=== PATIENT | female | born 1960 | race Caucasian/White ===

== ENCOUNTER 2016-11-17 00:49 | Observation (INO) | payer BC ==
[2016-11-17] MEDS ORDERED: Ketorolac 30 MG/ML SDV IVPUSH ONE (01:41)
[2016-11-17] MEDS ORDERED: Sodium Chloride 0.9% 1,000 ML IV SCH ×4 (01:45→05:15)
[2016-11-17] MEDS ORDERED: Ondansetron 4 MG/2 ML SDV IVPUSH ONE (02:33)
[2016-11-17] MEDS ORDERED: HYDROmorphone 0.5 MG/0.5 ML Syringe IVPUSH ONE (02:34)
[2016-11-17] MEDS ORDERED: Acetaminophen 325 MG Tab PO ONE (02:58)
[2016-11-17] MEDS ORDERED: Doxycycline 100 MG in Sodium Chloride 0.9% 100 ML IV ONE (02:59)
[2016-11-17] MEDS ORDERED: Doxycycline 100 MG Vial ONE (03:02)
--- NOTE | 2016-11-17 03:22 | EDM.PDOC ---
ED HPI GENERAL MEDICAL PROBLEM - General Chief Complaint: Headache Stated Complaint: HEADACHE FOR 2 DAYS Time Seen by Provider: 11/17/16 01:35 Source of Information: Reports: Patient History Limitations: Reports: No Limitations - History of Present Illness INITIAL COMMENTS - FREE TEXT/NARRATIVE: pt arrived looking very flushed and had a temp of 104. She was complaining of a severe headache, Onset: Gradual, Other (past 2 days. ) Duration: Day(s): headache Pain Score (Numeric/FACES): 7 - Related Data Allergies Allergy/AdvReac Type Severity Reaction Status Date / Time naproxen Allergy Rash Verified 11/17/16 01:14 Home Meds: Home Meds ALPRAZolam [Xanax] 0.5 mg PO BID PRN 07/05/14 [History] Escitalopram Oxalate [Lexapro] 20 mg PO DAILY 07/05/14 [History] Hydrocodone/Acetaminophen [Hydrocodon-Acetaminophen 5-325] 1 each PO QID [History] Zolpidem Tartrate 10 mg PO BEDTIME PRN 07/05/14 [History] QUEtiapine [SEROquel XR] 50 mg PO BEDTIME 11/17/16 [History] predniSONE [Prednisone] 10 mg PO TID 11/17/16 [History] Past Medical History HEENT History: Reports: Impaired Vision Cardiovascular History: Reports: None Respiratory History: Reports: None Gastrointestinal History: Reports: None Genitourinary History: Reports: None [employer] History: Reports: Musculoskeletal History: Reports: Arthritis Other Musculoskeletal History: left knee needs total replacement Neurological History: Reports: None Psychiatric History: Reports: Anxiety Endocrine/Metabolic History: Reports: None Hematologic History: Reports: None Immunologic History: Reports: None Oncologic (Cancer) History: Reports: None Dermatologic History: Reports: None - Infectious Disease History Infectious Disease History: Reports: Chicken Pox, Measles, Mumps, Rubella, Shingles - Past Surgical History Head Surgeries/Procedures: Reports: None HEENT Surgical History: Reports: None Cardiovascular Surgical History: Reports: None Respiratory Surgical History: Reports: None GI Surgical History: Reports: None Female Surgical History: Reports: Hysterectomy, Salpingo-Oophorectomy Endocrine Surgical History: Reports: None Neurological Surgical History: Reports: None Musculoskeletal Surgical History: Reports: Knee Replacement, Other (See Below) Other Musculoskeletal Surgeries/Procedures:: left knee replacement Oncologic Surgical History: Reports: None Dermatological Surgical History: Reports: None Social & Family History - Tobacco Use Smoking Status *Q: Current Every Day Smoker Years of Tobacco use: 13 Packs/Tins Daily: 0.5 - Caffeine Use Caffeine Use: Reports: Soda - Recreational Drug Use Recreational Drug Use: No ED ROS GENERAL - Review of Systems Review Of Systems: See Below Constitutional: Reports: Fever, Chills, Malaise, Diaphoresis HEENT: Reports: Other ( throat is painful. ) Respiratory: Reports: No Symptoms Cardiovascular: Reports: No Symptoms Endocrine: Reports: No Symptoms GI/Abdominal: Reports: No Symptoms : Reports: No Symptoms Musculoskeletal: Reports: Muscle Pain, Muscle Stiffness Skin: Reports: No Symptoms Neurological: Reports: Headache - Physical Exam Exam: See Below Text/Narrative:: pt arrived with a temp of 104. She was very flushed she had a severe headache, She was nauseated but did not vomit. Exam Limited By: No Limitations General Appearance: Alert, Anxious, Moderate Distress, Other (pupils equal and reactive. ) Ears: Normal TMs Nose: Normal Inspection Throat/Mouth: Normal Inspection Head Exam: Atraumatic Neck: Normal Inspection, Tender Lateral, Other ( alot of muscle spasm. ) Respiratory/Chest: No Respiratory Distress Cardiovascular: Regular Rate, Rhythm GI/Abdominal: Soft (Female) Exam: Deferred Rectal (Female) Exam: Deferred Neuro Exam (Abbreviated): Alert, Oriented, Normal Cognition Back Exam: Normal Inspection Extremities: Normal Inspection Psychiatric: Anxious Skin Exam: Warm, Other ( very flushed appearing. ) Course - Vital Signs Last Recorded V/S: Last Vital Signs Temp 37.3 C 11/17/16 03:46 Pulse 108 H 11/17/16 02:47 Resp 17 11/17/16 02:47 BP 130/71 11/17/16 02:47 Pulse Ox 96 11/17/16 02:47 - Orders/Labs/Meds Orders: Active Orders 24 hr Category Date Time Status BABESIA MICROTI IGG AND IGM [REF] Stat Lab 11/17/16 01:40 Received CULTURE BLOOD [BC] Urgent Lab 11/17/16 01:40 Received CULTURE BLOOD [BC] Urgent Lab 11/17/16 01:45 Received CULTURE STREP A CONFIRMATION [RM] Stat Lab 11/17/16 01:35 Results EHRLICHIA CHAFFEENSIS, IGG&IGM [REF] Stat Lab 11/17/16 01:40 Received LYME AB SCREEN RFLX [REF] Stat Lab 11/17/16 01:40 Received STREP SCRN A RAPID W CULT CONF [RM] Stat Lab 11/17/16 01:35 Results Sodium Chloride 0.9% [Normal Saline] 1,000 ml Med 11/17/16 01:45 Active IV ASDIRECTED Sodium Chloride 0.9% [Normal Saline] 1,000 ml Med 11/17/16 03:00 Active IV ASDIRECTED Sodium Chloride 0.9% [Normal Saline] 1,000 ml Med 11/17/16 03:00 Active IV ASDIRECTED Blood Culture x2 Reflex Set [OM.PC] Urgent Oth 11/17/16 01:39 Ordered Medication Orders Sodium Chloride (Normal Saline) 1,000 mls @ 999 mls/hr IV ASDIRECTED KEITH Last Admin: 11/17/16 01:45 Dose: 999 mls/hr Sodium Chloride (Normal Saline) 1,000 mls @ 999 mls/hr IV ASDIRECTED KEITH Last Admin: 11/17/16 03:14 Dose: 999 mls/hr Sodium Chloride (Normal Saline) 1,000 mls @ 200 mls/hr IV ASDIRECTED KEITH Last Admin: 11/17/16 04:30 Dose: 200 mls/hr Labs: Laboratory Tests 11/17/16 11/17/16 11/17/16 Range/Units 01:40 01:40 01:40 WBC 6.1 (4.5-11.0) K/uL RBC 5.17 (3.30-5.50) M/uL Hgb 16.2 H (12.0-15.0) g/dL Hct 47.4 (36.0-48.0) % MCV 92 (80-98) fL MCH 31 (27-31) pg MCHC 34 (32-36) % Plt Count 125 L (150-400) K/uL Add Manual Diff Yes Neutrophils % (Manual) 68 H (36-66) % Band Neutrophils % 17 H (5-11) % Lymphocytes % (Manual) 10 L (24-44) % Monocytes % (Manual) 5 (2-6) % Sodium 134 L (140-148) mmol/L Potassium 3.5 L (3.6-5.2) mmol/L Chloride 98 L (100-108) mmol/L Carbon Dioxide 23 (21-32) mmol/L Anion Gap 16.5 H (5.0-14.0) mmol/L BUN 7 (7-18) mg/dL Creatinine 0.9 (0.6-1.0) mg/dL Est Cr Clr Drug Dosing 68.68 mL/min Estimated GFR (MDRD) > 60 (>60) Glucose 132 H (74-106) mg/dL Lactic Acid (0.4-2.0) mmol/L Calcium 10.7 H (8.5-10.1) mg/dL Total Bilirubin 0.4 (0.2-1.0) mg/dL AST 100 H (15-37) U/L ALT 91 H (12-78) U/L Alkaline Phosphatase 164 H (46-116) U/L C-Reactive Protein 13.41 H (0.0-0.3) mg/dL Total Protein 8.1 (6.4-8.2) g/dL Albumin 3.2 L (3.4-5.0) g/dL Globulin 4.9 H (2.3-3.5) g/dL Albumin/Globulin Ratio 0.7 L (1.2-2.2) Urine Color Urine Appearance Urine pH (4.5-8.0) Ur Specific [place] (1.008-1.030) Urine Protein (NEGATIVE) mg/dL Urine Glucose (UA) (NEGATIVE) mg/dL Urine Ketones (NEGATIVE) mg/dL Urine Occult Blood (NEGATIVE) Urine Nitrite (NEGATIVE) Urine Bilirubin (NEGATIVE) Urine Urobilinogen (NORMAL) mg/dL Ur Leukocyte Esterase (NEGATIVE) Urine RBC (0-5) Urine WBC (0-5) Ur Epithelial Cells Amorphous Sediment Urine Bacteria Urine Mucus 11/17/16 11/17/16 Range/Units 01:45 01:55 WBC (4.5-11.0) K/uL RBC (3.30-5.50) M/uL Hgb (12.0-15.0) g/dL Hct (36.0-48.0) % MCV (80-98) fL MCH (27-31) pg MCHC (32-36) % Plt Count (150-400) K/uL Add Manual Diff Neutrophils % (Manual) (36-66) % Band Neutrophils % (5-11) % Lymphocytes % (Manual) (24-44) % Monocytes % (Manual) (2-6) % Sodium (140-148) mmol/L Potassium (3.6-5.2) mmol/L Chloride (100-108) mmol/L Carbon Dioxide (21-32) mmol/L Anion Gap (5.0-14.0) mmol/L BUN (7-18) mg/dL Creatinine (0.6-1.0) mg/dL Est Cr Clr Drug Dosing mL/min Estimated GFR (MDRD) (>60) Glucose (74-106) mg/dL Lactic Acid 1.7 (0.4-2.0) mmol/L Calcium (8.5-10.1) mg/dL Total Bilirubin (0.2-1.0) mg/dL AST (15-37) U/L ALT (12-78) U/L Alkaline Phosphatase (46-116) U/L C-Reactive Protein (0.0-0.3) mg/dL Total Protein (6.4-8.2) g/dL Albumin (3.4-5.0) g/dL Globulin (2.3-3.5) g/dL Albumin/Globulin Ratio (1.2-2.2) Urine Color Yellow Urine Appearance Clear Urine pH 8.0 (4.5-8.0) Ur Specific [place] 1.015 (1.008-1.030) Urine Protein Negative (NEGATIVE) mg/dL Urine Glucose (UA) Normal (NEGATIVE) mg/dL Urine Ketones Negative (NEGATIVE) mg/dL Urine Occult Blood Large (NEGATIVE) Urine Nitrite Negative (NEGATIVE) Urine Bilirubin Negative (NEGATIVE) Urine Urobilinogen Normal (NORMAL) mg/dL Ur Leukocyte Esterase Negative (NEGATIVE) Urine RBC 0-5 (0-5) Urine WBC 0-5 (0-5) Ur Epithelial Cells Moderate Amorphous Sediment Not seen Urine Bacteria Few Urine Mucus Not seen Meds: Medications Generic Name Dose Route Start Last Admin Trade Name Freq PRN Reason Stop Dose Admin Sodium Chloride 1,000 mls @ 999 mls/hr 11/17/16 01:45 11/17/16 01:45 Normal Saline IV 999 mls/hr ASDIRECTED KEITH Administration Sodium Chloride 1,000 mls @ 999 mls/hr 11/17/16 03:00 11/17/16 03:14 Normal Saline IV 999 mls/hr ASDIRECTED KEITH Administration Sodium Chloride 1,000 mls @ 200 mls/hr 11/17/16 03:00 11/17/16 04:30 Normal Saline IV 200 mls/hr ASDIRECTED KEITH Administration Discontinued Medications Generic Name Dose Route Start Last Admin Trade Name Christa PRN Reason Stop Dose Admin Acetaminophen 1,000 mg 11/17/16 02:58 11/17/16 03:16 Tylenol PO 11/17/16 02:59 1,000 mg NOW ONE Administration Doxycycline Hyclate Confirm 11/17/16 03:02 11/17/16 03:18 Vibramycin Administered 11/17/16 03:03 Not Given Dose 100 mg .ROUTE .STK-MED ONE Hydromorphone HCl 0.5 mg 11/17/16 02:34 11/17/16 02:47 Dilaudid IVPUSH 11/17/16 02:35 0.5 mg ONETIME ONE Administration Doxycycline Hyclate 100 mg/ 100 mls @ 100 mls/hr 11/17/16 02:59 11/17/16 03: 18 Sodium Chloride IV 11/17/16 03:58 100 mls/hr ONETIME ONE Administration Ketorolac Tromethamine 30 mg 11/17/16 01:41 11/17/16 01:52 Toradol IVPUSH 11/17/16 01:42 30 mg ONETIME ONE Administration Ondansetron HCl 4 mg 11/17/16 02:33 11/17/16 02:47 Zofran IVPUSH 11/17/16 02:34 4 mg ONETIME ONE Administration - Re-Assessments/Exams Free Text/Narrative Re-Assessment/Exam: 11/17/16 04:43 pt was found to have elevated liver enzymes, wbc is not high platlets are low, her crp is elevated. She had tick studies drawn. She was given doxycline. Departure - Departure Time of Disposition: 04:44 Disposition: Admitted As Inpatient 67 Condition: Fair Clinical Impression: Anaplasmosis - Discharge Information Forms: ED Department Discharge Care Plan Goals: admit to Dr Lomax. - My Orders Last 24 Hours: My Active Orders 11/17/16 01:35 CULTURE STREP A CONFIRMATION [RM] Stat STREP SCRN A RAPID W CULT CONF [RM] Stat 11/17/16 01:39 Blood Culture x2 Reflex Set [OM.PC] Urgent 11/17/16 01:40 BABESIA MICROTI IGG AND IGM [REF] Stat CULTURE BLOOD [BC] Urgent EHRLICHIA CHAFFEENSIS, IGG&IGM [REF] Stat LYME AB SCREEN RFLX [REF] Stat 11/17/16 01:45 CULTURE BLOOD [BC] Urgent Sodium Chloride 0.9% [Normal Saline] 1,000 ml IV ASDIRECTED 11/17/16 03:00 Sodium Chloride 0.9% [Normal Saline] 1,000 ml IV ASDIRECTED Sodium Chloride 0.9% [Normal Saline] 1,000 ml IV ASDIRECTED - Assessment/Plan Last 24 Hours: My Active Orders 11/17/16 01:35 CULTURE STREP A CONFIRMATION [RM] Stat STREP SCRN A RAPID W CULT CONF [RM] Stat 11/17/16 01:39 Blood Culture x2 Reflex Set [OM.PC] Urgent 11/17/16 01:40 BABESIA MICROTI IGG AND IGM [REF] Stat CULTURE BLOOD [BC] Urgent EHRLICHIA CHAFFEENSIS, IGG&IGM [REF] Stat LYME AB SCREEN RFLX [REF] Stat 11/17/16 01:45 CULTURE BLOOD [BC] Urgent Sodium Chloride 0.9% [Normal Saline] 1,000 ml IV ASDIRECTED 11/17/16 03:00 Sodium Chloride 0.9% [Normal Saline] 1,000 ml IV ASDIRECTED Sodium Chloride 0.9% [Normal Saline] 1,000 ml IV ASDIRECTED
[2016-11-17] MEDS ORDERED: Acetaminophen 325 MG Tab PO PRN (05:15)
[2016-11-17] MEDS ORDERED: Doxycycline 100 MG in Sodium Chloride 0.9% 100 ML IV SCH (05:30)
[2016-11-17] MEDS ORDERED: Zolpidem 5 MG Tab PO PRN (05:45)
--- NOTE | 2016-11-17 06:21 | HP ---
CHIEF COMPLAINT: Headache with fever. HISTORY OF PRESENT ILLNESS: A 56-year-old, who has not had any known tick bites, no rashes, states that for the last 4 days has had significant headache, which has worsened, fever, chills, back and body aches. Otherwise no other complaints other than sore throat, came into emergency room for further evaluation. Strep test was negative, suspected anaplasmosis and I was asked to admit the patient for further evaluation treatment. PAST MEDICAL HISTORY: She is on prednisone right now because of foot issue that she is going to be having surgery done at [place] and she is on prednisone 10 mg 3 times a day for 7 days. She also has a history of anxiety. She has had a history of chronic pain as well as history of insomnia. She has had history of arthritis. MEDICATIONS: 1. Alprazolam 0.5 mg b.i.d. p.r.n. 2. Lexapro 20 mg daily. 3. Hydrocodone q.i.d. 4. Seroquel 50 mg at bedtime. 5. Zolpidem 10 mg at bedtime. 6. Prednisone 10 mg t.i.d. for another 2 days. ALLERGIES: NAPROXEN. SOCIAL HISTORY: Has been a smoker. FAMILY HISTORY: Noncontributory. REVIEW OF SYSTEMS: She does report headaches. No vision changes. She has a sore throat but no other upper respiratory symptoms. No cough, shortness of breath, or chest pain. No nausea, vomiting, diarrhea, or constipation. No urinary problems reported. No skin problems. Has not noticed a definite tick bite. No neurologic complaints other than above. OBJECTIVE: VITAL SIGNS: Weight 72.3 kg. Temperature initially 40.0, now 37.3; pulse initially was 144, now is 108; blood pressure 134/87; respirations 22 initially, now 17; and O2 saturation 98% on room air. HEENT: Pharynx is unremarkable. NECK: Supple. No adenopathy or thyromegaly. LUNGS: Clear. HEART: Regular without murmurs. ABDOMEN: Soft. Nontender. No mass or organomegaly palpated. EXTREMITIES: No edema. SKIN: Negative for rashes. She did, however, have achiness of her muscles. NEUROLOGIC: The patient seems to be alert and oriented, resting comfortably. Apparently when she drove herself in, she was quite dizzy. LABORATORY DATA: White count 6.1, hemoglobin 16.2, and platelets 125,000 with 68% neutrophils, 17% bands, 10% lymphocytes. Sodium 134, potassium 3.5, chloride was 98, BUN 7, and creatinine 0.9. Liver functions: AST was elevated at 100, ALT 91, C-reactive protein was elevated at 13.41. Urinalysis was unremarkable. Rapid strep was negative. ASSESSMENT AND PLAN: Headache and fever with myalgias. No definite tick bites. It certainly sounds like anaplasmosis with lab picture also. The patient already started on IV doxycycline, which we will continue every 12 hours. Tylenol for fever. Transfer care to hospitalist service. Admit her for observation. Anticipate less than 2 midnight stay. Familia Lomax MD /[phone]
[2016-11-17] MEDS: Acetaminophen/HYDROcodone 325-5 MG Tab PO SCH ×2 (07:08→09:52)
[2016-11-17] MEDS: ALPRAZolam 0.5 MG Tab PO PRN ×2 (07:09→19:34)
[2016-11-17] MEDS: predniSONE 10 MG Tab PO SCH ×3 (08:09→17:16)
[2016-11-17] MEDS ORDERED: Lactated Ringers 1,000 ML IV SCH (08:15)
[2016-11-17] MEDS ORDERED: Potassium Chloride 20 MEQ Tab.ER PO ONE (09:00)
[2016-11-17] MEDS: Escitalopram 20 MG Tab PO SCH (09:49)
--- NOTE | 2016-11-17 11:23 | PCM.PN ---
- General Info Date of Service: 11/17/16 Functional Status: Reports: Pain Controlled, Urinating - Review of Systems General: Reports: Fever, Weakness. Denies: Chills HEENT: Reports: Headaches Pulmonary: Reports: No Symptoms Cardiovascular: Reports: No Symptoms Gastrointestinal: Reports: Decreased Appetite. Denies: Constipation, Diarrhea, Nausea, Vomiting Systems Review Comment:: Ms. Weston is a 56-year-old woman who was admitted early this morning with fever, headache, myalgias, dehydration, secondary to anaplasmosis. Symptoms have been present for 2-3 days prior to admission and had gradually increased in intensity. She is feeling better with significant improvement in symptoms over the past few hours. - Patient Data Vitals - Most Recent: Last Vital Signs Temp 98.1 F 11/17/16 07:20 Pulse 81 11/17/16 07:20 Resp 16 11/17/16 07:20 BP 89/51 L 11/17/16 07:20 Pulse Ox 97 11/17/16 07:20 Weight - Most Recent: 161 lb I&O - Last 24 Hours: Intake & Output 11/16/16 11/17/16 11/17/16 22:59 06:59 14:59 Intake Total 300 Output Total 600 Balance -300 Med Orders - Current: Current Medications Acetaminophen (Tylenol) 650 mg PO Q4H PRN PRN Reason: Pain (Mild 1-3)/fever Hydrocodone Bitart/Acetaminophen ([place] 325-5 Mg) 1 tab PO QID [facility] Last Admin: 11/17/16 09:52 Dose: 1 tab Alprazolam (Xanax) 0.5 mg PO BID PRN PRN Reason: Anxiety Last Admin: 11/17/16 07:09 Dose: 0.5 mg Escitalopram Oxalate (Lexapro) 20 mg PO DAILY [facility] Last Admin: 11/17/16 09:49 Dose: 20 mg Sodium Chloride (Normal Saline) 1,000 mls @ 999 mls/hr IV ASDIRECTED [facility] Last Admin: 11/17/16 03:14 Dose: 999 mls/hr Doxycycline Hyclate 100 mg/ (Sodium Chloride) 100 mls @ 100 mls/hr IV Q12H [facility] Prednisone (Prednisone) 10 mg PO TIDMEALS [facility] Last Admin: 11/17/16 08:09 Dose: 10 mg Quetiapine Fumarate (Seroquel Xr) 50 mg PO BEDTIME KEITH Zolpidem Tartrate (Ambien) 10 mg PO BEDTIME PRN PRN Reason: Insomnia Discontinued Medications Acetaminophen (Tylenol) 1,000 mg PO NOW ONE Stop: 11/17/16 02:59 Last Admin: 11/17/16 03:16 Dose: 1,000 mg Doxycycline Hyclate (Vibramycin) Confirm Administered Dose 100 mg .ROUTE .STK- MED ONE Stop: 11/17/16 03:03 Last Admin: 11/17/16 03:18 Dose: Not Given Hydromorphone HCl (Dilaudid) 0.5 mg IVPUSH ONETIME ONE Stop: 11/17/16 02:35 Last Admin: 11/17/16 02:47 Dose: 0.5 mg Sodium Chloride (Normal Saline) 1,000 mls @ 999 mls/hr IV ASDIRECTED [facility] Last Admin: 11/17/16 01:45 Dose: 999 mls/hr Doxycycline Hyclate 100 mg/ (Sodium Chloride) 100 mls @ 100 mls/hr IV ONETIME ONE Stop: 11/17/16 03:58 Last Admin: 11/17/16 03:18 Dose: 100 mls/hr Sodium Chloride (Normal Saline) 1,000 mls @ 200 mls/hr IV ASDIRECTED [facility] Last Admin: 11/17/16 04:30 Dose: 200 mls/hr Doxycycline Hyclate 100 mg/ (Sodium Chloride) 100 mls @ 100 mls/hr IV Q12H [facility] Last Admin: 11/17/16 08:21 Dose: Not Given Lactated Ringer's (Ringers, Lactated) 1,000 mls @ 500 mls/hr IV ASDIRECTED [facility] Stop: 11/17/16 10:16 Ketorolac Tromethamine (Toradol) 30 mg IVPUSH ONETIME ONE Stop: 11/17/16 01:42 Last Admin: 11/17/16 01:52 Dose: 30 mg Ondansetron HCl (Zofran) 4 mg IVPUSH ONETIME ONE Stop: 11/17/16 02:34 Last Admin: 11/17/16 02:47 Dose: 4 mg Potassium Chloride (Klor-Con M20) 40 meq PO ONETIME ONE Stop: 11/17/16 09:01 Last Admin: 11/17/16 09:49 Dose: 40 meq - Exam General: Alert, Oriented, Cooperative, Mild Distress Lungs: Clear to Auscultation, Normal Respiratory Effort Cardiovascular: Regular Rate, Regular Rhythm, No Murmurs GI/Abdominal Exam: Normal Bowel Sounds, Soft, Non-Tender, No Distention Extremities: Normal Inspection, No Pedal Edema Skin: Warm, Dry, Intact - Problem List Review Problem List Initiated/Reviewed/Updated: Yes - My Orders Last 24 Hours: My Active Orders 11/17/16 11:19 Acetaminophen/HYDROcodone [[place] 325-5 MG] 2 tab PO QID PRN 11/17/16 11:30 Enoxaparin [Lovenox] 40 mg SUBCUT DAILY - Plan Plan:: ASSESSMENT AND PLAN Anaplasmosis-significant improvement in symptoms since admission -Continue IV fluids for hydration -Pain medication as needed -Doxycycline 100 mg IV every 12 hours MAINTENANCE ISSUES -DVT prophylaxis;Lovenox 40 mg subcutaneous daily -GI prophylaxis;not indicated -Yancey catheter;not indicated -Nutrition;regular diet -Nicotinic dependence;not required CODE STATUS-full code ADMISSION STATUS-this patient will be admitted to observation status, expect no more than a one night hospital stay for evaluation and management of problems as outlined above. DISPOSITION-anticipate discharge to home after the hospital stay. PRIMARY CARE PROVIDER-
[2016-11-17] MEDS: Enoxaparin 40 MG/0.4 ML Syringe SUBCUT SCH (14:15)
[2016-11-17] MEDS: Acetaminophen/HYDROcodone 325-5 MG Tab PO PRN (15:42)
[2016-11-17] MEDS: Doxycycline 100 MG in Sodium Chloride 0.9% 100 ML IV SCH (17:48)
[2016-11-17] MEDS ORDERED: QUEtiapine 50 MG Tab.SR PO SCH (21:00)
[2016-11-18] MEDS: Acetaminophen/HYDROcodone 325-5 MG Tab PO PRN ×2 (01:52→06:22)
[2016-11-18] MEDS: Doxycycline 100 MG in Sodium Chloride 0.9% 100 ML IV SCH (05:10)
[2016-11-18] MEDS: ALPRAZolam 0.5 MG Tab PO PRN (06:22)
[2016-11-18] MEDS: predniSONE 10 MG Tab PO SCH ×2 (08:12→12:43)
[2016-11-18] MEDS: Escitalopram 20 MG Tab PO SCH (10:51)
[2016-11-18] MEDS ORDERED: HYDROmorphone 0.5 MG/0.5 ML Syringe IVPUSH PRN (10:57)
[2016-11-18] MEDS ORDERED: Acetaminophen/HYDROcodone 325-5 MG Tab PO PRN (10:57)
[2016-11-18 11:18] VITALS: BP 110/62
[2016-11-18] MEDS: Enoxaparin 40 MG/0.4 ML Syringe SUBCUT SCH (13:26)
--- NOTE | 2016-11-18 14:24 | PCM.DCSUM1 ---
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 - Discharge Data Discharge Date: 11/18/16 Discharge Disposition: Home, Self-Care 01 Condition: Fair - Discharge Diagnosis/Problem(s) (1) Anaplasmosis SNOMED Code(s): 114266495 ICD Code: A77.49 - OTHER EHRLICHIOSIS Status: Acute Current Visit: Yes - Patient Summary/Data Hospital Course: Ms. Weston is a 56-year-old woman who developed progressive symptoms associated with fever including headache myalgias and decrease in appetite. On evaluation she was found to have normal white blood cell count and low platelet count as well as liver enzyme elevations. Symptom complex in addition to laboratory studies were felt to be consistent with anaplasmosis. She was admitted to the hospital and given IV antibiotic therapy with doxycycline 100 mg twice daily as well as IV fluids, pain medication, and antiemetic therapy. With these interventions she felt significantly improved by the time of discharge but symptoms have not totally resolved. She did find an area of probable tick bite under her right arm with a bull's-eye lesion. For this reason she will be treated with 3 weeks of antibiotic therapy for possibility of Lyme's disease in addition to the anaplasmosis. She will be discharged on doxycycline 100 mg by mouth twice daily. Follow-up appointment will be scheduled with her primary care provider Dr. Lomax within one month. Activity will be as tolerated, she will be off work until November 22. She will plan to resume her usual diet. - Patient Instructions Diet: Usual Diet as Tolerated Activity: As Tolerated Activity, Other: Off work until November Other/Special Instructions: Schedule follow-up appointment with primary care provider Dr. Lomax within one week. - Discharge Plan Prescriptions/Med Rec: Doxycycline [Vibramycin] 100 mg PO BID #38 cap Home Medications: Home Meds ALPRAZolam [Xanax] 0.5 mg PO BID PRN 07/05/14 [History] Escitalopram Oxalate [Lexapro] 20 mg PO DAILY 07/05/14 [History] Hydrocodone/Acetaminophen [Hydrocodon-Acetaminophen 5-325] 1 each PO QID [History] Zolpidem Tartrate 10 mg PO BEDTIME PRN 07/05/14 [History] QUEtiapine [SEROquel XR] 50 mg PO BEDTIME 11/17/16 [History] predniSONE [Prednisone] 10 mg PO TID 11/17/16 [History] Doxycycline [Vibramycin] 100 mg PO BID #38 cap 11/18/16 [Rx] Referrals: Familia Lomax MD [Physician] - - Patient Data Vitals - Most Recent: Last Vital Signs Temp 99.0 F 11/18/16 11:17 Pulse 78 11/18/16 11:17 Resp 18 11/18/16 11:17 BP 110/62 11/18/16 11:17 Pulse Ox 94 L 11/18/16 11:17 Weight - Most Recent: 161 lb I&O - Last 24 hours: Intake & Output 11/17/16 11/18/16 11/18/16 22:59 06:59 14:59 Intake Total 1331 100 Output Total 2050 Balance -719 100 Lab Results - Last 24 hrs: Laboratory Results - last 24 hr 11/18/16 11/18/16 Range/Units 05:49 05:49 WBC 4.4 L (4.5-11.0) K/uL RBC 4.44 (3.30-5.50) M/uL Hgb 13.7 D (12.0-15.0) g/dL Hct 41.7 (36.0-48.0) % MCV 94 (80-98) fL MCH 31 (27-31) pg MCHC 33 (32-36) % Plt Count 64 L (150-400) K/uL Sodium 138 L (140-148) mmol/L Potassium 3.9 (3.6-5.2) mmol/L Chloride 106 (100-108) mmol/L Carbon Dioxide 25 (21-32) mmol/L Anion Gap 10.9 (5.0-14.0) mmol/L BUN 5 L (7-18) mg/dL Creatinine 0.6 (0.6-1.0) mg/dL Est Cr Clr Drug Dosing 103.02 mL/min Estimated GFR (MDRD) > 60 (>60) Glucose 129 H (74-106) mg/dL Calcium 10.6 H (8.5-10.1) mg/dL Total Bilirubin 0.2 (0.2-1.0) mg/dL AST 65 H (15-37) U/L ALT 87 H (12-78) U/L Alkaline Phosphatase 160 H (46-116) U/L Total Protein 6.7 (6.4-8.2) g/dL Albumin 2.5 L (3.4-5.0) g/dL Globulin 4.2 H (2.3-3.5) g/dL Albumin/Globulin Ratio 0.6 L (1.2-2.2) Med Orders - Current: Current Medications Acetaminophen (Tylenol) 650 mg PO Q4H PRN PRN Reason: Pain (Mild 1-3)/fever Hydrocodone Bitart/Acetaminophen ([place] 325-5 Mg) 2 tab PO Q4H PRN PRN Reason: Pain Last Admin: 11/18/16 11:03 Dose: 2 tab Alprazolam (Xanax) 0.5 mg PO BID PRN PRN Reason: Anxiety Last Admin: 11/18/16 06:22 Dose: 0.5 mg Enoxaparin Sodium (Lovenox) 40 mg SUBCUT Q24H [facility] Last Admin: 11/18/16 13:26 Dose: Not Given Escitalopram Oxalate (Lexapro) 20 mg PO DAILY [facility] Last Admin: 11/18/16 10:51 Dose: 20 mg Hydromorphone HCl (Dilaudid) 0.5 mg IVPUSH Q2H PRN PRN Reason: Pain Doxycycline Hyclate 100 mg/ (Sodium Chloride) 100 mls @ 100 mls/hr IV Q12H [facility] Last Admin: 11/18/16 05:10 Dose: 100 mls/hr Prednisone (Prednisone) 10 mg PO TIDMEALS [facility] Last Admin: 11/18/16 12:43 Dose: 10 mg Quetiapine Fumarate (Seroquel Xr) 50 mg PO BEDTIME [facility] Last Admin: 11/17/16 21:10 Dose: 50 mg Zolpidem Tartrate (Ambien) 10 mg PO BEDTIME PRN PRN Reason: Insomnia Last Admin: 11/17/16 21:09 Dose: 10 mg Discontinued Medications Acetaminophen (Tylenol) 1,000 mg PO NOW ONE Stop: 11/17/16 02:59 Last Admin: 11/17/16 03:16 Dose: 1,000 mg Hydrocodone Bitart/Acetaminophen ([place] 325-5 Mg) 1 tab PO QID KEITH Last Admin: 11/17/16 09:52 Dose: 1 tab Hydrocodone Bitart/Acetaminophen ([place] 325-5 Mg) 2 tab PO QID PRN PRN Reason: Pain Last Admin: 11/18/16 06:22 Dose: 2 tab Doxycycline Hyclate (Vibramycin) Confirm Administered Dose 100 mg .ROUTE .STK- MED ONE Stop: 11/17/16 03:03 Last Admin: 11/17/16 03:18 Dose: Not Given Hydromorphone HCl (Dilaudid) 0.5 mg IVPUSH ONETIME ONE Stop: 11/17/16 02:35 Last Admin: 11/17/16 02:47 Dose: 0.5 mg Sodium Chloride (Normal Saline) 1,000 mls @ 999 mls/hr IV ASDIRECTED [facility] Last Admin: 11/17/16 01:45 Dose: 999 mls/hr Doxycycline Hyclate 100 mg/ (Sodium Chloride) 100 mls @ 100 mls/hr IV ONETIME ONE Stop: 11/17/16 03:58 Last Admin: 11/17/16 03:18 Dose: 100 mls/hr Sodium Chloride (Normal Saline) 1,000 mls @ 999 mls/hr IV ASDIRECTED [facility] Last Admin: 11/17/16 03:14 Dose: 999 mls/hr Sodium Chloride (Normal Saline) 1,000 mls @ 200 mls/hr IV ASDIRECTED [facility] Last Admin: 11/17/16 04:30 Dose: 200 mls/hr Doxycycline Hyclate 100 mg/ (Sodium Chloride) 100 mls @ 100 mls/hr IV Q12H [facility] Last Admin: 11/17/16 08:21 Dose: Not Given Lactated Ringer's (Ringers, Lactated) 1,000 mls @ 500 mls/hr IV ASDIRECTED [facility] Stop: 11/17/16 10:16 Ketorolac Tromethamine (Toradol) 30 mg IVPUSH ONETIME ONE Stop: 11/17/16 01:42 Last Admin: 11/17/16 01:52 Dose: 30 mg Ondansetron HCl (Zofran) 4 mg IVPUSH ONETIME ONE Stop: 11/17/16 02:34 Last Admin: 11/17/16 02:47 Dose: 4 mg Potassium Chloride (Klor-Con M20) 40 meq PO ONETIME ONE Stop: 11/17/16 09:01 Last Admin: 11/17/16 09:49 Dose: 40 meq *Q Meaningful Use (DIS) - VTE *Q VTE Criteria *Q: - Stroke *Q Stroke Criteria *Q: - AMI *Q AMI Criteria *Q:
== END 2016-11-18 15:15 | disposition home or self-care (01) ==
LOC: JP.ED 00:49 → JP.MS 05:26
PROVIDERS: ADMIT Family Medicine; ATTEND Family Medicine
DX: A77.49 Other ehrlichiosis (principal); F41.9 Anxiety disorder, unspecified; Z88.8 Allergy status to other drugs, medicaments and biological substances; Z79.899 Other long term (current) drug therapy
CPT/HCPCS: 36415; 80053; 81001; 83605; 85025; 85027; 86140; 86618; 86666; 86753; 87040; 87081; 87430; 96361; 96365; 96366; 96372; 96375; 99285; A9270; G0378; J1170; J1650; J1885; J2405; J7030; J7040; 96374

== ENCOUNTER 2017-08-16 00:17 | Emergency (ER) | payer BC, MEDICAID ==
[2017-08-16 00:26] VITALS: BP 138/80
--- NOTE | 2017-08-16 00:56 | EDM.PDOC ---
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 It's swollen, and very tender to movement especially the middle finger. She had no symptoms prior to the sudden onset of pain and swelling. Onset: Sudden Duration: Hour(s): (Within the last 6 hours) Location: Reports: Upper Extremity, Right Severity: Moderate Worsens with: Reports: Movement Associated Symptoms: Reports: No Other Symptoms wrist Pain Score (Numeric/FACES): 6 - Related Data Allergies Allergy/AdvReac Type Severity Reaction Status Date / Time naproxen Allergy Rash Verified 08/16/17 00:26 Home Meds: Home Meds ALPRAZolam [Xanax] 0.5 mg PO BID PRN 07/05/14 [History] Escitalopram Oxalate [Lexapro] 20 mg PO DAILY 07/05/14 [History] Hydrocodone/Acetaminophen [Hydrocodon-Acetaminophen 5-325] 1 each PO QID [History] Zolpidem Tartrate 10 mg PO BEDTIME PRN 07/05/14 [History] QUEtiapine [SEROquel XR] 50 mg PO BEDTIME 11/17/16 [History] Past Medical History HEENT History: Reports: Impaired Vision Cardiovascular History: Reports: None Respiratory History: Reports: None Gastrointestinal History: Reports: None Genitourinary History: Reports: None 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: Musculoskeletal History: Reports: Arthritis Other Musculoskeletal History: left knee needs total replacement Neurological History: Reports: None Psychiatric History: Reports: Anxiety, Depression Endocrine/Metabolic History: Reports: None Hematologic History: Reports: None Immunologic History: Reports: None Oncologic (Cancer) History: Reports: None Dermatologic History: Reports: None - Infectious Disease History Infectious Disease History: Reports: Chicken Pox, Measles, Mumps, Rubella, Shingles - Past Surgical History Head Surgeries/Procedures: Reports: None HEENT Surgical History: Reports: None Cardiovascular Surgical History: Reports: None Respiratory Surgical History: Reports: None GI Surgical History: Reports: None Female Surgical History: Reports: Hysterectomy, Salpingo-Oophorectomy Endocrine Surgical History: Reports: None Neurological Surgical History: Reports: None Musculoskeletal Surgical History: Reports: Knee Replacement, Other (See Below) Other Musculoskeletal Surgeries/Procedures:: left knee replacement Oncologic Surgical History: Reports: None Dermatological Surgical History: Reports: None Social & Family History - Tobacco Use Smoking Status *Q: Current Every Day Smoker Years of Tobacco use: 13 Packs/Tins Daily: 0.5 Used Tobacco, but Quit: No Second Hand Smoke Exposure: Yes - Caffeine Use Caffeine Use: Reports: Soda - Recreational Drug Use Recreational Drug Use: No Review of Systems - Review of Systems Review Of Systems: See Below Constitutional: Denies: Fever Respiratory: Denies: Shortness of Breath Cardiovascular: Denies: Chest Pain GI/Abdominal: Denies: Abdominal Pain Musculoskeletal: Reports: Other (Patient does have a chronic arthritic syndrome which has no specific diagnosis) Skin: Denies: Bruising Neurological: Denies: Paresthesia ED EXAM, GENERAL - Physical Exam Exam: See Below Exam Limited By: No Limitations General Appearance: Alert, Mild Distress (Patient is actually quite uncomfortable) Head: Atraumatic Respiratory/Chest: No Respiratory Distress Extremities: Other (Exam is otherwise limited to the right upper extremity. She has no tenderness about the elbow, but on the extensor surface of the forearm she starts having palpation tenderness just proximal to half way down the forearm. The pain increases with palpation or movement of the middle finger to an area of swelling and tenderness over the dorsum of the wrist. There is no crepitus. No ecchymosis.) Course - Vital Signs Last Recorded V/S: Last Vital Signs Temp 97.6 F 08/16/17 00:25 Pulse 85 08/16/17 00:25 Resp 16 08/16/17 00:25 BP 138/80 08/16/17 00:25 Pulse Ox 98 08/16/17 00:25 - Orders/Labs/Meds Orders: Active Orders 24 hr Category Date Time Status Wrist Comp Min 3V Rt [CR] Stat Exams 08/16/17 00:49 Taken DME for Discharge [COMM] Stat Oth 08/16/17 01:34 Ordered - Re-Assessments/Exams Free Text/Narrative Re-Assessment/Exam: 08/16/17 01:31 An x-ray of the wrist was obtained which did show arthritis, also significant calcification in the ulnar carpal joint space. This may indicate acute chondrocalcinosis. No fracture is seen. Patient was placed in a short arm Ortho-Glass splint and given a sling. She was started on 50 mg of prednisone daily for the next 5 days and given 12 additional hydrocodone. I would like to have her reassessed on Saturday, she needs to be seen by orthopedics. I did give her information on possibly seen Agusto Minor, if there is orthopedics available in [place] tomorrow or early next week that would be reasonable as well. Departure - Departure Time of Disposition: :50 Disposition: Home, Self-Care 01 Condition: Good Clinical Impression: Sprain of wrist, right Qualifiers: Encounter type: initial encounter Qualified Code(s): S63.501A - Unspecified sprain of right wrist, initial encounter - Discharge Information Instructions: Wrist Sprain, Adult Referrals: Gene Noland MD [Primary Care Provider] - Forms: ED Department Discharge Care Plan Goals: Take 5 pills of prednisone with your first meal of the day for at least the next 4 days and up to 6 days if tolerating the medicine well. Add pain medication if needed, keep the wrist immobilized in the splint through the weekend unless rechecked on Saturday. If not seen on Saturday, recheck with Agusto Minor or orthopedics in [place] or [place] early next week. If being rechecked somewhere other than [place], take x-ray with to your appointment. - My Orders Last 24 Hours: My Active Orders 08/16/17 00:49 Wrist Comp Min 3V Rt [CR] Stat 08/16/17 01:34 DME for Discharge [COMM] Stat - Assessment/Plan Last 24 Hours: My Active Orders 08/16/17 00:49 Wrist Comp Min 3V Rt [CR] Stat 08/16/17 01:34 DME for Discharge [COMM] Stat
--- NOTE | 2017-08-16 09:02 | CR ---
Wrist Comp Min 3V Rt HISTORY: pain, swelling FINDINGS: No acute fracture or dislocation is identified. Carpal bone alignment is satisfactory. There are deg enerative changes at the wrist with prominent cartilage calcification. Bony architecture and joint sp aces are preserved. Soft tissues are unremarkable. IMPRESSION: Degenerative changes right wrist with chondrocalcinosis. No fracture or other acute right wrist abnor mality is identified.
== END 2017-08-16 01:50 | disposition home or self-care (01) ==
LOC: JP.ED 00:17
DX: S63.501A Unspecified sprain of right wrist, initial encounter (principal); F17.210 Nicotine dependence, cigarettes, uncomplicated; Z88.6 Allergy status to analgesic agent; Z79.899 Other long term (current) drug therapy; X58.XXXA Exposure to other specified factors, initial encounter
CPT/HCPCS: 29125; 73110-26-RT; 73110-RT; 99284-25

== ENCOUNTER 2017-11-09 07:18 | Emergency (ER) | payer SELFPAY ==
[2017-11-09 07:33] VITALS: BP 144/77
[2017-11-09] MEDS ORDERED: fentaNYL 100 MCG/2 ML SDV IM ONE (07:48)
--- NOTE | 2017-11-09 07:53 | EDM.PDOC ---
ED HPI GENERAL MEDICAL PROBLEM - General Chief Complaint: Upper Extremity Injury/Pain Stated Complaint: FELL DOWN STAIRS/HURT RT FOOT & SHOULDER Time Seen by Provider: 11/09/17 07:43 Source of Information: Reports: Patient, RN Notes Reviewed History Limitations: Reports: No Limitations - History of Present Illness INITIAL COMMENTS - FREE TEXT/NARRATIVE: 57-year-old female presents to the emergency department today with complaint of pain in her great toe as well as her shoulder on the right side. She injured herself while going down the steps she missed the last 4 steps fell at which time her great toe curled under her foot and her right shoulder then hit the side of the wall and she guided herself to the ground. 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: Musculoskeletal History: Reports: Arthritis Other Musculoskeletal History: left knee needs total replacement Psychiatric History: Reports: Anxiety, Depression - Infectious Disease History Infectious Disease History: Reports: Chicken Pox, Measles, Mumps, Rubella, Shingles - Past Surgical History Head Surgeries/Procedures: Reports: None HEENT Surgical History: Reports: None Cardiovascular Surgical History: Reports: None Respiratory Surgical History: Reports: None GI Surgical History: Reports: None Female Surgical History: Reports: Hysterectomy, Salpingo-Oophorectomy Endocrine Surgical History: Reports: None Neurological Surgical History: Reports: None Musculoskeletal Surgical History: Reports: Knee Replacement, Other (See Below) Other Musculoskeletal Surgeries/Procedures:: left knee replacement. right toe surgery Oncologic Surgical History: Reports: None Dermatological Surgical History: Reports: None Social & Family History - Tobacco Use Smoking Status *Q: Current Every Day Smoker Years of Tobacco use: 13 Packs/Tins Daily: 0.5 - Caffeine Use Caffeine Use: Reports: Soda - Recreational Drug Use Recreational Drug Use: No Review of Systems - Review of Systems Review Of Systems: See Below Constitutional: Reports: No Symptoms Musculoskeletal: Reports: Shoulder Pain, Foot Pain Skin: Reports: No Symptoms Neurological: Reports: No Symptoms ED EXAM, GENERAL - Physical Exam Exam: See Below Free Text/Narrative:: Examination of the right foot I don't appreciate any erythema there is no edema noted she is tender over the metacarpal area MCP joint of the great toe pedal pulse is +2 she has full range of motion all digits sensation is intact examination of the shoulder she is point tender the area superior scapula she has limited range of motion secondary to pain I don't appreciate any erythema there is no edema noted clavicle appears to be intact radial pulse is +2, Course - Vital Signs Last Recorded V/S: Last Vital Signs Temp 97.0 F 11/09/17 07:36 Pulse 83 11/09/17 07:36 Resp 16 11/09/17 07:36 BP 144/77 H 11/09/17 07:36 Pulse Ox 96 11/09/17 07:36 - Orders/Labs/Meds Orders: Active Orders 24 hr Category Date Time Status Shoulder Comp Rt [CR] Stat Exams 11/09/17 07:48 Taken Toes Great Toe Rt T5 [CR] Stat Exams 11/09/17 07:48 Taken Meds: Medications Discontinued Medications Generic Name Dose Route Start Last Admin Trade Name Freq PRN Reason Stop Dose Admin Fentanyl 50 mcg 11/09/17 07:48 11/09/17 08:26 Sublimaze IM 11/09/17 07:49 50 mcg ONETIME ONE Administration Departure - Departure Time of Disposition: 08:40 Disposition: Home, Self-Care 01 Condition: Good Clinical Impression: Sprain of right great toe Qualifiers: Encounter type: initial encounter Qualified Code(s): S93.501A - Unspecified sprain of right great toe, initial encounter Contusion of right shoulder Qualifiers: Encounter type: initial encounter Qualified Code(s): S40.011A - Contusion of right shoulder, initial encounter - Discharge Information Referrals: PCP,None [Primary Care Provider] - Forms: ED Department Discharge Additional Instructions: Use ibuprofen for baseline pain control, use hydrocodone as needed for breakthrough pain, please follow-up with your signal helper next week, call or return to the emergency department with worsening of symptoms - My Orders Last 24 Hours: My Active Orders 11/09/17 07:48 Shoulder Comp Rt [CR] Stat Toes Great Toe Rt T5 [CR] Stat - Assessment/Plan Last 24 Hours: My Active Orders 11/09/17 07:48 Shoulder Comp Rt [CR] Stat Toes Great Toe Rt T5 [CR] Stat Plan: Assessment Acuity = acute Site and laterality = sprain great toe right foot, contusion right shoulder Etiology = secondary to a fall Manifestations = none Location of injury = Home Lab values = x-ray toe and shoulder I did review films myself I cannot appreciate any acute process, the official read from radiology is pending Plan She had good relief with the fentanyl provided in the emergency department I did review with her the films she's got follow-up with her signal helper on Saturday , hydrocodone 5/325 one tab by mouth 3 times a day when necessary total #10 This note was dictated using [employer] voice recognition software please call with any questions on syntax or grammar.
--- NOTE | 2017-11-11 09:08 | CR ---
Shoulder Comp Rt CLINICAL HISTORY: Pain FINDINGS: There is no acute fracture or dislocation in the right shoulder. There is mild deformity th e proximal humerus. This may be from old healed injury. Articular surfaces are smooth. Impression: No acute fracture or dislocation
--- NOTE | 2017-11-11 09:11 | CR ---
Toes Great Toe Rt T5 CLINICAL HISTORY: Pain FINDINGS: There is moderate osteoarthritic change at the first MTP joint. There is some deformity of the medial sesamoid. This could be degenerative or due to fracture. Chronology is uncertain IMPRESSION: Medial sesamoid deformity. The acute fracture is not excluded Osteoarthritic change at the first MTP joint
== END 2017-11-09 09:10 | disposition home or self-care (01) ==
LOC: JP.ED 07:18
DX: S93.501A Unspecified sprain of right great toe, initial encounter (principal); S40.011A Contusion of right shoulder, initial encounter; Z88.8 Allergy status to other drugs, medicaments and biological substances; F17.210 Nicotine dependence, cigarettes, uncomplicated; W10.9XXA Fall (on) (from) unspecified stairs and steps, initial encounter
CPT/HCPCS: 73030; 73660; 96372; 99284; J3010

== ENCOUNTER 2018-01-10 15:18 | Emergency (ER) | payer SELFPAY ==
[2018-01-10 15:33] VITALS: BP 114/71
--- NOTE | 2018-01-10 15:55 | EDM.PDOC ---
ED HPI GENERAL MEDICAL PROBLEM - General Chief Complaint: Lower Extremity Injury/Pain Stated Complaint: LEFT KNEE PAIN Time Seen by Provider: 01/10/18 15:55 - History of Present Illness INITIAL COMMENTS - FREE TEXT/NARRATIVE: Vonda presents today for complaints of worsening left knee pain and feels unsteady at times. She states she has had knee pain for a few days that is making it difficult to work and stand for 10 hours. She states she has been taking ibuprofen 600mg and acetaminophen for pain without improvement. She reports she has been using a knee brace to help with pain. 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, Musculoskeletal History: Reports: Arthritis Other Musculoskeletal History: left knee total replacement Neurological History: Reports: None Psychiatric History: Reports: Anxiety, Depression Endocrine/Metabolic History: Reports: None Hematologic History: Reports: None Immunologic History: Reports: None Oncologic (Cancer) History: Reports: None Dermatologic History: Reports: None - Infectious Disease History Infectious Disease History: Reports: Chicken Pox, Measles, Mumps, Shingles - Past Surgical History Head Surgeries/Procedures: Reports: None HEENT Surgical History: Reports: None Cardiovascular Surgical History: Reports: None Respiratory Surgical History: Reports: None GI Surgical History: Reports: Appendectomy Female Surgical History: Reports: Hysterectomy, Salpingo-Oophorectomy Endocrine Surgical History: Reports: None Neurological Surgical History: Reports: None Musculoskeletal Surgical History: Reports: Carpal Tunnel, Knee Replacement, Other (See Below) Other Musculoskeletal Surgeries/Procedures:: left knee replacement. right toe surgery Oncologic Surgical History: Reports: Biopsy of Breast Dermatological Surgical History: Reports: None Social & Family History - Tobacco Use Smoking Status *Q: Current Every Day Smoker Years of Tobacco use: 12 Packs/Tins Daily: 0.5 Used Tobacco, but Quit: No Second Hand Smoke Exposure: No - Caffeine Use Caffeine Use: Reports: Soda - Recreational Drug Use Recreational Drug Use: No Review of Systems - Review of Systems Review Of Systems: See Below Constitutional: Reports: No Symptoms Respiratory: Reports: No Symptoms Cardiovascular: Reports: No Symptoms Musculoskeletal: Reports: Other (Left knee pain for several days with swelling and feeling of unsteadiness/weakness) Skin: Reports: No Symptoms Neurological: Reports: No Symptoms Psychiatric: Reports: No Symptoms ED EXAM, GENERAL - Physical Exam Exam: See Below Free Text/Narrative:: Vonda is an alert and oriented 57 year old female presenting with complaints of left knee pain and unsteadiness. She has a history of left total knee replacement. She denies trauma or injury to the knee. Exam Limited By: No Limitations General Appearance: Alert, WD/WN, No Apparent Distress Eye Exam: Bilateral Eye: Normal Inspection, PERRL Head: Atraumatic, Normocephalic Respiratory/Chest: No Respiratory Distress, Lungs Clear, Normal Breath Sounds, No Accessory Muscle Use, Chest Non-Tender Cardiovascular: Normal Peripheral Pulses, Regular Rate, Rhythm, No Edema, No Murmur, No Rub Peripheral Pulses: 2+: Radial (L), Radial (R), Dorsalis Pedis (L), Dorsalis Pedis (R) Back Exam: Normal Inspection, Full Range of Motion. No: CVA Tenderness (R), CVA Tenderness (L) Extremities: Normal Inspection, No Pedal Edema, Normal Capillary Refill, Increased Warmth, Other (noted slight increase in warmth to the left knee. Pain with flexion to the left knee. No crepitus with ROM). No: Joint Swelling Neurological: Alert, Oriented, Normal Cognition, No Motor/Sensory Deficits Psychiatric: Normal Affect, Normal Mood Skin Exam: Warm, Dry, Intact, Normal Color, No Rash Lymphatic: No Adenopathy Course - Vital Signs Last Recorded V/S: Last Vital Signs Temp 36.7 C 01/10/18 15:34 Pulse 94 01/10/18 15:34 Resp 18 01/10/18 15:34 BP 114/71 01/10/18 15:34 Pulse Ox 99 01/10/18 15:34 - Orders/Labs/Meds Orders: Active Orders 24 hr Category Date Time Status Knee 1V or 2V Lt [CR] Stat Exams 01/10/18 16:13 Taken Labs: Laboratory Tests 01/10/18 01/10/18 Range/Units 16:13 16:13 WBC 10.2 (4.5-11.0) K/uL RBC 4.34 (3.30-5.50) M/uL Hgb 13.8 (12.0-15.0) g/dL Hct 41.4 (36.0-48.0) % MCV 95 (80-98) fL MCH 32 H (27-31) pg MCHC 33 (32-36) % Plt Count 312 (150-400) K/uL Neut % (Auto) 66 (36-66) % Lymph % (Auto) 28 (24-44) % [place] % (Auto) 6 (2-6) % Eos % (Auto) 0 L (2-4) % Baso % (Auto) 0 (0-1) % Uric Acid 4.9 (2.6-6.2) mg/dL Lab work reviewed. Meds: Medications Discontinued Medications Generic Name Dose Route Start Last Admin Trade Name Chuyq PRN Reason Stop Dose Admin Hydrocodone Bitart/Acetaminophen 1 tab 01/10/18 16:13 01/10/18 16:24 [place] 325-5 Mg PO 01/10/18 16:14 1 tab ONETIME ONE Administration Ketorolac Tromethamine 60 mg 01/10/18 16:13 01/10/18 16:25 Toradol IM 01/10/18 16:14 60 mg ONETIME ONE Administration - Radiology Interpretation Free Text/Narrative:: Left knee x-ray wet read, reviewed, no acute findings. noted. Radiologist read pending. Departure - Departure Time of Disposition: 17:09 Disposition: Home, Self-Care 01 Condition: Good Clinical Impression: Knee pain, Strain of left knee - Discharge Information *PRESCRIPTION DRUG MONITORING PROGRAM REVIEWED*: Yes *COPY OF PRESCRIPTION DRUG MONITORING REPORT IN PATIENT FABIAN: Yes Instructions: Knee Pain, Adult, [id number] Referrals: PCP,None [Primary Care Provider] - Forms: ED Department Discharge Additional Instructions: You have been evaluated and treated for left knee pain. It would be best for you to rest, ice, elevate and compress the knee. Wear your knee brace when up and at work. You can take ibuprofen and acetaminophen as directed for pain. Use of hydrocodone 5/325mg as needed three times a day for pain. Follow up with [facility] as scheduled on Saturday at 0900. - My Orders Last 24 Hours: My Active Orders 01/10/18 16:13 Knee 1V or 2V Lt [CR] Stat - Assessment/Plan Last 24 Hours: My Active Orders 01/10/18 16:13 Knee 1V or 2V Lt [CR] Stat Assessment:: Left knee pain Left knee strain Plan: Patient evaluated and treated for left knee pain. Rest, ice, elevate and compress the knee. Wear knee brace when up and at work. Take ibuprofen and acetaminophen as directed for pain. Use of hydrocodone 5/325mg as needed three times a day for pain. Follow up with [facility] as scheduled on Saturday at 0900.
[2018-01-10] MEDS ORDERED: Acetaminophen/HYDROcodone 325-5 MG Tab PO ONE (16:13)
[2018-01-10] MEDS ORDERED: Ketorolac 60 MG/2 ML SDV IM ONE (16:13)
--- NOTE | 2018-01-13 08:33 | CR ---
Knee 1V or 2V Lt CLINICAL HISTORY: Left knee pain FINDINGS: No acute fracture or dislocation is noted. There are no osseous lesions. Patient has a 3 co mponent total knee arthroplasty. Components appear intact and well seated. Impression: Total knee arthroplasty appears intact
== END 2018-01-10 17:28 | disposition home or self-care (01) ==
LOC: JP.ED 15:18
DX: S86.912A Strain of unspecified muscle(s) and tendon(s) at lower leg level, left leg, initial encounter (principal); Z88.8 Allergy status to other drugs, medicaments and biological substances; F17.210 Nicotine dependence, cigarettes, uncomplicated; X58.XXXA Exposure to other specified factors, initial encounter
CPT/HCPCS: 36415; 73560; 84550; 85025; 96372; 99284; A9270; J1885

== ENCOUNTER 2018-05-09 15:51 | Emergency (ER) | payer SELFPAY ==
[2018-05-09 16:10] VITALS: BP 144/92
[2018-05-09] MEDS ORDERED: Ketorolac 30 MG/ML SDV IVPUSH ONE (16:21)
[2018-05-09] MEDS ORDERED: Lactated Ringers 1,000 ML IV ONE (16:22)
[2018-05-09] MEDS ORDERED: diphenhydrAMINE 50 MG/ML SDV IVPUSH ONE (16:22)
[2018-05-09] MEDS ORDERED: Sodium Chloride 0.9% 10 ML Syringe FLUSH PRN (16:22)
[2018-05-09] MEDS ORDERED: Prochlorperazine 10 MG/2 ML SDV IVPUSH ONE (16:22)
--- NOTE | 2018-05-09 16:32 | EDM.PDOC ---
ED HPI GENERAL MEDICAL PROBLEM - General Chief Complaint: Headache Stated Complaint: MIGRAINE Time Seen by Provider: 05/09/18 16:18 Source of Information: Reports: Patient, RN Notes Reviewed History Limitations: Reports: No Limitations - History of Present Illness INITIAL COMMENTS - FREE TEXT/NARRATIVE: 58-year-old female presents emergency department day complaint of migraine headache, she states this headache is typical for her she usually gets 1 about every 3 months this would has been ongoing for the last 2 days she does have nausea with photophobia Frontal Headache Pain Score (Numeric/FACES): 9 - Related Data Allergies Allergy/AdvReac Type Severity Reaction Status Date / Time naproxen Allergy Rash Verified 04/20/18 10:55 Home Meds: Home Meds QUEtiapine [SEROquel XR] 50 mg PO BEDTIME 11/17/16 [History] Venlafaxine [Effexor] 37.5 mg PO BID 01/10/18 [History] Ondansetron [Zofran ODT] 4 mg PO Q4H PRN #12 tab.dis 02/19/18 [Rx] Pantoprazole [ProTONIX] 40 mg PO BIDAC #60 tab.cr 02/19/18 [Rx] Past Medical History HEENT History: Reports: Impaired Vision 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, Musculoskeletal History: Reports: Arthritis Other Musculoskeletal History: left knee total replacement Psychiatric History: Reports: Anxiety, Depression - Infectious Disease History Infectious Disease History: Reports: Chicken Pox - Past Surgical History Head Surgeries/Procedures: Reports: None HEENT Surgical History: Reports: None Cardiovascular Surgical History: Reports: None Respiratory Surgical History: Reports: None GI Surgical History: Reports: Appendectomy Female Surgical History: Reports: Hysterectomy, Salpingo-Oophorectomy Endocrine Surgical History: Reports: None Neurological Surgical History: Reports: None Musculoskeletal Surgical History: Reports: Carpal Tunnel, Knee Replacement, Other (See Below) Other Musculoskeletal Surgeries/Procedures:: left knee replacement. right toe surgery Oncologic Surgical History: Reports: Biopsy of Breast Dermatological Surgical History: Reports: None Social & Family History - Family History Cardiac: Reports: [place] - Tobacco Use Smoking Status *Q: Current Every Day Smoker Years of Tobacco use: 15 Packs/Tins Daily: 0.5 - Caffeine Use Caffeine Use: Reports: Soda - Recreational Drug Use Recreational Drug Use: No ED ROS GENERAL - Review of Systems Review Of Systems: See Below Constitutional: Reports: No Symptoms HEENT: Reports: Other (Photophobia and phonophobia) Respiratory: Reports: No Symptoms Cardiovascular: Reports: No Symptoms GI/Abdominal: Reports: Nausea Neurological: Reports: Headache - Physical Exam Exam: See Below Exam Limited By: No Limitations General Appearance: Alert, WD/WN, No Apparent Distress Eye Exam: Bilateral Eye: EOMI, Normal Fundi, PERRL Respiratory/Chest: No Respiratory Distress Course - Vital Signs Last Recorded V/S: Last Vital Signs Temp 96.1 F 05/09/18 16:10 Pulse 82 05/09/18 16:10 Resp 16 05/09/18 16:10 BP 144/92 H 05/09/18 16:10 Pulse Ox 97 05/09/18 16:10 - Orders/Labs/Meds Orders: Active Orders 24 hr Category Date Time Status Peripheral IV Care [RC] . DIRECTED Care 05/09/18 16:22 Active Sodium Chloride 0.9% [Saline Flush] Med 05/09/18 16:22 Active 10 ml FLUSH ASDIRECTED PRN Peripheral IV Insertion Adult [OM.PC] Urgent Oth 05/09/18 16:21 Ordered Medication Orders Sodium Chloride (Saline Flush) 10 ml FLUSH ASDIRECTED PRN PRN Reason: Keep Vein Open Last Admin: 05/09/18 16:39 Dose: 10 ml Meds: Medications Generic Name Dose Route Start Last Admin Trade Name Freq PRN Reason Stop Dose Admin Sodium Chloride 10 ml 05/09/18 16:22 05/09/18 16:39 Saline Flush FLUSH 10 ml ASDIRECTED PRN Administration Keep Vein Open Discontinued Medications Generic Name Dose Route Start Last Admin Trade Name Freq PRN Reason Stop Dose Admin Dexamethasone 4 mg 05/09/18 17:15 05/09/18 17:30 Dexamethasone IVPUSH 05/09/18 17:16 4 mg ONETIME ONE Administration Diphenhydramine HCl 50 mg 05/09/18 16:22 05/09/18 16:35 Benadryl IVPUSH 05/09/18 16:23 50 mg ONETIME ONE Administration Haloperidol Lactate 5 mg 05/09/18 17:15 05/09/18 17:33 Haldol IVPUSH 05/09/18 17:16 5 mg ONETIME ONE Administration Lactated Ringer's 1,000 mls @ 999 mls/hr 05/09/18 16:22 05/09/18 16:33 Ringers, Lactated IV 05/09/18 17:22 999 mls/hr BOLUS ONE Administration Ketorolac Tromethamine 30 mg 05/09/18 16:21 05/09/18 16:37 Toradol IVPUSH 05/09/18 16:22 30 mg ONETIME ONE Administration Prochlorperazine Edisylate 5 mg 05/09/18 16:22 05/09/18 16:34 Compazine IVPUSH 05/09/18 16:23 5 mg ONETIME ONE Administration Departure - Departure Time of Disposition: 17:49 Disposition: Home, Self-Care 01 Condition: Fair Clinical Impression: Migraine, Chronic dental pain - Discharge Information Referrals: Familia Lomax MD [Primary Care Provider] - Forms: ED Department Discharge Additional Instructions: Use ibuprofen for baseline pain control, use hydrocodone for breakthrough pain, please report to the dental clinic May 13 at 8:15 in the morning for further evaluation - My Orders Last 24 Hours: My Active Orders 05/09/18 16:21 Peripheral IV Insertion Adult [OM.PC] Urgent 05/09/18 16:22 Peripheral IV Care [RC] . DIRECTED Sodium Chloride 0.9% [Saline Flush] 10 ml FLUSH ASDIRECTED PRN - Assessment/Plan Last 24 Hours: My Active Orders 05/09/18 16:21 Peripheral IV Insertion Adult [OM.PC] Urgent 05/09/18 16:22 Peripheral IV Care [RC] . DIRECTED Sodium Chloride 0.9% [Saline Flush] 10 ml FLUSH ASDIRECTED PRN Plan: Assessment Acuity = acute Site and laterality = migraine type headache complicated patient with poor dentition Etiology = unknown etiology Manifestations = none Location of injury = Home Lab values = none] Plan She had good relief of the migraine combination Toradol, Compazine, Haldol, Benadryl and dexamethasone, for the dentition referral set up to the dental clinic she was provided hydrocodone 5/325 one tab by mouth 3 times a day when necessary total #10 she will report to the dental clinic on May 13 at 8:15 in the morning This note was dictated using [employer] voice recognition software please call with any questions on syntax or grammar.
[2018-05-09] MEDS ORDERED: Haloperidol Lactate 5 MG/ML SDV IVPUSH ONE (17:15)
[2018-05-09] MEDS ORDERED: Dexamethasone 4 MG/ML SDV IVPUSH ONE (17:15)
== END 2018-05-09 18:18 | disposition home or self-care (01) ==
LOC: JP.ED 15:51
DX: G43.909 Migraine, unspecified, not intractable, without status migrainosus (principal); K08.89 Other specified disorders of teeth and supporting structures; F17.210 Nicotine dependence, cigarettes, uncomplicated; Z88.8 Allergy status to other drugs, medicaments and biological substances
CPT/HCPCS: 96361; 96374; 96375; 99283; J0780; J1100; J1200; J1630; J1885; J7120

== ENCOUNTER 2018-05-17 11:06 | Emergency (ER) | payer SELFPAY ==
[2018-05-17 11:16] VITALS: BP 124/88
--- NOTE | 2018-05-17 12:20 | EDM.PDOC ---
ED HPI GENERAL MEDICAL PROBLEM - General Chief Complaint: ENT Problem Stated Complaint: CHEST PAIN,HEADACHE Time Seen by Provider: 05/17/18 12:21 Source of Information: Reports: Patient History Limitations: Reports: No Limitations - History of Present Illness INITIAL COMMENTS - FREE TEXT/NARRATIVE: This patient comes in for dental pain. She's had a lot of problems with her teeth she was referred to the [facility] recently. She said she went in there they wouldn't even take a look at her. She has an appointment in [place] on June 11. She said she does get dental care because she doesn't have any insurance. - Related Data Allergies Allergy/AdvReac Type Severity Reaction Status Date / Time naproxen Allergy Rash Verified 05/17/18 11:18 Home Meds: Home Meds QUEtiapine [SEROquel XR] 50 mg PO BEDTIME 11/17/16 [History] Venlafaxine [Effexor] 37.5 mg PO BID 01/10/18 [History] Ondansetron [Zofran ODT] 4 mg PO Q4H PRN #12 tab.dis 02/19/18 [Rx] Pantoprazole [ProTONIX] 40 mg PO BIDAC #60 tab.cr 02/19/18 [Rx] Past Medical History HEENT History: Reports: Impaired Vision Cardiovascular History: Reports: None Respiratory History: Reports: None Gastrointestinal History: Reports: None Genitourinary History: Reports: None 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, Musculoskeletal History: Reports: 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 Other Musculoskeletal History: left knee total replacement Neurological History: Reports: None Psychiatric History: Reports: Anxiety, Depression Endocrine/Metabolic History: Reports: None Hematologic History: Reports: None Immunologic History: Reports: None Oncologic (Cancer) History: Reports: None Dermatologic History: Reports: None - Infectious Disease History Infectious Disease History: Reports: Chicken Pox - Past Surgical History Head Surgeries/Procedures: Reports: None HEENT Surgical History: Reports: None Cardiovascular Surgical History: Reports: None Respiratory Surgical History: Reports: None GI Surgical History: Reports: Appendectomy Female Surgical History: Reports: Hysterectomy, Salpingo-Oophorectomy Endocrine Surgical History: Reports: None Neurological Surgical History: Reports: None Musculoskeletal Surgical History: Reports: Carpal Tunnel, Knee Replacement, Other (See Below) Other Musculoskeletal Surgeries/Procedures:: left knee replacement. right toe surgery Oncologic Surgical History: Reports: Biopsy of Breast Dermatological Surgical History: Reports: None Social & Family History - Family History Cardiac: Reports: [place] - Tobacco Use Smoking Status *Q: Current Every Day Smoker Years of Tobacco use: 25 Packs/Tins Daily: 0.1 - Caffeine Use Caffeine Use: Reports: Soda ED ROS ENT - Review of Systems Review Of Systems: ROS reveals no pertinent complaints other than HPI. ED EXAM, ENT - Physical Exam Exam: See Below Exam Limited By: No Limitations General Appearance: Alert, Mild Distress Mouth/Throat: Other (She has upper dentures. The only teeth left in her mouth or about 4 or 5 of the lower incisors and adjacent teeth. Several or rotten off to the gumline the others are just severely carious and I would expect them to break off at any time. There is gingivitis but there is no abscess.) Course - Vital Signs Last Recorded V/S: Last Vital Signs Temp 36.8 C 05/17/18 11:23 Pulse 107 H 05/17/18 11:23 Resp 16 05/17/18 11:23 BP 124/88 05/17/18 11:23 Pulse Ox 98 05/17/18 11:23 Departure - Departure Time of Disposition: 12:13 Disposition: Home, Self-Care 01 Condition: Fair Clinical Impression: Dental caries - Discharge Information Referrals: Familia Lomax MD [Primary Care Provider] - Forms: ED Department Discharge Additional Instructions: Restart taking your own clindamycin. Use [place] 5/325 (#20) one or 2 every 4 hours as needed for pain. This medication can cause sedation and impair driving in lead to addiction. Follow-up with the dentist as planned
== END 2018-05-17 12:35 | disposition home or self-care (01) ==
LOC: JP.ED 11:06
DX: K02.9 Dental caries, unspecified (principal); F17.210 Nicotine dependence, cigarettes, uncomplicated; Z88.8 Allergy status to other drugs, medicaments and biological substances; Z79.899 Other long term (current) drug therapy
CPT/HCPCS: 99283

== ENCOUNTER 2018-07-05 15:12 | Emergency (ER) | payer SELFPAY ==
[2018-07-05 15:43] VITALS: BP 115/71
--- NOTE | 2018-07-05 16:27 | EDM.PDOC ---
ED HPI GENERAL MEDICAL PROBLEM - General Chief Complaint: Lower Extremity Injury/Pain Stated Complaint: KNEE HURTS NOT AN ACCIDENT Time Seen by Provider: 07/05/18 16:00 Source of Information: Reports: Patient History Limitations: Reports: No Limitations - History of Present Illness INITIAL COMMENTS - FREE TEXT/NARRATIVE: 58-year-old female with right knee pain for the past 6 months, worsening especially after standing for prolonged periods. She has been followed by her primary provider and has a bone scan scheduled for 2 weeks. She had a total knee replacement in the left knee 2 years ago and was real good for one year. She has not contacted her orthopedic surgeon. Onset: Gradual Duration: Week(s): (Pain has been ongoing for weeks but has markedly worsened over the past several days) Location: Reports: Lower Extremity, Left Associated Symptoms: Reports: No Other Symptoms. 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, Musculoskeletal History: Reports: 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 Other Musculoskeletal History: left knee total replacement Neurological History: Reports: None Psychiatric History: Reports: Anxiety, Depression Endocrine/Metabolic History: Reports: None Hematologic History: Reports: None Immunologic History: Reports: None Oncologic (Cancer) History: Reports: None Dermatologic History: Reports: None - Infectious Disease History Infectious Disease History: Reports: Chicken Pox - Past Surgical History Head Surgeries/Procedures: Reports: None HEENT Surgical History: Reports: None Cardiovascular Surgical History: Reports: None Respiratory Surgical History: Reports: None GI Surgical History: Reports: Appendectomy Female Surgical History: Reports: Hysterectomy, Salpingo-Oophorectomy Endocrine Surgical History: Reports: None Neurological Surgical History: Reports: None Musculoskeletal Surgical History: Reports: Carpal Tunnel, Knee Replacement, Other (See Below) Other Musculoskeletal Surgeries/Procedures:: left knee replacement. right toe surgery Oncologic Surgical History: Reports: Biopsy of Breast Dermatological Surgical History: Reports: None Social & Family History - Family History Cardiac: Reports: [place] - Tobacco Use Smoking Status *Q: Current Every Day Smoker Years of Tobacco use: 40 Packs/Tins Daily: 1 - Caffeine Use Caffeine Use: Reports: Coffee, Soda Review of Systems - Review of Systems Review Of Systems: See Below Constitutional: Denies: Fever Respiratory: Denies: Shortness of Breath Cardiovascular: Denies: Chest Pain GI/Abdominal: Denies: Abdominal Pain Musculoskeletal: Reports: Other (Left knee pain) Skin: Denies: Erythema Neurological: Denies: Paresthesia ED EXAM, GENERAL - Physical Exam Exam: See Below Exam Limited By: No Limitations General Appearance: Alert, No Apparent Distress Respiratory/Chest: No Respiratory Distress Cardiovascular: Normal Peripheral Pulses GI/Abdominal: Non-Tender Extremities: Other (Exam is otherwise limited to the left lower extremity. There is a well-healed longitudinal scar over the knee. No significant effusion , she is tender over the lateral collateral ligament and has pain with varus stress.) Course - Vital Signs Last Recorded V/S: Last Vital Signs Temp 97.1 F 07/05/18 15:38 Pulse 90 07/05/18 15:38 Resp 16 07/05/18 15:38 BP 115/71 07/05/18 15:38 Pulse Ox 97 07/05/18 15:38 - Re-Assessments/Exams Free Text/Narrative Re-Assessment/Exam: 07/05/18 17:11 Patient was given 18 Vicodin for extra pain control pending her bone scan. I also gave her a note to be off work until she can discuss this with her orthopedic surgeon. Departure - Departure Time of Disposition: 16:28 Disposition: Home, Self-Care 01 Condition: Good Clinical Impression: Knee pain, left Qualifiers: Chronicity: acute Qualified Code(s): M25.562 - Pain in left knee - Discharge Information Instructions: Knee Pain, Adult Referrals: Familia Lomax MD [Primary Care Provider] - Forms: ED Department Discharge Care Plan Goals: Continue current medications and add [place] as prescribed for extra pain control. Avoid prolonged standing for the next 3-4 days and contact your orthopedic provider for more instructions and advice.
== END 2018-07-05 16:32 | disposition home or self-care (01) ==
LOC: JP.ED 15:12
DX: M25.562 Pain in left knee (principal); F17.210 Nicotine dependence, cigarettes, uncomplicated; F41.9 Anxiety disorder, unspecified; F32.9 Major depressive disorder, single episode, unspecified; Z88.8 Allergy status to other drugs, medicaments and biological substances
CPT/HCPCS: 99283

== ENCOUNTER 2018-08-02 15:07 | Emergency (ER) | payer SELFPAY ==
[2018-08-02 15:30] VITALS: BP 144/91
[2018-08-02] MEDS ORDERED: Ketorolac 60 MG/2 ML SDV IM ONE (15:33)
--- NOTE | 2018-08-02 15:37 | EDM.PDOC ---
ED HPI GENERAL MEDICAL PROBLEM - General Chief Complaint: Lower Extremity Injury/Pain Stated Complaint: LEFT KNEE AND BACK PAIN Time Seen by Provider: 08/02/18 15:31 Source of Information: Reports: Patient, RN Notes Reviewed History Limitations: Reports: No Limitations - History of Present Illness INITIAL COMMENTS - FREE TEXT/NARRATIVE: 58-year-old female presents emergency department today with complaint of left knee pain, she injured herself at work earlier today when she lost her footing on the wet floor ended up having a twisting injury in her left knee now is experiencing pain on the inside of her knee Left Knee Pain Score (Numeric/FACES): 8 - Related Data Allergies Allergy/AdvReac Type Severity Reaction Status Date / Time naproxen Allergy Rash Verified 08/02/18 15:18 Home Meds: Home Meds QUEtiapine [SEROquel XR] 50 mg PO BEDTIME 11/17/16 [History] Venlafaxine [Effexor] 37.5 mg PO BID 01/10/18 [History] Past Medical History HEENT History: Reports: Impaired Vision 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 right toe surgery Social & Family History - Family History Cardiac: Reports: [place] - Tobacco Use Smoking Status *Q: Current Every Day Smoker Years of Tobacco use: 16 Packs/Tins Daily: 0.2 Used Tobacco, but Quit: No Second Hand Smoke Exposure: Yes - Caffeine Use Caffeine Use: Reports: Soda - Recreational Drug Use Recreational Drug Use: No Review of Systems - Review of Systems Review Of Systems: See Below Musculoskeletal: Reports: Joint Pain (Left knee pain) Skin: Reports: No Symptoms ED EXAM, GENERAL - Physical Exam Exam: See Below Free Text/Narrative:: Examination of left knee I don't appreciate any erythema there is no edema noted she is tender along the medial joint line she does have a midline surgical scar will not tolerate any further exam Exam Limited By: No Limitations General Appearance: Alert, Mild Distress Respiratory/Chest: No Respiratory Distress Course - Vital Signs Last Recorded V/S: Last Vital Signs Temp 97.8 F 08/02/18 15:25 Pulse 108 H 08/02/18 15:25 Resp 18 08/02/18 15:25 BP 144/91 H 08/02/18 15:25 Pulse Ox 100 08/02/18 15:25 - Orders/Labs/Meds Meds: Medications Discontinued Medications Generic Name Dose Route Start Last Admin Trade Name Christa PRN Reason Stop Dose Admin Ketorolac Tromethamine 60 mg 08/02/18 15:33 08/02/18 15:55 Toradol IM 08/02/18 15:34 60 mg ONETIME ONE Administration Departure - Departure Time of Disposition: 16:31 Disposition: Home, Self-Care 01 Condition: Fair Clinical Impression: Left knee sprain Qualifiers: Encounter type: initial encounter Involved ligament of knee: unspecified ligament Qualified Code(s): S83.92XA - Sprain of unspecified site of left knee, initial encounter - Discharge Information Referrals: Familia Lomax MD [Primary Care Provider] - Forms: ED Department Discharge, ED Return to Work/School Form Additional Instructions: Continue to use her crutches and knee brace as needed home, use ibuprofen for baseline pain control use hydrocodone for breakthrough pain, please follow-up with your primary care next week if no improvement - Assessment/Plan Plan: Assessment Acuity = acute Site and laterality = left knee sprain Etiology = secondary to twisting injury on what floor Manifestations = pain Location of injury = work Lab values = knee x-ray shows no fracture hardware intact Plan I did review x-ray with her, prescription written for hydrocodone 5/325 one tablet by mouth every 4-6 hours when necessary total #6 work note also written for follow-up with primary care on Saturday if no improvement she is going to use an Darron wrap and crutches that she already has This note was dictated using [employer] voice recognition software please call with any questions on syntax or grammar.
--- NOTE | 2018-08-02 16:04 | CRLCR ---
HISTORY: Medial left knee pain. Twisting injury. TECHNIQUE: Three views of the left knee. COMPARISON: 05/21/2018. FINDINGS: Left total knee arthroplasty with patellar resurfacing procedure. The components appear intact and appropriately seated. There is no periprosthetic fracture or evidence of hardware loosening. IMPRESSION: 1. Intact left total knee arthroplasty with patellar resurfacing procedure. 2. No periprosthetic fracture or evidence of hardware loosening. Dictated by Javier Delvalle MD @ 08/02/2018 4:02:29 PM Dictated by: Javier Delvalle MD @ 08/02/2018 16:02:32 (Electronically Signed)
== END 2018-08-02 16:41 | disposition home or self-care (01) ==
LOC: JP.ED 15:07
DX: S83.92XA Sprain of unspecified site of left knee, initial encounter (principal); Z88.8 Allergy status to other drugs, medicaments and biological substances; F17.210 Nicotine dependence, cigarettes, uncomplicated; X50.1XXA Overexertion from prolonged static or awkward postures, initial encounter
CPT/HCPCS: 73562; 96372; 99283; J1885

== ENCOUNTER 2018-08-13 15:22 | Emergency (ER) | payer SELFPAY ==
[2018-08-13 15:42] VITALS: BP 126/75
--- NOTE | 2018-08-13 16:43 | EDM.PDOC ---
ED HPI GENERAL MEDICAL PROBLEM - General Chief Complaint: ENT Problem Stated Complaint: TOOTHACHE LEFT BOTTOM Time Seen by Provider: 08/13/18 15:50 Source of Information: Reports: Patient History Limitations: Reports: No Limitations - History of Present Illness INITIAL COMMENTS - FREE TEXT/NARRATIVE: 58-year-old female with ongoing dental pain. She called for tenderness in the last several days, she needs to come up with $300 co-pay and she can get in next week to a local dentist. No fevers or chills but increased pain in the left mandible. She is taking clindamycin. 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 right toe surgery Social & Family History - Family History Cardiac: Reports: [place] - Tobacco Use Smoking Status *Q: Former Smoker Used Tobacco, but Quit: Yes Month/Year Tobacco Last Used: 06/2018 Second Hand Smoke Exposure: Yes - Caffeine Use Caffeine Use: Reports: Soda - Recreational Drug Use Recreational Drug Use: No ED ROS ENT - Review of Systems Review Of Systems: See Below Constitutional: Denies: Fever HEENT: Reports: Dental Pain Respiratory: Denies: Shortness of Breath GI/Abdominal: Denies: Nausea, Vomiting ED EXAM, ENT - Physical Exam Exam: See Below Exam Limited By: No Limitations General Appearance: Alert, Mild Distress Mouth/Throat: Other (Only 5 teeth remaining all in the mandible including canines and incisors. 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 Patient was given 10 hydrocodone to use with anti- inflammatories to use sparingly. Departure - Departure Time of Disposition: 16:47 Disposition: Home, Self-Care 01 Clinical Impression: Chronic dental pain - Discharge Information Instructions: Pain Medicine Instructions, [id number] Referrals: Familia Lomax MD [Primary Care Provider] - Forms: ED Department Discharge Care Plan Goals: Take a regular dose of naproxen or ibuprofen, and add hydrocodone as needed for extra pain control. This needs to be taking care of as no more narcotics can be prescribed through the emergency room.
== END 2018-08-13 16:47 | disposition home or self-care (01) ==
LOC: JP.ED 15:22
DX: K08.89 Other specified disorders of teeth and supporting structures (principal); G89.29 Other chronic pain; F41.9 Anxiety disorder, unspecified; F32.9 Major depressive disorder, single episode, unspecified; Z87.891 Personal history of nicotine dependence; Z88.8 Allergy status to other drugs, medicaments and biological substances; Z79.899 Other long term (current) drug therapy
CPT/HCPCS: 99282

== ENCOUNTER 2018-08-20 16:29 | Emergency (ER) | payer SELFPAY ==
[2018-08-20 16:46] VITALS: BP 151/94
[2018-08-20] MEDS ORDERED: Bacitracin Oint 1 GM U/D Packet TOP ONE (16:59)
--- NOTE | 2018-08-20 16:59 | EDM.PDOC ---
ED HPI GENERAL MEDICAL PROBLEM - General Chief Complaint: Laceration Stated Complaint: RIGHT HAND CUT ON GLASS Time Seen by Provider: 08/20/18 16:59 Source of Information: Reports: Patient History Limitations: Reports: No Limitations - History of Present Illness INITIAL COMMENTS - FREE TEXT/NARRATIVE: 58-year-old female cut her right hand while washing dishes. A glass broke and cut her right hand on the dorsal aspect of the fifth MP joint. She has a 3 cm flap laceration. 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 right toe surgery Social & Family History - Family History Cardiac: Reports: [place] - Tobacco Use Smoking Status *Q: Current Every Day Smoker Years of Tobacco use: 13 Packs/Tins Daily: 0.2 Used Tobacco, but Quit: No Second Hand Smoke Exposure: Yes - Caffeine Use Caffeine Use: Reports: Soda - Recreational Drug Use Recreational Drug Use: No ED ROS GENERAL - Review of Systems Review Of Systems: See Below Constitutional: Denies: Fever, Chills HEENT: Reports: Other (Ongoing dental pain, she continues clindamycin and has an appointment for extraction on the ) Cardiovascular: Reports: No Symptoms GI/Abdominal: Reports: No Symptoms ED EXAM, SKIN/RASH Exam: See Below Exam Limited By: No Limitations General Appearance: Alert, No Apparent Distress Head: Atraumatic Respiratory/Chest: No Respiratory Distress Extremities: Other (Exam is otherwise limited to the right hand. Patient has a 3 cm flap laceration over the MP joint of the fifth digit, distal CMS is completely normal) Course - Vital Signs Last Recorded V/S: Last Vital Signs Temp 98.2 F 08/20/18 16:57 Pulse 97 08/20/18 16:57 Resp 16 08/20/18 16:57 BP 151/94 H 08/20/18 16:57 Pulse Ox 98 08/20/18 16:57 - Orders/Labs/Meds Meds: Medications Discontinued Medications Generic Name Dose Route Start Last Admin Trade Name Christa PRN Reason Stop Dose Admin Bacitracin 1 dose 08/20/18 16:59 08/20/18 17:07 Bacitracin Oint 1 Gm TOP 08/20/18 17:00 1 dose ONETIME ONE Administration Diphtheria/Tetanus/Acell Pertussis 0.5 ml 08/20/18 17:22 08/20/18 17:30 Adacel IM 08/20/18 17:23 0.5 ml .ONCE ONE Administration Lidocaine HCl 5 ml 08/20/18 16:59 08/20/18 17:07 Xylocaine-Mpf 1% INJECT 08/20/18 17:00 5 ml ONETIME ONE Administration - Re-Assessments/Exams Free Text/Narrative Re-Assessment/Exam: 08/20/18 17:26 The laceration was anesthetized with 1% lidocaine, cleansed thoroughly with saline and 5 5-0 Ethilon sutures were used to close the laceration. Topical bacitracin and a dressing were applied, she was given a TDap Booster vaccination. Sutures can be removed in 7 days. Departure - Departure Time of Disposition: 17:32 Disposition: Home, Self-Care 01 Condition: Good Clinical Impression: Laceration of hand Qualifiers: Encounter type: initial encounter Foreign body presence: without foreign body Laterality: right Qualified Code(s): S61.411A - Laceration without foreign body of right hand, initial encounter - Discharge Information Instructions: Laceration Care, Adult Referrals: Familia Lomax MD [Primary Care Provider] - Forms: ED Department Discharge Care Plan Goals: Keep wound covered and clean while healing, and sutures can be removed in 8 days , next . Return sooner if concerns of infection or not healing satisfactorily.
[2018-08-20] MEDS ORDERED: Diphtheria,Pertussis(Acell),Tetanus Vaccine 0.5 ML SDV IM ONE (17:22)
== END 2018-08-20 17:32 | disposition home or self-care (01) ==
LOC: JP.ED 16:29
DX: S61.411A Laceration without foreign body of right hand, initial encounter (principal); Z23 Encounter for immunization; Z88.8 Allergy status to other drugs, medicaments and biological substances; W25.XXXA Contact with sharp glass, initial encounter; Y93.G1 Activity, food preparation and clean up
CPT/HCPCS: 12002; 90471; 90715; 99282; J2001

== ENCOUNTER 2018-08-26 15:11 | Emergency (ER) | payer SELFPAY ==
[2018-08-26 15:46] VITALS: BP 133/79
[2018-08-26] MEDS ORDERED: Cyclobenzaprine 10 MG Tab PO ONE (17:08)
[2018-08-26] MEDS ORDERED: Ketorolac 60 MG/2 ML SDV IM ONE (17:08)
--- NOTE | 2018-08-26 17:10 | EDM.PDOC ---
ED HPI GENERAL MEDICAL PROBLEM - General Chief Complaint: Back Pain or Injury Stated Complaint: BACK AND KNEE PAIN Time Seen by Provider: 08/26/18 17:05 Source of Information: Reports: Patient, RN Notes Reviewed History Limitations: Reports: No Limitations - History of Present Illness INITIAL COMMENTS - FREE TEXT/NARRATIVE: 58-year-old female presents to emergency department today complaining of low back pain. Only on the right side, she denies any trauma thinks it may have happened when she bent over to pick something up. 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 right toe surgery Social & Family History - Family History Cardiac: Reports: [place] - Tobacco Use Smoking Status *Q: Current Every Day Smoker Years of Tobacco use: 30 Packs/Tins Daily: 0.5 - Caffeine Use Caffeine Use: Reports: Soda - Recreational Drug Use Recreational Drug Use: No ED ROS GENERAL - Review of Systems Review Of Systems: See Below Constitutional: Reports: No Symptoms HEENT: Reports: No Symptoms Respiratory: Reports: No Symptoms Cardiovascular: Reports: No Symptoms GI/Abdominal: Reports: No Symptoms Musculoskeletal: Reports: Neck Pain Neurological: Reports: No Symptoms ED EXAM,LOWER BACK PAIN/INJURY - Physical Exam Exam: See Below Exam Limited By: No Limitations General Appearance: Alert, Mild Distress Respiratory/Chest: No Respiratory Distress Back Exam: Normal Inspection, Decreased Range of Motion, Muscle Spasm, Paraspinal Tenderness. No: CVA Tenderness (R), CVA Tenderness (L), Vertebral Tenderness Course - Vital Signs Last Recorded V/S: Last Vital Signs Temp 98.0 F 08/26/18 15:56 Pulse 88 08/26/18 15:56 Resp 16 08/26/18 15:56 BP 133/79 08/26/18 15:56 Pulse Ox 99 08/26/18 15:56 - Orders/Labs/Meds Meds: Medications Discontinued Medications Generic Name Dose Route Start Last Admin Trade Name Christa PRN Reason Stop Dose Admin Cyclobenzaprine HCl 10 mg 08/26/18 17:08 08/26/18 17:14 Flexeril PO 08/26/18 17:09 10 mg ONETIME ONE Administration Ketorolac Tromethamine 60 mg 08/26/18 17:08 08/26/18 17:14 Toradol IM 08/26/18 17:09 60 mg ONETIME ONE Administration Departure - Departure Time of Disposition: 17:43 Disposition: Home, Self-Care 01 Condition: Fair Clinical Impression: Low back pain Qualifiers: Chronicity: acute Back pain laterality: right Sciatica presence: without sciatica Qualified Code(s): M54.5 - Low back pain - Discharge Information Referrals: Familia Lomax MD [Primary Care Provider] - Forms: ED Department Discharge, ED Return to Work/School Form Additional Instructions: Use ibuprofen for baseline pain control use hydrocodone for breakthrough pain Please followup with your primary care provider in 3-5 days if not better, please call return to the emergency department with worsening of symptoms. - Assessment/Plan Plan: Assessment Acuity = acute Site and laterality = low back pain Etiology = secondary lifting injury Manifestations = none Location of injury = Home Lab values = none Plan Good improvement, in addition Toradol and Flexeril discharged home with hydrocodone 5/325 one tab by mouth 3 times a day when necessary total #6 follow up with primary care 3-5 days if no improvement This note was dictated using [employer] voice recognition software please call with any questions on syntax or grammar.
== END 2018-08-26 17:51 | disposition home or self-care (01) ==
LOC: JP.ED 15:11
DX: M54.5 Low back pain (principal); F41.9 Anxiety disorder, unspecified; F32.9 Major depressive disorder, single episode, unspecified; F17.210 Nicotine dependence, cigarettes, uncomplicated; Z88.8 Allergy status to other drugs, medicaments and biological substances; Z79.899 Other long term (current) drug therapy
CPT/HCPCS: 96372; 99283; A9270; J1885

== ENCOUNTER 2018-09-03 08:41 | Emergency (ER) | payer SELFPAY ==
[2018-09-03 09:00] VITALS: BP 119/80
--- NOTE | 2018-09-03 09:26 | EDM.PDOC ---
ED HPI GENERAL MEDICAL PROBLEM - General Chief Complaint: ENT Problem Stated Complaint: SWELLING IN LOWER JAW AREA Time Seen by Provider: 09/03/18 09:19 Source of Information: Reports: Patient History Limitations: Reports: No Limitations - History of Present Illness INITIAL COMMENTS - FREE TEXT/NARRATIVE: 58-year-old female with long-standing advanced dental decay of the lower incisors and canines arrives with swelling and inflammation and pain over the last several days. Clindamycin was called in for her by her primary provider yesterday but she did not have the money to get it, she does today. She has an appointment with the dentist on Saturday of next week. Onset: Gradual Duration: Week(s): (Symptoms have been ongoing for weeks) Associated Symptoms: Reports: Malaise. 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 right toe surgery Social & Family History - Family History Cardiac: Reports: [place] - Tobacco Use Smoking Status *Q: Current Every Day Smoker Years of Tobacco use: 17 Packs/Tins Daily: 0.5 Used Tobacco, but Quit: No Second Hand Smoke Exposure: Yes - Caffeine Use Caffeine Use: Reports: Soda - Recreational Drug Use Recreational Drug Use: No ED ROS ENT - Review of Systems Review Of Systems: See Below Constitutional: Reports: Malaise. Denies: Fever, Chills HEENT: Reports: Other (Dental pain of the left mandible with swelling of the chin and gingival erythema) Respiratory: Denies: Shortness of Breath GI/Abdominal: Denies: Nausea, Vomiting Musculoskeletal: Reports: Back Pain (Intermittent back pain) Neurological: Denies: Headache ED EXAM, ENT - Physical Exam Exam: See Below Exam Limited By: No Limitations General Appearance: Alert, No Apparent Distress (Looks uncomfortable but not distressed) Mouth/Throat: Other (She has again very advanced dental decay of the mandibular canines and incisors with gingival erythema and swelling) Respiratory/Chest: No Respiratory Distress Course - Vital Signs Last Recorded V/S: Last Vital Signs Temp 99.3 F 09/03/18 09:06 Pulse 100 09/03/18 09:06 Resp 16 09/03/18 09:06 BP 119/80 09/03/18 09:06 Pulse Ox 98 09/03/18 09:06 - Re-Assessments/Exams Free Text/Narrative Re-Assessment/Exam: 09/03/18 09:37 Patient will be given 20 doses of Toradol to take every 6 hours along with her clindamycin. It's extremely important she start her antibiotic. Departure - Departure Time of Disposition: 09:58 Disposition: Home, Self-Care 01 Condition: Good Clinical Impression: Dental abscess - Discharge Information Instructions: Dental Abscess, [id number] Referrals: PCP,None [Primary Care Provider] - Forms: ED Department Discharge Care Plan Goals: It's extremely important she started her antibiotic as soon as possible. Take one pain pill every 6 hours until pain settles down, next with Tylenol as well. Return if worsening such as increased swelling or fever. Dental care as soon as possible.
== END 2018-09-03 09:58 | disposition home or self-care (01) ==
LOC: JP.ED 08:41
DX: K04.7 Periapical abscess without sinus (principal); F17.210 Nicotine dependence, cigarettes, uncomplicated; F41.9 Anxiety disorder, unspecified; F32.9 Major depressive disorder, single episode, unspecified; Z79.899 Other long term (current) drug therapy; Z88.8 Allergy status to other drugs, medicaments and biological substances
CPT/HCPCS: 99282

== ENCOUNTER 2018-09-21 17:43 | Emergency (ER) | payer SELFPAY ==
[2018-09-21] MEDS ORDERED: LORazepam 0.5 MG Tab PO ONE ×2 (18:15→18:59)
[2018-09-21] MEDS ORDERED: traMADol 50 MG Tab PO ONE (18:15)
[2018-09-21 18:18] VITALS: BP 132/87
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
[2018-09-21] MEDS ORDERED: Acetaminophen 500 MG Tab PO ONE (18:59)
== END 2018-09-21 19:50 | disposition home or self-care (01) ==
LOC: JP.ED 17:43
DX: G44.209 Tension-type headache, unspecified, not intractable (principal); F41.9 Anxiety disorder, unspecified; K00.7 Teething syndrome; M19.90 Unspecified osteoarthritis, unspecified site; F32.9 Major depressive disorder, single episode, unspecified; F17.210 Nicotine dependence, cigarettes, uncomplicated; Z79.899 Other long term (current) drug therapy; Z88.8 Allergy status to other drugs, medicaments and biological substances; Z96.652 Presence of left artificial knee joint
CPT/HCPCS: 93005; 99284; A9270

== ENCOUNTER 2018-12-04 16:20 | Emergency (ER) | payer SELFPAY ==
[2018-12-04 16:37] VITALS: BP 132/80; PULSE 87
[2018-12-04] MEDS ORDERED: Acetaminophen/HYDROcodone 325-5 MG Tab PO ONE (16:51)
--- NOTE | 2018-12-04 16:59 | EDM.PDOC ---
ED HPI GENERAL MEDICAL PROBLEM - General Chief Complaint: Lower Extremity Injury/Pain Stated Complaint: PAIN IN LEFT KNEE Time Seen by Provider: 12/04/18 16:45 Source of Information: Reports: Patient, Old Records History Limitations: Reports: No Limitations - History of Present Illness INITIAL COMMENTS - FREE TEXT/NARRATIVE: 58 yo female here with L knee pain after reportedly falling on 3 stairs today. Has a knee replacement per Dr. Pastor. He couldn't get her in this week. Is out of her pain meds. Knee not more swollen than usual. Has a walker at home. Dr. Lomax is her primary. Onset: Today Onset Date: 12/04/18 Duration: Hour(s): Location: Reports: Lower Extremity, Left Quality: Reports: Ache Severity: Moderate Improves with: Reports: Medication, Rest Worsens with: Reports: Movement Context: Reports: Trauma Associated Symptoms: Reports: No Other Symptoms Treatments MANAGER OF GLOBAL: Reports: Other (see below) (none) - Related Data Allergies Allergy/AdvReac Type Severity Reaction Status Date / Time naproxen Allergy Rash Verified 12/04/18 16:54 Home Meds: Home Meds QUEtiapine [SEROquel XR] 50 mg PO BEDTIME 11/17/16 [History] Venlafaxine [Effexor] 37.5 mg PO BID 01/10/18 [History] ALPRAZolam [Alprazolam] 0.25 mg PO ASDIRECTED 08/26/18 [History] Clindamycin HCl [Cleocin HCl] 300 mg PO TID 09/03/18 [History] Acetaminophen/HYDROcodone [[place] 325-5 MG] 1 - 2 tab PO Q6H PRN #10 tab [Rx] Past Medical History HEENT History: Reports: Impaired Vision, Other (See Below) Other HEENT History: Severe dental carries. 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 right toe surgery Social & Family History - Family History Cardiac: Reports: [place] - Caffeine Use Caffeine Use: Reports: Soda Review of Systems - Review of Systems Review Of Systems: See Below Constitutional: Reports: No Symptoms Eyes: Reports: Foreign Body Sensation Musculoskeletal: Reports: Joint Pain (L knee) Skin: Reports: No Symptoms ED EXAM, GENERAL - Physical Exam Exam: See Below Exam Limited By: No Limitations General Appearance: Alert, WD/WN, No Apparent Distress Eye Exam: Bilateral Eye: Normal Inspection Extremities: Normal Inspection, Limited Range of Motion (due to pain). No: Non- Tender, No Pedal Edema (minimal edema, not new), Increased Warmth Neurological: Alert, Oriented, CN II-XII Intact, Normal Cognition, No Motor/ Sensory Deficits Psychiatric: Normal Affect, Normal Mood Skin Exam: Warm, Dry, Intact, Normal Color, No Rash Course - Vital Signs Last Recorded V/S: Last Vital Signs Temp 36.4 C 12/04/18 16:36 Pulse 87 12/04/18 16:36 Resp 16 12/04/18 16:36 BP 132/80 12/04/18 16:36 Pulse Ox 97 12/04/18 16:36 - Orders/Labs/Meds Meds: Medications Discontinued Medications Generic Name Dose Route Start Last Admin Trade Name Freq PRN Reason Stop Dose Admin Hydrocodone Bitart/Acetaminophen 1 tab 12/04/18 16:51 [place] 325-5 Mg PO 12/04/18 16:52 ONETIME ONE Departure - Departure Time of Disposition: 17:00 Disposition: Home, Self-Care 01 Condition: Fair Clinical Impression: Left knee pain Qualifiers: Chronicity: acute Qualified Code(s): M25.562 - Pain in left knee - Discharge Information *PRESCRIPTION DRUG MONITORING PROGRAM REVIEWED*: No *COPY OF PRESCRIPTION DRUG MONITORING REPORT IN PATIENT FABIAN: No Prescriptions: Acetaminophen/HYDROcodone [[place] 325-5 MG] 1 - 2 tab PO Q6H PRN #10 tab PRN Reason: Pain Referrals: Familia Lomax MD [Primary Care Provider] - Additional Instructions: Take ibuprofen and/or acetaminophen for pain relief. Substitute [place] for acetaminophen if needed. See either Darby or Dami if more pain meds are needed.
== END 2018-12-04 17:13 | disposition home or self-care (01) ==
LOC: JP.ED 16:20
DX: M25.562 Pain in left knee (principal); F41.9 Anxiety disorder, unspecified; F32.9 Major depressive disorder, single episode, unspecified; M19.90 Unspecified osteoarthritis, unspecified site; Z88.8 Allergy status to other drugs, medicaments and biological substances; Z79.891 Long term (current) use of opiate analgesic; Z79.899 Other long term (current) drug therapy
CPT/HCPCS: 99283; A9270

== ENCOUNTER 2019-01-05 07:44 | Emergency (ER) | payer SELFPAY ==
[2019-01-05 08:13] VITALS: BP 133/80; PULSE 98
[2019-01-05] MEDS ORDERED: Prochlorperazine 10 MG/2 ML SDV IVPUSH ONE (08:29)
[2019-01-05] MEDS ORDERED: diphenhydrAMINE 50 MG/ML SDV IVPUSH ONE (08:29)
[2019-01-05] MEDS ORDERED: Ketorolac 30 MG/ML SDV IVPUSH ONE (08:29)
--- NOTE | 2019-01-05 08:33 | EDM.PDOC ---
ED HPI GENERAL MEDICAL PROBLEM - General Chief Complaint: Headache Stated Complaint: HEADACHE FOR PAST THREE DAYS Time Seen by Provider: 01/05/19 08:20 Source of Information: Reports: Patient, Old Records, RN Notes Reviewed History Limitations: Reports: No Limitations - History of Present Illness INITIAL COMMENTS - FREE TEXT/NARRATIVE: 58-year-old female presents emergency department today complaint of headache, she states that headache for the last 3 days with nausea no vomiting does have photophobia as well. She states this is typical for her for her migraine type headaches. She believes she gets a headache about every 3 months. She is not visited with a specialist for her headaches. Has never used Imitrex-type products. Asked for hydrocodone Headache Pain Score (Numeric/FACES): 10 - Related Data Allergies Allergy/AdvReac Type Severity Reaction Status Date / Time naproxen Allergy Rash Verified 12/04/18 16:54 Home Meds: Home Meds QUEtiapine [SEROquel XR] 50 mg PO BEDTIME 11/17/16 [History] Venlafaxine [Effexor] 37.5 mg PO BID 01/10/18 [History] ALPRAZolam [Alprazolam] 0.25 mg PO ASDIRECTED 08/26/18 [History] Zolpidem [Ambien] 5 mg PO BEDTIME PRN 12/04/18 [History] Past Medical History HEENT History: Reports: Impaired Vision, Other (See Below) Other HEENT History: Severe dental carries. 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 right toe surgery Social & Family History - Family History Cardiac: Reports: [place] - Tobacco Use Smoking Status *Q: Current Every Day Smoker Years of Tobacco use: 13 Packs/Tins Daily: 0.5 - Caffeine Use Caffeine Use: Reports: Soda - Recreational Drug Use Recreational Drug Use: No ED ROS GENERAL - Review of Systems Review Of Systems: See Below Constitutional: Denies: Fever, Chills HEENT: Reports: Vision Change (Photophobia and double vision) Respiratory: Reports: No Symptoms Cardiovascular: Reports: No Symptoms GI/Abdominal: Reports: Nausea. Denies: Vomiting : Reports: No Symptoms Musculoskeletal: Reports: No Symptoms - Physical Exam Exam: See Below Exam Limited By: No Limitations General Appearance: Alert, Mild Distress Eye Exam: Bilateral Eye: EOMI, Normal Fundi, Normal Inspection, PERRL Respiratory/Chest: No Respiratory Distress Course - Vital Signs Last Recorded V/S: Last Vital Signs Temp 99.3 F 01/05/19 08:12 Pulse 98 01/05/19 08:12 Resp 16 01/05/19 08:12 BP 133/80 01/05/19 08:12 Pulse Ox 95 01/05/19 08:12 - Orders/Labs/Meds Orders: Active Orders 24 hr Category Date Time Status Peripheral IV Care [RC] . DIRECTED Care 01/05/19 08:29 Active Magnesium Sulfate/Water [Magnesium Sulfate in Water Med 01/05/19 10:20 Active Premix] 2 gm Premix Bag 1 bag IV ONETIME Sodium Chloride 0.9% [Saline Flush] Med 01/05/19 08:29 Active 10 ml FLUSH ASDIRECTED PRN Valproate Sodium [Depacon] 500 mg Med 01/05/19 10:35 Active Sodium Chloride 0.9% [Normal Saline] 50 ml IV ONETIME Peripheral IV Insertion Adult [OM.PC] Urgent Oth 01/05/19 08:29 Ordered Medication Orders Magnesium Sulfate 2 gm/ Premix 50 mls @ 12.5 mls/hr IV ONETIME ONE Stop: 01/05/19 14:19 Valproic Acid 500 mg/ Sodium (Chloride) 55 mls @ 55 mls/hr IV ONETIME ONE Stop: 01/05/19 11:34 Sodium Chloride (Saline Flush) 10 ml FLUSH ASDIRECTED PRN PRN Reason: Keep Vein Open Last Admin: 01/05/19 09:40 Dose: 10 ml Admin: 01/05/19 08:50 Dose: 10 ml Admin: 01/05/19 08:48 Dose: 10 ml Admin: 01/05/19 08:46 Dose: 10 ml Meds: Medications Generic Name Dose Route Start Last Admin Trade Name Freq PRN Reason Stop Dose Admin Magnesium Sulfate 2 gm/ Premix 50 mls @ 12.5 mls/hr 01/05/19 10:20 IV 01/05/19 14:19 ONETIME ONE Valproic Acid 500 mg/ Sodium 55 mls @ 55 mls/hr 01/05/19 10:35 Chloride IV 01/05/19 11:34 ONETIME ONE Sodium Chloride 10 ml 01/05/19 08:29 01/05/19 09:40 Saline Flush FLUSH 10 ml ASDIRECTED PRN Administration Keep Vein Open Discontinued Medications Generic Name Dose Route Start Last Admin Trade Name Freq PRN Reason Stop Dose Admin Dexamethasone 8 mg 01/05/19 09:45 01/05/19 09:39 Dexamethasone IVPUSH 01/05/19 09:46 8 mg ONETIME ONE Administration Diphenhydramine HCl 50 mg 01/05/19 08:29 01/05/19 08:40 Benadryl IVPUSH 01/05/19 08:30 50 mg ONETIME ONE Administration Haloperidol Lactate 5 mg 01/05/19 09:31 01/05/19 09:37 Haldol IVPUSH 01/05/19 09:32 5 mg ONETIME ONE Administration Ketorolac Tromethamine 30 mg 01/05/19 08:29 01/05/19 08:42 Toradol IVPUSH 01/05/19 08:30 30 mg ONETIME ONE Administration Prochlorperazine Edisylate 5 mg 01/05/19 08:29 01/05/19 08:48 Compazine IVPUSH 01/05/19 08:30 5 mg ONETIME ONE Administration Departure - Departure Time of Disposition: 10:40 Disposition: Home, Self-Care 01 Condition: Fair Clinical Impression: Migraine - Discharge Information Referrals: Familia Lomax MD [Primary Care Provider] - Forms: ED Department Discharge Additional Instructions: Continue using ibuprofen or Tylenol as needed for pain control, recommend follow -up with primary care with consultation to neurology call return to the emergency department worsening of symptoms. - My Orders Last 24 Hours: My Active Orders 01/05/19 08:29 Peripheral IV Care [RC] . DIRECTED Sodium Chloride 0.9% [Saline Flush] 10 ml FLUSH ASDIRECTED PRN Peripheral IV Insertion Adult [OM.PC] Urgent 01/05/19 10:20 Magnesium Sulfate/Water [Magnesium Sulfate in Water Premix] 2 gm Premix Bag 1 bag IV ONETIME 01/05/19 10:35 Valproate Sodium [Depacon] 500 mg Sodium Chloride 0.9% [Normal Saline] 50 ml IV ONETIME - Assessment/Plan Last 24 Hours: My Active Orders 01/05/19 08:29 Peripheral IV Care [RC] . DIRECTED Sodium Chloride 0.9% [Saline Flush] 10 ml FLUSH ASDIRECTED PRN Peripheral IV Insertion Adult [OM.PC] Urgent 01/05/19 10:20 Magnesium Sulfate/Water [Magnesium Sulfate in Water Premix] 2 gm Premix Bag 1 bag IV ONETIME 01/05/19 10:35 Valproate Sodium [Depacon] 500 mg Sodium Chloride 0.9% [Normal Saline] 50 ml IV ONETIME Plan: Assessment Acuity = acute Site and laterality = migraine type headache Etiology = unknown etiology Manifestations = none Location of injury = Home Lab values = none Plan She initially received Toradol, Compazine, Haldol and Benadryl with dexamethasone, she states this is provided no relief for her her headache is at the same level I had written for further treatment per the protocol to include valproic acid and magnesium sulfate of which she declined. She states she is going to go home and try and sleep it off. I recommend she follow-up with her primary care for further evaluation with consultation to neurology This note was dictated using [employer] voice recognition software please call with any questions on syntax or grammar.
[2019-01-05] MEDS: Sodium Chloride 0.9% 10 ML Syringe FLUSH PRN ×4 (08:46→09:40)
[2019-01-05] MEDS ORDERED: Haloperidol Lactate 5 MG/ML SDV IVPUSH ONE (09:31)
[2019-01-05] MEDS ORDERED: Dexamethasone 4 MG/ML 5 ML MDV IVPUSH ONE (09:31)
[2019-01-05] MEDS ORDERED: Dexamethasone 4 MG/ML SDV IVPUSH ONE (09:45)
[2019-01-05] MEDS ORDERED: Magnesium Sulfate/Water 2 GM in Premix Bag 1 BAG IV ONE (10:20)
== END 2019-01-05 10:51 | disposition home or self-care (01) ==
LOC: JP.ED 07:44
DX: G43.909 Migraine, unspecified, not intractable, without status migrainosus (principal); F41.9 Anxiety disorder, unspecified; F32.9 Major depressive disorder, single episode, unspecified; F17.210 Nicotine dependence, cigarettes, uncomplicated; Z88.8 Allergy status to other drugs, medicaments and biological substances; Z79.899 Other long term (current) drug therapy
CPT/HCPCS: 96374; 96375; 99283; J0780; J1100; J1200; J1630; J1885

== ENCOUNTER 2019-05-09 13:16 | Emergency (ER) | payer SELFPAY ==
[2019-05-09 13:43] VITALS: BP 120/70; PULSE 80
--- NOTE | 2019-05-09 13:55 | EDM.PDOC ---
ED HPI GENERAL MEDICAL PROBLEM - General Chief Complaint: Lower Extremity Injury/Pain Stated Complaint: FELL ON LEFT LEG Time Seen by Provider: 05/09/19 13:46 Source of Information: Reports: Patient History Limitations: Reports: No Limitations - History of Present Illness INITIAL COMMENTS - FREE TEXT/NARRATIVE: pt fell when she was leaving the longterm today and landed on her rt knee. She has increased pain in the knee. She has a ortho appt on sat with Dr Jara. Onset: Today, Other (pt slipped as she was getting in the truck. She twisted the knee. ) Duration: Hour(s): Location: Reports: Lower Extremity, Right Associated Symptoms: Reports: No Other Symptoms - Related Data Allergies Allergy/AdvReac Type Severity Reaction Status Date / Time naproxen Allergy Rash Verified 05/09/19 13:32 Home Meds: Home Meds QUEtiapine [SEROquel XR] 50 mg PO BEDTIME 11/17/16 [History] Venlafaxine [Effexor] 37.5 mg PO BID 01/10/18 [History] ALPRAZolam [Alprazolam] 0.25 mg PO ASDIRECTED 08/26/18 [History] Zolpidem [Ambien] 5 mg PO BEDTIME PRN 12/04/18 [History] Hydrocodone/Acetaminophen [Hydrocodon-Acetaminophen 5-325] 1 tab PO Q8HR [History] clonazePAM [Clonazepam] 1 tab PO TID PRN 05/09/19 [History] Past Medical History HEENT History: Reports: Impaired Vision, Other (See Below) Other HEENT History: Severe dental carries. 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 right toe surgery Social & Family History - Family History Cardiac: Reports: [place] - Tobacco Use Smoking Status *Q: Current Every Day Smoker Years of Tobacco use: 35 Packs/Tins Daily: 0.1 - Caffeine Use Caffeine Use: Reports: Soda Review of Systems - Review of Systems Review Of Systems: See Below Constitutional: Reports: No Symptoms Eyes: Reports: No Symptoms Ears: Reports: No Symptoms Nose: Reports: No Symptoms Mouth/Throat: Reports: No Symptoms Respiratory: Reports: No Symptoms Cardiovascular: Reports: No Symptoms GI/Abdominal: Reports: No Symptoms Genitourinary: Reports: No Symptoms Musculoskeletal: Reports: Other (pain in the rt knee. She does not have bruising or swelling. The knee is tender on the lower outer aspect. ) Skin: Reports: No Symptoms ED EXAM, GENERAL - Physical Exam Exam: See Below Free Text/Narrative:: pt arrived with pain in the rt tasha. She fell in the longterm parking lot getting into her truck. Exam Limited By: No Limitations General Appearance: Alert, Anxious, Moderate Distress Ears: Normal TMs Nose: Normal Inspection Throat/Mouth: Normal Inspection Head: Atraumatic Neck: Normal Inspection Extremities: Other (knee is tender on the outer lower aspect. There is no acute swelling or bruising. She has been having alot of pain in the knee and she has a orth appt for wed. ) Psychiatric: Normal Affect Course - Vital Signs Last Recorded V/S: Last Vital Signs Temp 36.3 C 05/09/19 13:42 Pulse 80 05/09/19 13:42 Resp 14 05/09/19 13:42 BP 120/70 05/09/19 13:42 Pulse Ox 94 L 05/09/19 13:42 - Orders/Labs/Meds Orders: Active Orders 24 hr Category Date Time Status Knee 3V Rt [CR] Stat Exams 05/09/19 13:57 Taken Meds: Medications Discontinued Medications Generic Name Dose Route Start Last Admin Trade Name Christa PRN Reason Stop Dose Admin Hydrocodone Bitart/Acetaminophen 1 tab 05/09/19 14:31 [place] 325-5 Mg PO 05/09/19 14:32 ONETIME ONE - Re-Assessments/Exams Free Text/Narrative Re-Assessment/Exam: 05/09/19 14:35 pt was given norco 5/325, her xray did not reveal a fracture. She has a knee imoblizer and she will use that for the next few days. Departure - Departure Time of Disposition: 14:36 Disposition: Home, Self-Care 01 Condition: Fair Clinical Impression: Contusion of right knee - Discharge Information Referrals: Familia Lomax MD [Primary Care Provider] - Forms: ED Department Discharge Care Plan Goals: cool pack to the area, knee imoblizer that she has at home, keep ortho appt, norco 5/325 q6 h prn for pain#10 Sepsis Event Note - Evaluation Sepsis Screening Result: No Definite Risk - Focused Exam Vital Signs: Vital Signs Temp Pulse Resp BP Pulse Ox 05/09/19 13:42 36.3 C 80 14 120/70 94 L Date Exam was Performed: 05/09/19 Time Exam was Performed: 14:34 - My Orders Last 24 Hours: My Active Orders 05/09/19 13:57 Knee 3V Rt [CR] Stat - Assessment/Plan Last 24 Hours: My Active Orders 05/09/19 13:57 Knee 3V Rt [CR] Stat
[2019-05-09] MEDS ORDERED: Acetaminophen/HYDROcodone 325-5 MG Tab PO ONE (14:31)
--- NOTE | 2019-05-09 14:43 | CRLCR ---
INDICATION: Fell onto right knee. FINDINGS: AP, lateral and oblique views of the right knee were obtained. There is no acute fracture seen or dislocation. There is no joint effusion. There is minimal medial joint space compartment narrowing with tiny articular aspect seen medially and laterally off the proximal tibia. IMPRESSION: No acute bone abnormality. Dictated by Scotty Melendez MD @ 05/09/2019 2:41:36 PM Dictated by: Scotty Melendez MD @ 05/09/2019 14:41:47 (Electronically Signed)
== END 2019-05-09 14:47 | disposition home or self-care (01) ==
LOC: JP.ED 13:16
DX: S80.01XA Contusion of right knee, initial encounter (principal); M19.90 Unspecified osteoarthritis, unspecified site; F41.9 Anxiety disorder, unspecified; F32.9 Major depressive disorder, single episode, unspecified; F17.210 Nicotine dependence, cigarettes, uncomplicated; Z88.8 Allergy status to other drugs, medicaments and biological substances; Z79.899 Other long term (current) drug therapy; W01.0XXA Fall on same level from slipping, tripping and stumbling without subsequent striking against object, initial encounter
CPT/HCPCS: 73562-RT; 99283; 99283-25

== ENCOUNTER 2019-05-31 17:20 | Emergency (ER) | payer SELFPAY ==
--- NOTE | 2019-05-31 18:09 | EDM.PDOC ---
ED HPI GENERAL MEDICAL PROBLEM - General Chief Complaint: Lower Extremity Injury/Pain Stated Complaint: RT FOOT PAIN Time Seen by Provider: 05/31/19 18:00 Source of Information: Reports: Patient, Old Records, RN History Limitations: Reports: No Limitations - History of Present Illness INITIAL COMMENTS - FREE TEXT/NARRATIVE: 59 yo female here for something stronger for pain relief. Had surgery a couple days ago on her R great toe by podiatry and was given hydrocodone which is not controlling her pain. No increased drainage, fever or recent injury. Has been elevating and taking ibuprofen. Her f/u appt is next Saturday. Onset: Gradual Onset Date: 05/29/19 Duration: Day(s):, Constant Location: Reports: Lower Extremity, Right Quality: Reports: Burning Severity: Severe Improves with: Reports: None Worsens with: Reports: Other (pain since her surgery) Context: Reports: Other (post op) Associated Symptoms: Reports: No Other Symptoms Treatments CAKE KNOCKER: Reports: NSAIDS, Other (see below) (hydrocodone) - Related Data Allergies Allergy/AdvReac Type Severity Reaction Status Date / Time cephalexin [From Keflex] Allergy Rash Verified 05/31/19 17:30 naproxen Allergy Rash Verified 05/31/19 17:30 Home Meds: Home Meds QUEtiapine [SEROquel XR] 50 mg PO BEDTIME 11/17/16 [History] Venlafaxine [Effexor] 37.5 mg PO BID 01/10/18 [History] Zolpidem [Ambien] 5 mg PO BEDTIME PRN 12/04/18 [History] Hydrocodone/Acetaminophen [Hydrocodon-Acetaminophen 5-325] 1 tab PO Q8HR [History] clonazePAM [Clonazepam] 1 tab PO TID PRN 05/09/19 [History] Mirtazapine 0.5 tab PO DAILY 05/31/19 [History] Past Medical History HEENT History: Reports: Impaired Vision, Other (See Below) Other HEENT History: Severe dental carries. 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 right toe surgery Social & Family History - Family History Cardiac: Reports: [place] - Tobacco Use Smoking Status *Q: Current Every Day Smoker Years of Tobacco use: 40 Packs/Tins Daily: 0.1 - Caffeine Use Caffeine Use: Reports: Soda Review of Systems - Review of Systems Review Of Systems: See Below Constitutional: Reports: No Symptoms Skin: Reports: Wound (I looked with a light on under the dressing and saw no purulent drainage or redness. ). Denies: Diaphoresis, Erythema Neurological: Reports: Numbness (Great toe) ED EXAM, GENERAL - Physical Exam Exam: See Below Exam Limited By: No Limitations General Appearance: Alert, WD/WN, No Apparent Distress Extremities: Normal Inspection, No Pedal Edema. No: Non-Tender, Pedal Edema, Increased Warmth, Redness Neurological: Alert, Oriented, CN II-XII Intact, Normal Cognition, Other (R great toe numbness). No: No Motor/Sensory Deficits Psychiatric: Normal Affect, Normal Mood Skin Exam: Warm, Dry, Intact, Normal Color, No Rash, Wound/Incision (surgical on dorsum of R great toe.). No: Erythema, Increased Warmth, Lymphangitis, Rash Course - Vital Signs Last Recorded V/S: Last Vital Signs Temp 36.1 C 05/31/19 17:37 Pulse 97 05/31/19 17:37 Resp 14 05/31/19 17:37 BP 143/77 H 05/31/19 17:37 Pulse Ox 94 L 05/31/19 17:37 Departure - Departure Time of Disposition: 18:11 Disposition: Home, Self-Care 01 Condition: Fair Clinical Impression: Post-op pain - Discharge Information *PRESCRIPTION DRUG MONITORING PROGRAM REVIEWED*: No *COPY OF PRESCRIPTION DRUG MONITORING REPORT IN PATIENT FABIAN: No Referrals: Familia Lomax MD [Primary Care Provider] - Forms: ED Department Discharge Additional Instructions: Continue current treatments, except hold [place] when taking the oxycodone/APAP. Call podiatry tomorrow to discuss your situation. F/U with your family doctor as needed. Sepsis Event Note - Evaluation Sepsis Screening Result: No Definite Risk - Focused Exam Vital Signs: Vital Signs Temp Pulse Resp BP Pulse Ox 02/09/20 17:37 36.1 C 97 14 143/77 H 94 L Date Exam was Performed: 05/31/19 Time Exam was Performed: 18:10
== END 2019-05-31 18:26 | disposition home or self-care (01) ==
LOC: JP.ED 17:20
CPT/HCPCS: 99283

== ENCOUNTER 2019-06-07 15:44 | Emergency (ER) | payer OTHER ==
[2019-06-07 16:06] VITALS: BP 138/80; PULSE 108
[2019-06-07] MEDS ORDERED: fentaNYL 100 MCG/2 ML SDV NASBOTH ONE (16:09)
--- NOTE | 2019-06-07 16:13 | EDM.PDOC ---
ED HPI GENERAL MEDICAL PROBLEM - General Chief Complaint: Lower Extremity Injury/Pain Stated Complaint: POSSIBLE STITCH POPPED OPEN Time Seen by Provider: 06/07/19 16:07 Source of Information: Reports: Patient, RN Notes Reviewed History Limitations: Reports: No Limitations - History of Present Illness INITIAL COMMENTS - FREE TEXT/NARRATIVE: 59-year-old female presents emergency department with a complaint of right foot pain, she is postop day 7 from a metacarpal surgery on the great toe. She ended up having a twisting injury today where she injured her foot possibly tearing sutures and causing bleeding at the surgical site. She is in significant pain but able to move her foot and all digits Right Foot Pain Score (Numeric/FACES): 7 - Related Data Allergies Allergy/AdvReac Type Severity Reaction Status Date / Time cephalexin [From Keflex] Allergy Rash Verified 06/07/19 15:49 naproxen Allergy Rash Verified 06/07/19 15:49 Home Meds: Home Meds QUEtiapine [SEROquel XR] 50 mg PO BEDTIME 11/17/16 [History] Venlafaxine [Effexor] 37.5 mg PO BID 01/10/18 [History] Zolpidem [Ambien] 5 mg PO BEDTIME PRN 12/04/18 [History] Hydrocodone/Acetaminophen [Hydrocodon-Acetaminophen 5-325] 1 tab PO Q8HR [History] clonazePAM [Clonazepam] 1 tab PO TID PRN 05/09/19 [History] Mirtazapine 0.5 tab PO DAILY 05/31/19 [History] Past Medical History HEENT History: Reports: Impaired Vision, Other (See Below) Other HEENT History: Severe dental carries. 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 right toe surgery Social & Family History - Family History Cardiac: Reports: [place] - Tobacco Use Smoking Status *Q: Current Every Day Smoker Years of Tobacco use: 16 Packs/Tins Daily: 0.2 Used Tobacco, but Quit: No Second Hand Smoke Exposure: Yes - Caffeine Use Caffeine Use: Reports: Soda - Recreational Drug Use Recreational Drug Use: No Review of Systems - Review of Systems Review Of Systems: See Below Constitutional: Reports: No Symptoms Musculoskeletal: Reports: Foot Pain Skin: Reports: Wound ED EXAM, GENERAL - Physical Exam Exam: See Below Free Text/Narrative:: Examination of the foot I do appreciate a small amount of bleeding along the surgical wound site over the first metacarpal she has limited range of motion of digits secondary to pain she is tender to palpation around the surgical site but not out of the ordinary postop day 7 no tenderness at the ankle no tenderness at the knee pedal pulses +2 Exam Limited By: No Limitations General Appearance: Alert, Mild Distress Course - Vital Signs Last Recorded V/S: Last Vital Signs Temp 96.3 F L 06/07/19 16:05 Pulse 108 H 06/07/19 16:05 Resp 16 06/07/19 16:05 BP 138/80 06/07/19 16:05 Pulse Ox 99 06/07/19 16:05 - Orders/Labs/Meds Orders: Active Orders 24 hr Category Date Time Status Foot 2V Rt [CR] Stat Exams 06/07/19 16:10 Taken Meds: Medications Discontinued Medications Generic Name Dose Route Start Last Admin Trade Name Christa PRN Reason Stop Dose Admin Fentanyl 50 mcg 06/07/19 16:09 06/07/19 16:16 Sublimaze NASBOTH 06/07/19 16:10 50 mcg ONETIME ONE Administration Departure - Departure Time of Disposition: 16:59 Disposition: Home, Self-Care 01 Condition: Fair Clinical Impression: Contusion of foot, right Qualifiers: Encounter type: initial encounter Qualified Code(s): S90.31XA - Contusion of right foot, initial encounter - Discharge Information Instructions: Foot Contusion, [id number] Referrals: PCP,None [Primary Care Provider] - Forms: ED Department Discharge Additional Instructions: Continue to use Percocet as needed for pain control, please contact your marinator in the morning for further evaluation as needed Sepsis Event Note - Evaluation Sepsis Screening Result: No Definite Risk - Focused Exam Vital Signs: Vital Signs Temp Pulse Resp BP Pulse Ox 06/07/19 16:05 96.3 F L 108 H 16 138/80 99 Date Exam was Performed: 06/07/19 Time Exam was Performed: 16:58 - My Orders Last 24 Hours: My Active Orders 06/07/19 16:10 Foot 2V Rt [CR] Stat - Assessment/Plan Last 24 Hours: My Active Orders 06/07/19 16:10 Foot 2V Rt [CR] Stat Plan: Assessment Acuity = acute Site and laterality = contusion right foot Etiology = secondary to trauma Manifestations = none Location of injury = Home Lab values = foot x-ray I did review films myself I cannot appreciate any acute process, the official read from radiology is pending Plan Prescription written for Percocet 5/325 1 tab p.o. 3 times daily as needed total #6 she will contact her marinator in the morning for further evaluation as needed This note was dictated using [employer] voice recognition software please call with any questions on syntax or grammar.
--- NOTE | 2019-06-08 11:51 | CR ---
FOOT RIGHT 3 views CLINICAL HISTORY:Pain, trauma FINDINGS:Patient has had the previous arthrodesis at the first MTP joint. There is a moderate size calcaneal spur.. No acute fracture or dislocation is identified Impression: Previous arthrodesis first MTP joint Calcaneal spur No fracture
== END 2019-06-07 17:14 | disposition home or self-care (01) ==
LOC: JP.ED 15:44
DX: S90.31XA Contusion of right foot, initial encounter (principal); Z88.1 Allergy status to other antibiotic agents; Z88.8 Allergy status to other drugs, medicaments and biological substances; F41.9 Anxiety disorder, unspecified; F32.9 Major depressive disorder, single episode, unspecified; F17.210 Nicotine dependence, cigarettes, uncomplicated; Z79.899 Other long term (current) drug therapy; X50.1XXA Overexertion from prolonged static or awkward postures, initial encounter
CPT/HCPCS: 73620; 99283; J3010

== ENCOUNTER 2019-09-05 17:41 | Emergency (ER) | payer SELFPAY ==
[2019-09-05 17:58] VITALS: BP 139/82; PULSE 104
[2019-09-05] MEDS ORDERED: fentaNYL 100 MCG/2 ML SDV IM ONE (18:13)
--- NOTE | 2019-09-05 18:14 | EDM.PDOC ---
ED HPI GENERAL MEDICAL PROBLEM - General Chief Complaint: General Stated Complaint: FELL/LEFT SIDE PAIN Time Seen by Provider: 09/05/19 18:04 Source of Information: Reports: Patient, RN Notes Reviewed History Limitations: Reports: No Limitations - History of Present Illness INITIAL COMMENTS - FREE TEXT/NARRATIVE: 59-year-old female presents emergency department a complaint of left-sided rib pain, she fell at home 3 days prior during the middle of the night went out to the kitchen believes she tripped on something hit the door handle of the fridge on the left side states her biggest issue is pain and it hurts to take a deep breath. - Related Data Allergies Allergy/AdvReac Type Severity Reaction Status Date / Time cephalexin [From Keflex] Allergy Rash Verified 09/05/19 17:56 naproxen Allergy Rash Verified 09/05/19 17:56 Home Meds: Home Meds QUEtiapine [SEROquel XR] 50 mg PO BEDTIME 11/17/16 [History] Venlafaxine [Effexor] 37.5 mg PO BID 01/10/18 [History] Zolpidem [Ambien] 5 mg PO BEDTIME PRN 12/04/18 [History] clonazePAM [Clonazepam] 1 tab PO TID PRN 05/09/19 [History] Past Medical History HEENT History: Reports: Impaired Vision, Other (See Below) Other HEENT History: Severe dental carries. 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 right toe surgery Social & Family History - Family History Cardiac: Reports: [place] - Tobacco Use Smoking Status *Q: Current Every Day Smoker Years of Tobacco use: 16 Packs/Tins Daily: 0.5 - Caffeine Use Caffeine Use: Reports: Soda ED ROS GENERAL - Review of Systems Review Of Systems: See Below Constitutional: Reports: No Symptoms HEENT: Reports: No Symptoms Respiratory: Reports: Shortness of Breath (With a deep breath) Cardiovascular: Reports: Chest Pain GI/Abdominal: Reports: No Symptoms : Reports: No Symptoms Musculoskeletal: Reports: No Symptoms Skin: Reports: No Symptoms ED EXAM, GENERAL - Physical Exam Exam: See Below Exam Limited By: No Limitations General Appearance: Alert (There is a season), WD/WN, No Apparent Distress Respiratory/Chest: No Respiratory Distress, Lungs Clear, Normal Breath Sounds, No Accessory Muscle Use, Other (Tender to palpation along the left side mid axillary line) Cardiovascular: Regular Rate, Rhythm, No Murmur GI/Abdominal: Soft, Non-Tender Course - Vital Signs Last Recorded V/S: Last Vital Signs Temp 97.7 F 09/05/19 18:01 Pulse 104 H 09/05/19 18:01 Resp 16 09/05/19 18:01 BP 139/82 09/05/19 18:01 Pulse Ox 95 09/05/19 18:01 Departure - Departure Time of Disposition: 18:13 Disposition: Home, Self-Care 01 Condition: Fair Clinical Impression: Contusion of rib on left side Qualifiers: Encounter type: initial encounter Qualified Code(s): S20.212A - Contusion of left front wall of thorax, initial encounter - Discharge Information Instructions: Rib Contusion Referrals: Familia Lomax MD [Primary Care Provider] - Additional Instructions: Continue using ibuprofen as needed for baseline pain control, use hydrocodone for breakthrough pain please keep your follow-up appointment with your primary care on Saturday, call return to the emergency department with worsening of symptoms Sepsis Event Note - Evaluation Sepsis Screening Result: No Definite Risk - Focused Exam Vital Signs: Vital Signs Temp Pulse Resp BP Pulse Ox 09/05/19 18:01 97.7 F 104 H 16 139/82 95 09/05/19 17:55 97.7 F 104 H 16 139/82 95 Date Exam was Performed: 09/05/19 Time Exam was Performed: 18:10 - Assessment/Plan Plan: Assessment Acuity = acute Site and laterality = rib contusion left side Etiology = secondary to fall Manifestations = none Location of injury = Home Lab values = none Plan Elected to treat empirically hydrocodone 5/325 1 tab p.o. 3 times daily PRN total #10 was provided fentanyl IM while in the emergency department is following up with primary care on Saturday This note was dictated using [employer] voice recognition software please call with any questions on syntax or grammar.
== END 2019-09-05 18:33 | disposition home or self-care (01) ==
LOC: JP.ED 17:41
DX: S20.212A Contusion of left front wall of thorax, initial encounter (principal); F17.210 Nicotine dependence, cigarettes, uncomplicated; M19.90 Unspecified osteoarthritis, unspecified site; F41.9 Anxiety disorder, unspecified; F32.9 Major depressive disorder, single episode, unspecified; Z88.1 Allergy status to other antibiotic agents; Z88.6 Allergy status to analgesic agent; Z79.899 Other long term (current) drug therapy; W01.190A Fall on same level from slipping, tripping and stumbling with subsequent striking against furniture, initial encounter; Y92.009 Unspecified place in unspecified non-institutional (private) residence as the place of occurrence of the external cause
CPT/HCPCS: 96372; 99283; 99284; J3010

== ENCOUNTER 2019-09-12 19:58 | Emergency (ER) | payer SELFPAY ==
[2019-09-12 21:41] VITALS: BP 118/79; PULSE 83
--- NOTE | 2019-09-12 22:25 | EDM.PDOC ---
ED HPI GENERAL MEDICAL PROBLEM - General Chief Complaint: Back Pain or Injury Stated Complaint: LOW BACK PAIN Time Seen by Provider: 09/12/19 22:15 Source of Information: Reports: Patient History Limitations: Reports: No Limitations - History of Present Illness INITIAL COMMENTS - FREE TEXT/NARRATIVE: Vonda presents today for complaints of ongoing left rib pain with radiation to back and to right side since her last ER visit when she fell and hurt her left ribs. She reports she was in to see her primary this past Saturday and did not get any pain medication. She denies any new injury, trauma, fever, chills, nausea, vomiting, difficulty breathing or other concerns. She has tried use of ibuprofen without any improvement. Left Trunk Pain Score (Numeric/FACES): 9 - Related Data Allergies Allergy/AdvReac Type Severity Reaction Status Date / Time cephalexin [From Keflex] Allergy Rash Verified 09/12/19 21:51 naproxen Allergy Rash Verified 09/12/19 21:51 Home Meds: Home Meds QUEtiapine [SEROquel XR] 50 mg PO BEDTIME 11/17/16 [History] Venlafaxine [Effexor] 37.5 mg PO BID 01/10/18 [History] Zolpidem [Ambien] 5 mg PO BEDTIME PRN 12/04/18 [History] clonazePAM [Clonazepam] 1 tab PO TID PRN 05/09/19 [History] Past Medical History HEENT History: Reports: Impaired Vision, Other (See Below) Other HEENT History: Severe dental carries. 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 right toe surgery Social & Family History - Family History Cardiac: Reports: [place] - Tobacco Use Smoking Status *Q: Current Every Day Smoker Years of Tobacco use: 16 Packs/Tins Daily: 0.2 - Caffeine Use Caffeine Use: Reports: Soda - Recreational Drug Use Recreational Drug Use: No ED ROS GENERAL - Review of Systems Review Of Systems: See Below Constitutional: Reports: No Symptoms HEENT: Reports: No Symptoms Respiratory: Reports: Other (left rib pain radiating to back and right ribs posterior). Denies: Shortness of Breath, Wheezing, Cough, Sputum, Hemoptysis Cardiovascular: Reports: Other (rib pain as described above). Denies: Blood Pressure Problem, Claudication, Dyspnea on Exertion, Edema, Lightheadedness, Orthopnea, Palpitations Endocrine: Reports: No Symptoms GI/Abdominal: Reports: No Symptoms Musculoskeletal: Reports: Other (pain to left rib, back) Skin: Reports: No Symptoms Neurological: Reports: No Symptoms Psychiatric: Reports: No Symptoms Immunologic: Reports: No Symptoms ED EXAM, GENERAL - Physical Exam Exam: See Below Exam Limited By: No Limitations General Appearance: Alert, WD/WN, No Apparent Distress Throat/Mouth: Normal Inspection, Normal Lips, Normal Teeth, Normal Gums, Normal Oropharynx, Normal Voice, No Airway Compromise Head: Atraumatic, Normocephalic Neck: Normal Inspection, Supple, Non-Tender, Full Range of Motion. No: Lymphadenopathy (R), Lymphadenopathy (L) Respiratory/Chest: No Respiratory Distress, Lungs Clear, Normal Breath Sounds, No Accessory Muscle Use, Other (no crepitus, no ecchymosis noted. Tenderness with palpation to left posterior ribs). No: Crackles, Rales, Rhonchi, Wheezing , Stridor, Pleural Rub, Accessory Muscle Use, Retractions, Splinting Cardiovascular: Normal Peripheral Pulses, Regular Rate, Rhythm, No Edema, No Gallop, No Murmur, No Rub Back Exam: Normal Inspection, Full Range of Motion. No: CVA Tenderness (R), CVA Tenderness (L), Muscle Spasm, Paraspinal Tenderness, Vertebral Tenderness Extremities: Normal Inspection, Normal Range of Motion, Non-Tender, No Pedal Edema, Normal Capillary Refill Neurological: Alert, Oriented, Normal Cognition, Normal Gait, No Motor/Sensory Deficits Psychiatric: Normal Affect, Normal Mood Skin Exam: Warm, Dry, Intact, Normal Color, No Rash Lymphatic: No Adenopathy Course - Vital Signs Last Recorded V/S: Last Vital Signs Temp 37.3 C 09/12/19 21:52 Pulse 83 09/12/19 21:52 Resp 16 09/12/19 21:52 BP 118/79 09/12/19 21:52 Pulse Ox 97 09/12/19 21:52 - Orders/Labs/Meds Orders: Active Orders 24 hr Category Date Time Status Ribs 2V wo Chest Lt [CR] Stat Exams 09/12/19 22:19 Taken Meds: Patient medications and use of opiate discussed with her. Respiratory depression risk reviewed. She is advised to not take any opiate along with current clonazepam and ambien. Patient tearful, upset, requesting hydrocodone for pain. She was advised to take tylenol and ibuprofen as directed. - Radiology Interpretation Free Text/Narrative:: chest x-ray with rib detail wet read, reviewed, no acute findings noted. Radiologist read pending. 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 Departure - Departure Time of Disposition: 23:32 Disposition: Home, Self-Care 01 Condition: Good Clinical Impression: Contusion of rib on left side Qualifiers: Encounter type: initial encounter Qualified Code(s): S20.212A - Contusion of left front wall of thorax, initial encounter - Discharge Information *PRESCRIPTION DRUG MONITORING PROGRAM REVIEWED*: Yes *COPY OF PRESCRIPTION DRUG MONITORING REPORT IN PATIENT FABIAN: Yes Instructions: Back Injury Prevention, [id number], Chronic Back Pain, Easy-to- Read Referrals: Familia Lomax MD [Primary Care Provider] - Forms: ED Department Discharge Additional Instructions: No rib fractures identified on x-ray. Radiologist read is pending. Take deep breaths and cough. Your ribs will hurt. Take tylenol and ibuprofen three times a day as needed for pain. You currently take a benzodiazipine and ambien, these medications are not safe to take with an opiate. Follow up with your primary provider as needed. Return for worsening, issues or concerns. Sepsis Event Note - Evaluation Sepsis Screening Result: No Definite Risk - Focused Exam Vital Signs: Vital Signs Temp Pulse Resp BP Pulse Ox 09/12/19 21:52 37.3 C 83 16 118/79 97 09/12/19 21:40 37.3 C 83 16 118/79 97 Date Exam was Performed: 09/13/19 Time Exam was Performed: 01:21 - My Orders Last 24 Hours: My Active Orders 09/12/19 22:19 Ribs 2V wo Chest Lt [CR] Stat - Assessment/Plan Last 24 Hours: My Active Orders 09/12/19 22:19 Ribs 2V wo Chest Lt [CR] Stat Plan: No rib fractures identified on x-ray. Radiologist read is pending. Take deep breaths and cough. Your ribs will hurt. Take tylenol and ibuprofen three times a day as needed for pain. You currently take a benzodiazipine and ambien, these medications are not safe to take with an opiate. Follow up with your primary provider as needed. Return for worsening, issues or concerns.
--- NOTE | 2019-09-15 09:42 | CR ---
Ribs 2V wo Chest Lt CLINICAL HISTORY: Fall, left rib pain FINDINGS: Patient is slightly displaced fractures of the fourth through eighth ribs. Study is limited to 2 views with less than optimal inspiration. No definite pleural effusion, pleural thickening or pneumothorax is seen. There is left lower lobe airspace disease IMPRESSION: Limited study Slightly displaced fractures of the fourth through eighth ribs Patchy airspace disease in the lower lung field is likely some atelectasis
== END 2019-09-13 00:01 | disposition home or self-care (01) ==
LOC: JP.ED 19:58
DX: S20.212A Contusion of left front wall of thorax, initial encounter (principal); F41.9 Anxiety disorder, unspecified; F32.9 Major depressive disorder, single episode, unspecified; F17.210 Nicotine dependence, cigarettes, uncomplicated; Z88.1 Allergy status to other antibiotic agents; Z88.6 Allergy status to analgesic agent; Z79.899 Other long term (current) drug therapy; W19.XXXA Unspecified fall, initial encounter
CPT/HCPCS: 71100-26-LT; 71100-LT; 99283

== ENCOUNTER 2020-04-17 08:25 | Emergency (ER) | payer MEDICAID ==
[2020-04-17 08:44] VITALS: BP 109/72; PULSE 88
--- NOTE | 2020-04-17 09:16 | EDM.PDOC ---
ED HPI GENERAL MEDICAL PROBLEM - General Chief Complaint: Back Pain or Injury Stated Complaint: BACK PAIN Time Seen by Provider: 04/17/20 09:04 Source of Information: Reports: Patient, Old Records, RN Notes Reviewed History Limitations: Reports: No Limitations - History of Present Illness INITIAL COMMENTS - FREE TEXT/NARRATIVE: 59-year-old female presents emergency department a complaint of chest wall pain, she has been dealing with rib fractures and sequelae from the rib fractures for several months has been following with her primary care. Recently underwent CAT scan April 08 has been treating her pain with gabapentin. Unfortunately she is having breakthrough pain and does have follow-up appointment with her primary care this week. No loss of bowel or bladder no numbness and tingling in the hands or feet pain with a deep breath Back Pain Score (Numeric/FACES): 8 - Related Data Allergies Allergy/AdvReac Type Severity Reaction Status Date / Time cephalexin [From Keflex] Allergy Rash Verified 09/12/19 21:51 naproxen Allergy Rash Verified 09/12/19 21:51 Home Meds: Home Meds QUEtiapine [SEROquel XR] 50 mg PO BEDTIME 11/17/16 [History] Venlafaxine [Effexor] 37.5 mg PO BID 01/10/18 [History] Zolpidem [Ambien] 5 mg PO BEDTIME PRN 12/04/18 [History] clonazePAM [Clonazepam] 1 tab PO TID PRN 05/09/19 [History] Gabapentin [Neurontin] 300 mg PO BID 04/17/20 [History] Past Medical History HEENT History: Reports: Impaired Vision, Other (See Below) Other HEENT History: Severe dental carries. 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, Musculoskeletal History: Reports: Arthritis, Fracture Other Musculoskeletal History: left knee total replacement Neurological History: Reports: Migraines Psychiatric History: Reports: Anxiety, Depression - Infectious Disease History Infectious Disease History: Reports: Chicken Pox, Measles - Past Surgical History Head Surgeries/Procedures: Reports: None HEENT Surgical History: Reports: None Cardiovascular Surgical History: Reports: None Respiratory Surgical History: Reports: None GI Surgical History: Reports: Appendectomy Female Surgical History: Reports: Hysterectomy Endocrine Surgical History: Reports: None Neurological Surgical History: Reports: None Musculoskeletal Surgical History: Reports: Carpal Tunnel, Knee Replacement, Other (See Below) Other Musculoskeletal Surgeries/Procedures:: left knee replacement. right toe surgery. fractures ribs 01/2020 Oncologic Surgical History: Reports: Biopsy of Breast Dermatological Surgical History: Reports: None Social & Family History - Family History Cardiac: Reports: [place] - Caffeine Use Caffeine Use: Reports: Coffee - Recreational Drug Use Recreational Drug Use: No ED ROS GENERAL - Review of Systems Review Of Systems: See Below Constitutional: Reports: No Symptoms Respiratory: Reports: Shortness of Breath Cardiovascular: Reports: Chest Pain GI/Abdominal: Reports: No Symptoms ED EXAM, GENERAL - Physical Exam Exam: See Below Exam Limited By: No Limitations General Appearance: Alert, WD/WN, No Apparent Distress Respiratory/Chest: No Respiratory Distress, Lungs Clear, Normal Breath Sounds, No Accessory Muscle Use, Other (Tenderness to palpation along the mid axillary line right side thoracic region) Cardiovascular: Regular Rate, Rhythm, No Murmur GI/Abdominal: Soft, Non-Tender Course - Vital Signs Last Recorded V/S: Last Vital Signs Temp 96.8 F L 04/17/20 08:44 Pulse 88 04/17/20 08:44 Resp 18 04/17/20 08:44 BP 109/72 04/17/20 08:44 Pulse Ox 98 04/17/20 08:44 Departure - Departure Time of Disposition: 09:17 Disposition: Home, Self-Care 01 Condition: Fair Clinical Impression: Multiple fractures of ribs with routine healing Qualifiers: Fracture type: closed Laterality: right Qualified Code(s): S22.41XD - Multiple fractures of ribs, right side, subsequent encounter for fracture with routine healing - Discharge Information Instructions: Rib Fracture Referrals: Familia Lomax MD [Primary Care Provider] - Additional Instructions: Continue to use ibuprofen for baseline pain control use hydrocodone for breakthrough pain please followup with your primary care provider in 3-5 days if not better, please call return to the emergency department with worsening of symptoms. Sepsis Event Note (ED) - Evaluation Sepsis Screening Result: No Definite Risk - Focused Exam Vital Signs: Vital Signs Temp Pulse Resp BP Pulse Ox 04/17/20 08:44 96.8 F L 88 18 109/72 98 04/17/20 08:43 96.8 F L 88 18 109/72 98 - Assessment/Plan Plan: Assessment Acuity = chronic Site and laterality = rib pain chest wall Etiology = trauma healing fractures Manifestations = none Location of injury = Home Lab values = none Plan Prescription written for hydrocodone 5/325 1 tab p.o. 3 times daily as needed total #10 she will contact her primary care in the morning This note was dictated using [employer] voice recognition software please call with any questions on syntax or grammar.
== END 2020-04-17 09:43 | disposition home or self-care (01) ==
LOC: JP.ED 08:25
DX: S22.41XD Multiple fractures of ribs, right side, subsequent encounter for fracture with routine healing (principal); F41.9 Anxiety disorder, unspecified; F32.9 Major depressive disorder, single episode, unspecified; Z88.1 Allergy status to other antibiotic agents; Z88.8 Allergy status to other drugs, medicaments and biological substances; Z79.899 Other long term (current) drug therapy; X58.XXXD Exposure to other specified factors, subsequent encounter
CPT/HCPCS: 99282

== ENCOUNTER 2020-07-23 18:34 | Emergency (ER) | payer MEDICAID ==
[2020-07-23 18:47] VITALS: BP 127/95; PULSE 96
--- NOTE | 2020-07-23 19:07 | EDM.PDOC ---
ED HPI GENERAL MEDICAL PROBLEM - General Chief Complaint: Upper Extremity Injury/Pain Stated Complaint: PAINFUL LEFT WRIST Time Seen by Provider: 07/23/20 18:45 Source of Information: Reports: Patient History Limitations: Reports: No Limitations - History of Present Illness INITIAL COMMENTS - FREE TEXT/NARRATIVE: 60-year-old female with left wrist pain and swelling. It has been present for several weeks but worse since she stumbled over the dog a few days ago, since then she has increased paresthesias and decreased sensation in the radial aspect of the hand, and swelling around the wrist. She was evaluated in the clinic and told she has carpal tunnel and given a splint, this was a few days ago and she took the splint off today because its not helping. She wanted to be reevaluated. It is fairly painful. No bruising or significant deformity, there is visible swelling especially over the dorsal wrist. She has had carpal tunnel surgery on the right hand which was successful. Onset: Sudden (Seem to start after falling over her dog a couple days ago) Duration: Day(s): (Several days) Location: Reports: Upper Extremity, Left Quality: Reports: Ache, Throbbing Worsens with: Reports: Movement Associated Symptoms: Reports: Other (Numbness and paresthesias of the thumb, index and middle fingers) - Related Data Allergies Allergy/AdvReac Type Severity Reaction Status Date / Time cephalexin [From Keflex] Allergy Rash Verified 07/23/20 18:51 naproxen Allergy Rash Verified 07/23/20 18:51 Home Meds: Home Meds QUEtiapine [SEROquel XR] 50 mg PO BEDTIME 11/17/16 [History] Venlafaxine [Effexor] 37.5 mg PO BID 01/10/18 [History] Zolpidem [Ambien] 5 mg PO BEDTIME PRN 12/04/18 [History] clonazePAM [Clonazepam] 1 tab PO TID PRN 05/09/19 [History] Gabapentin [Neurontin] 300 mg PO BID 04/17/20 [History] traZODone 50 mg PO BEDTIME 07/23/20 [History] Past Medical History HEENT History: Reports: Impaired Vision, Other (See Below) Other HEENT History: Severe dental carries. 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, Musculoskeletal History: Reports: Arthritis, Fracture Other Musculoskeletal History: left knee total replacement Neurological History: Reports: Migraines Psychiatric History: Reports: Anxiety, Depression Oncologic (Cancer) History: Reports: None - Infectious Disease History Infectious Disease History: Reports: Chicken Pox, Measles - Past Surgical History Head Surgeries/Procedures: Reports: None HEENT Surgical History: Reports: None Cardiovascular Surgical History: Reports: None Respiratory Surgical History: Reports: None GI Surgical History: Reports: Appendectomy Female Surgical History: Reports: Hysterectomy Endocrine Surgical History: Reports: None Neurological Surgical History: Reports: None Musculoskeletal Surgical History: Reports: Carpal Tunnel, Knee Replacement, Other (See Below) Other Musculoskeletal Surgeries/Procedures:: left knee replacement. right toe surgery. fractures ribs 01/2020 Oncologic Surgical History: Reports: Biopsy of Breast Dermatological Surgical History: Reports: None Social & Family History - Family History Cardiac: Reports: [place] - Tobacco Use Tobacco Use Status *Q: Current Every Day Tobacco User Years of Tobacco use: 40 Packs/Tins Daily: 1 Used Tobacco, but Quit: No - Caffeine Use Caffeine Use: Reports: Coffee Review of Systems - Review of Systems Review Of Systems: See Below Constitutional: Denies: Fever Eyes: Reports: Blurred Vision Respiratory: Reports: No Symptoms Cardiovascular: Reports: No Symptoms Musculoskeletal: Reports: Other (Swelling and pain around the left wrist, unable to close the wrist fully) Skin: Denies: Bruising, Rash Neurological: Reports: Paresthesia ED EXAM, GENERAL - Physical Exam Exam: See Below Exam Limited By: No Limitations General Appearance: Alert, No Apparent Distress Head: Atraumatic Respiratory/Chest: No Respiratory Distress, Lungs Clear Cardiovascular: Regular Rate, Rhythm Extremities: Other (Tenderness and swelling is present around the left wrist, limited range of motion) Neurological: Alert, Oriented, Other (Decreased sensation to the thumb, index, middle and radial aspect of the ring finger) Psychiatric: Normal Affect, Normal Mood Skin Exam: Warm, Dry Course - Vital Signs Last Recorded V/S: Last Vital Signs Temp 98.1 F 07/23/20 18:53 Pulse 96 07/23/20 18:53 Resp 16 07/23/20 18:53 BP 127/95 H 07/23/20 18:53 Pulse Ox 98 07/23/20 18:53 - Orders/Labs/Meds Orders: Active Orders 24 hr Category Date Time Status Consult to Orthopedic Clinic [CONS] Routine Cons 07/23/20 20:06 Active Wrist Comp Min 3V Lt [CR] Stat Exams 07/23/20 18:58 Taken - Re-Assessments/Exams Free Text/Narrative Re-Assessment/Exam: 07/23/20 19:08 Left wrist x-ray was obtained. 07/23/20 20:03 X-rays show significant arthritic changes but no acute fracture. She has been wearing the splint for weeks and she thinks it causes discomfort so she is going to try an Darron wrap for the next few days, I am going to put her on some tapering prednisone, gave her 10 doses of hydrocodone for extra pain control and will put in a referral to the orthopedic clinic for next week. Departure - Departure Time of Disposition: 20:21 Disposition: Home, Self-Care 01 Clinical Impression: Left wrist tendinitis, Severe carpal tunnel syndrome of left wrist - Discharge Information Instructions: Carpal Tunnel Syndrome, [id number] Referrals: Familia Lomax MD [Primary Care Provider] - Forms: ED Department Discharge Care Plan Goals: Take the prednisone in a tapering dose as directed, use hydrocodone for extra pain control if needed. Darron wrap the wrist and you should be called by the orthopedic department to discuss a recheck in the clinic. Sepsis Event Note (ED) - Evaluation Sepsis Screening Result: No Definite Risk - Focused Exam Vital Signs: Vital Signs Temp Pulse Resp BP Pulse Ox 07/23/20 18:53 98.1 F 96 16 127/95 H 98 07/23/20 18:45 98.1 F 96 16 127/95 H 98 - My Orders Last 24 Hours: My Active Orders 07/23/20 18:58 Wrist Comp Min 3V Lt [CR] Stat 07/23/20 20:06 Consult to Orthopedic Clinic [CONS] Routine - Assessment/Plan Last 24 Hours: My Active Orders 07/23/20 18:58 Wrist Comp Min 3V Lt [CR] Stat 07/23/20 20:06 Consult to Orthopedic Clinic [CONS] Routine
--- NOTE | 2020-07-25 09:26 | CR ---
Wrist Comp Min 3V Lt CLINICAL HISTORY: Pain, fall FINDINGS: There is no acute fracture or dislocation within the left wrist. 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 Patient has calcification in the triangular fibrocartilage complex. There is some osteoarthritic change at the scaphotrapezium joint. IMPRESSION: Degenerative changes No acute fracture or subluxation If clinical symptomatology persists or worsens a repeat exam is recommended.
== END 2020-07-23 20:20 | disposition home or self-care (01) ==
LOC: JP.ED 18:34
DX: G56.02 Carpal tunnel syndrome, left upper limb (principal); M77.9 Enthesopathy, unspecified; G43.909 Migraine, unspecified, not intractable, without status migrainosus; Z72.0 Tobacco use; Z88.1 Allergy status to other antibiotic agents; Z88.8 Allergy status to other drugs, medicaments and biological substances; Z79.899 Other long term (current) drug therapy
CPT/HCPCS: 73110-26-LT; 73110-LT; 99284-25

== ENCOUNTER 2020-08-03 13:27 | Emergency (ER) | payer MEDICAID ==
[2020-08-03 14:08] VITALS: BP 140/87; PULSE 104
--- NOTE | 2020-08-03 15:02 | EDM.PDOC ---
ED HPI GENERAL MEDICAL PROBLEM - General Chief Complaint: Upper Extremity Injury/Pain Stated Complaint: LEFT WRIST PAIN Time Seen by Provider: 08/03/20 14:30 Source of Information: Reports: Patient History Limitations: Reports: No Limitations - History of Present Illness INITIAL COMMENTS - FREE TEXT/NARRATIVE: 60-year-old female here with an exacerbation of chronic left carpal tunnel pain. I saw her just under 2 weeks ago and she responded fairly well to steroids and as needed hydrocodone. She set up an appointment and was rechecked at the clinic, then a consult with neurology for I believe an EMG was set up but not until August. She called the clinic today to tell them that she was worsening so they told her to come to the emergency room. She is wearing her splint. She is concerned that the pain is worsening, radiating up the wrist to her elbow and her fingers are becoming numb. Onset: Other (Symptoms are chronic, onset was months ago) Duration: Chronic Location: Reports: Upper Extremity, Left Improves with: Reports: Other (Wrapping and splinting is helpful) Left Arm Pain Score (Numeric/FACES): 8 - Related Data Allergies Allergy/AdvReac Type Severity Reaction Status Date / Time cephalexin [From Keflex] Allergy Rash Verified 08/03/20 14:24 naproxen Allergy Rash Verified 08/03/20 14:24 Home Meds: Home Meds QUEtiapine [SEROquel XR] 50 mg PO BEDTIME 11/17/16 [History] Venlafaxine [Effexor] 37.5 mg PO BID 01/10/18 [History] Zolpidem [Ambien] 5 mg PO BEDTIME PRN 12/04/18 [History] clonazePAM [Clonazepam] 1 tab PO BID PRN 05/09/19 [History] Gabapentin [Neurontin] 300 mg PO BID 04/17/20 [History] traZODone 50 mg PO BEDTIME 07/23/20 [History] Acetaminophen/HYDROcodone [[place] 325-5 MG] 1 tab PO Q4H PRN 08/03/20 [History] predniSONE [Prednisone] 10 mg PO DAILY 08/03/20 [History] Past Medical History HEENT History: Reports: Impaired Vision, Other (See Below) Other HEENT History: Severe dental carries. 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, Musculoskeletal History: Reports: Arthritis, Fracture Other Musculoskeletal History: left knee total replacement Neurological History: Reports: Migraines Psychiatric History: Reports: Anxiety, Depression Oncologic (Cancer) History: Reports: None - Infectious Disease History Infectious Disease History: Reports: Chicken Pox, Measles - Past Surgical History Head Surgeries/Procedures: Reports: None HEENT Surgical History: Reports: None GI Surgical History: Reports: Appendectomy Female Surgical History: Reports: Hysterectomy Musculoskeletal Surgical History: Reports: Carpal Tunnel, Knee Replacement, Other (See Below) Other Musculoskeletal Surgeries/Procedures:: left knee replacement. right toe surgery. fractures ribs 01/2020 Oncologic Surgical History: Reports: Biopsy of Breast Dermatological Surgical History: Reports: None Social & Family History - Family History Cardiac: Reports: [place] - Tobacco Use Tobacco Use Status *Q: Current Every Day Tobacco User Years of Tobacco use: 16 Packs/Tins Daily: 0.5 - Caffeine Use Caffeine Use: Reports: Soda - Recreational Drug Use Recreational Drug Use: No Review of Systems - Review of Systems Review Of Systems: See Below Constitutional: Denies: Fever Respiratory: Reports: No Symptoms Cardiovascular: Reports: No Symptoms Skin: Denies: Rash, Erythema Neurological: Reports: Paresthesia (Intermittent paresthesias of the left hand, especially the medial nerve distribution) ED EXAM, GENERAL - Physical Exam Exam: See Below Exam Limited By: No Limitations General Appearance: Alert, No Apparent Distress Head: Atraumatic Respiratory/Chest: No Respiratory Distress Extremities: Other (Exam is otherwise limited to the left arm. She has paresthesias and numbness to palpation around the median nerve distribution of the left hand and tenderness to palpation over the flexor surface of the wrist. Capillary refill is normal) Psychiatric: Normal Affect, Normal Mood Skin Exam: Warm, Dry Course - Vital Signs Last Recorded V/S: Last Vital Signs Temp 97.5 F 08/03/20 14:23 Pulse 104 H 08/03/20 14:23 Resp 18 08/03/20 14:23 BP 140/87 08/03/20 14:23 Pulse Ox 97 08/03/20 14:23 - Orders/Labs/Meds Orders: Active Orders 24 hr Category Date Time Status DME for Discharge [COMM] Stat Oth 08/03/20 14:54 Ordered - Re-Assessments/Exams Free Text/Narrative Re-Assessment/Exam: 08/03/20 17:24 She was given a new splint as her last one is lacking integrity as it is getting too soft and beat up. I put her on a Medrol Dosepak to take as directed, and gave her 10 additional hydrocodone for as needed pain control. She is going to talk to her primary provider about moving up her appointments for evaluation. Departure - Departure Time of Disposition: 15:12 Disposition: Home, Self-Care 01 Clinical Impression: Left carpal tunnel syndrome - Discharge Information Instructions: Carpal Tunnel Syndrome, [id number] Referrals: Familia Lomax MD [Primary Care Provider] - Forms: ED Department Discharge Care Plan Goals: Take the Medrol Dosepak as prescribed and continue with immobilization with Darron wrapping or the wrist plan. Try to get your diagnostics and treatment done soon as possible. Use hydrocodone for extra pain control as before. Sepsis Event Note (ED) - Evaluation Sepsis Screening Result: No Definite Risk - Focused Exam Vital Signs: Vital Signs Temp Pulse Resp BP Pulse Ox 08/03/20 14:23 97.5 F 104 H 18 140/87 97 08/03/20 14:07 97.5 F 104 H 18 140/87 97 - My Orders Last 24 Hours: My Active Orders 08/03/20 14:54 DME for Discharge [COMM] Stat - Assessment/Plan Last 24 Hours: My Active Orders 08/03/20 14:54 DME for Discharge [COMM] Stat
== END 2020-08-03 15:13 | disposition home or self-care (01) ==
LOC: JP.ED 13:27
DX: G56.02 Carpal tunnel syndrome, left upper limb (principal); Z88.1 Allergy status to other antibiotic agents; Z88.8 Allergy status to other drugs, medicaments and biological substances; Z79.899 Other long term (current) drug therapy; Z72.0 Tobacco use
CPT/HCPCS: 99283

== ENCOUNTER 2020-09-04 17:22 | Emergency (ER) | payer MEDICAID ==
[2020-09-04 17:33] VITALS: BP 130/91; PULSE 99
--- NOTE | 2020-09-04 17:42 | EDM.PDOC ---
ED HPI GENERAL MEDICAL PROBLEM - General Chief Complaint: Upper Extremity Injury/Pain Stated Complaint: LEFT WRIST PAIN Time Seen by Provider: 09/04/20 17:41 Source of Information: Reports: Patient History Limitations: Reports: No Limitations - Related Data Allergies Allergy/AdvReac Type Severity Reaction Status Date / Time cephalexin [From Keflex] Allergy Rash Verified 09/04/20 17:34 naproxen Allergy Rash Verified 09/04/20 17:34 Home Meds: Home Meds QUEtiapine [SEROquel XR] 50 mg PO BEDTIME 11/17/16 [History] Venlafaxine [Effexor] 37.5 mg PO BID 01/10/18 [History] Zolpidem [Ambien] 5 mg PO BEDTIME PRN 12/04/18 [History] clonazePAM [Clonazepam] 1 tab PO BID PRN 05/09/19 [History] Gabapentin [Neurontin] 300 mg PO BID 04/17/20 [History] traZODone 50 mg PO BEDTIME 07/23/20 [History] Past Medical History HEENT History: Reports: Impaired Vision, Other (See Below) Other HEENT History: Severe dental carries. 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, Musculoskeletal History: Reports: Arthritis, Fracture Other Musculoskeletal History: left knee total replacement Neurological History: Reports: Migraines Psychiatric History: Reports: Anxiety, Depression Oncologic (Cancer) History: Reports: None - Infectious Disease History Infectious Disease History: Reports: Chicken Pox, Measles - Past Surgical History Head Surgeries/Procedures: Reports: None HEENT Surgical History: Reports: None Cardiovascular Surgical History: Reports: None Respiratory Surgical History: Reports: None GI Surgical History: Reports: Appendectomy Female Surgical History: Reports: Hysterectomy Endocrine Surgical History: Reports: None Neurological Surgical History: Reports: None Musculoskeletal Surgical History: Reports: Carpal Tunnel, Knee Replacement, Other (See Below) Other Musculoskeletal Surgeries/Procedures:: left knee replacement. right toe surgery. fractures ribs 01/2020 Oncologic Surgical History: Reports: Biopsy of Breast Dermatological Surgical History: Reports: None Social & Family History - Family History Cardiac: Reports: [place] - Tobacco Use Tobacco Use Status *Q: Current Every Day Tobacco User Years of Tobacco use: 30 Packs/Tins Daily: 0.5 - Caffeine Use Caffeine Use: Reports: Soda Review of Systems - Review of Systems Review Of Systems: See Below Constitutional: Reports: No Symptoms Eyes: Reports: No Symptoms Ears: Reports: No Symptoms Nose: Reports: No Symptoms Mouth/Throat: Reports: No Symptoms Respiratory: Reports: No Symptoms Cardiovascular: Reports: No Symptoms GI/Abdominal: Reports: No Symptoms Genitourinary: Reports: No Symptoms Musculoskeletal: Reports: Other (left arm pain from 3rd degree carpal tunnel ) Skin: Reports: No Symptoms Neurological: Reports: Numbness (left arm), Tingling Psychiatric: Reports: No Symptoms ED EXAM, GENERAL - Physical Exam Exam: See Below Exam Limited By: No Limitations General Appearance: Alert, WD/WN, No Apparent Distress Head: Atraumatic, Normocephalic Neck: Normal Inspection, Supple, Non-Tender, Full Range of Motion. No: Lymphadenopathy (R), Lymphadenopathy (L) Respiratory/Chest: No Respiratory Distress, Lungs Clear, Normal Breath Sounds, No Accessory Muscle Use, Chest Non-Tender. No: Decreased Breath Sounds, Crackles, Rales, Rhonchi, Wheezing Cardiovascular: Normal Peripheral Pulses, Regular Rate, Rhythm, No Edema, No Gallop, No Murmur, No Rub Peripheral Pulses: 2+: Radial (L), Radial (R) Back Exam: Normal Inspection, Full Range of Motion. No: CVA Tenderness (R), CVA Tenderness (L) Extremities: No Pedal Edema, Normal Capillary Refill, Arm Pain (left arm pain with ROM, sensation intact) Neurological: Alert, Oriented, CN II-XII Intact, Normal Cognition, Normal Gait, Normal Reflexes, No Motor/Sensory Deficits Psychiatric: Normal Affect, Normal Mood Skin Exam: Warm, Dry, Intact, Normal Color, No Rash Lymphatic: No Adenopathy Course - Vital Signs Last Recorded V/S: Last Vital Signs Temp 36.6 C 09/04/20 17:40 Pulse 99 09/04/20 17:40 Resp 16 09/04/20 17:40 BP 130/91 H 09/04/20 17:40 Pulse Ox 99 09/04/20 17:40 - Re-Assessments/Exams Free Text/Narrative Re-Assessment/Exam: [place] BUSINESS TRANSFORMATION CONSULTANT reviewed, noted ongoing fills of clonazepam, ambien, hydrocodone. Patient reports use of gabapentin. Risk score per BUSINESS TRANSFORMATION CONSULTANT 430. Patient advised of findings. She can take acetaminophen, current medications, wear wrist brace as directed to help with pain. She is at risk for respiratory depression due to multiple medications used. Departure - Departure Time of Disposition: 18:09 Disposition: Home, Self-Care 01 Condition: Good Clinical Impression: Carpal tunnel syndrome, left - Discharge Information *PRESCRIPTION DRUG MONITORING PROGRAM REVIEWED*: Yes *COPY OF PRESCRIPTION DRUG MONITORING REPORT IN PATIENT FABIAN: No Instructions: Carpal Tunnel Syndrome, [id number] Referrals: Familia Lomax MD [Primary Care Provider] - Forms: ED Department Discharge Additional Instructions: You have been evaluated and treated for chronic pain to left arm/wrist due to carpal tunnel syndrome. You can take acetaminophen for pain as well as medrol dose pack. Continue your current medications. Follow up with primary provider tomorrow and let them know your pain is not controlled well with current medications. It is not safe for you to take any additional narcotic medications with your current medications - none prescribed today. Return for any worsening, issues or concerns. Sepsis Event Note (ED) - Evaluation Sepsis Screening Result: No Definite Risk - Focused Exam Vital Signs: Vital Signs Temp Pulse Resp BP Pulse Ox 09/04/20 17:40 36.6 C 99 16 130/91 H 99 09/04/20 17:31 36.6 C 99 16 130/91 H 99 - Assessment/Plan Plan: Patient evaluated and treated for chronic pain to left arm/wrist due to carpal tunnel syndrome. You can take acetaminophen for pain as well as medrol dose pack. Continue your current medications. Follow up with primary provider tomorrow and let them know your pain is not controlled well with current medications. It is not safe for you to take any additional narcotic medications with your current medications - none prescribed today. Return for any worsening, issues or concerns.
== END 2020-09-04 18:27 | disposition home or self-care (01) ==
LOC: JP.ED 17:22
DX: G56.02 Carpal tunnel syndrome, left upper limb (principal); Z88.1 Allergy status to other antibiotic agents; Z88.5 Allergy status to narcotic agent; Z72.0 Tobacco use
CPT/HCPCS: 99283

== ENCOUNTER 2020-11-25 21:59 | Emergency (ER) | payer MEDICAID ==
[2020-11-25 22:18] VITALS: BP 127/83; PULSE 98
--- NOTE | 2020-11-25 22:40 | EDM.PDOC ---
ED HPI GENERAL MEDICAL PROBLEM - General Chief Complaint: Wound Recheck Stated Complaint: L HAND PAIN - POST CARPAL TUNNEL SURGERY 11/11 Time Seen by Provider: 11/25/20 22:25 Source of Information: Reports: Patient, Old Records, RN History Limitations: Reports: No Limitations - History of Present Illness INITIAL COMMENTS - FREE TEXT/NARRATIVE: 60 yo female had carpal tunnel release by Dr. Pastor a couple weeks ago. She has had increase pain over the past few days not associated with injury. She gets partial relief with ibuprofen. She was on [place] earlier in her course with good relief. Has not reached out to any of her doctors in the past few days. Says she no longer has a pain contract with her doctor. Dr. Lomax is her primary. 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 Left Hand Pain Score (Numeric/FACES): 8 - Related Data Allergies Allergy/AdvReac Type Severity Reaction Status Date / Time cephalexin [From Keflex] Allergy Rash Verified 11/25/20 22:15 naproxen Allergy Rash Verified 11/25/20 22:15 Home Meds: Home Meds QUEtiapine [SEROquel XR] 50 mg PO BEDTIME 11/17/16 [History] Venlafaxine [Effexor] 37.5 mg PO BID 01/10/18 [History] Zolpidem [Ambien] 5 mg PO BEDTIME PRN 12/04/18 [History] clonazePAM [Clonazepam] 1 tab PO BID PRN 05/09/19 [History] Gabapentin [Neurontin] 300 mg PO BID 04/17/20 [History] traZODone 50 mg PO BEDTIME 07/23/20 [History] Past Medical History HEENT History: Reports: Impaired Vision, Other (See Below) Other HEENT History: Severe dental carries. 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, Musculoskeletal History: Reports: Arthritis, Fracture Other Musculoskeletal History: left knee total replacement Neurological History: Reports: Migraines Psychiatric History: Reports: Anxiety, Depression Oncologic (Cancer) History: Reports: None - Infectious Disease History Infectious Disease History: Reports: Chicken Pox, Measles - Past Surgical History Head Surgeries/Procedures: Reports: None HEENT Surgical History: Reports: None Cardiovascular Surgical History: Reports: None Respiratory Surgical History: Reports: None GI Surgical History: Reports: Appendectomy Female Surgical History: Reports: Hysterectomy Endocrine Surgical History: Reports: None Neurological Surgical History: Reports: None Musculoskeletal Surgical History: Reports: Carpal Tunnel, Knee Replacement, Other (See Below) Other Musculoskeletal Surgeries/Procedures:: left knee replacement. right toe surgery. fractures ribs 01/2020 Oncologic Surgical History: Reports: Biopsy of Breast Dermatological Surgical History: Reports: None Social & Family History - Family History Cardiac: Reports: [place] - Tobacco Use Tobacco Use Status *Q: Current Every Day Tobacco User Years of Tobacco use: 16 Packs/Tins Daily: 0.5 - Caffeine Use Caffeine Use: Reports: Soda Caffeine Use Comment: roman garcía - Recreational Drug Use Recreational Drug Use: No ED ROS GENERAL - Review of Systems Review Of Systems: See Below Constitutional: Reports: No Symptoms Musculoskeletal: Reports: Hand Pain (L hand) Skin: Reports: No Symptoms Neurological: Reports: Numbness (L hand) ED EXAM, SKIN/RASH Exam: See Below Exam Limited By: No Limitations General Appearance: Alert, WD/WN, No Apparent Distress Extremities: Normal Inspection, Normal Range of Motion, No Pedal Edema. No: Pedal Edema, Increased Warmth, Redness Neurological: Alert, Oriented, CN II-XII Intact, Normal Cognition, No Motor/Sensory Deficits Psychiatric: Normal Affect, Normal Mood Skin: Warm, Dry, Intact, Normal Color, No Rash, Other (surgical wound is well healed. ). No: Diaphoretic, Ecchymosis, Erythema, Increased Warmth Location, Skin: Upper Extremity, Left Associated features: No: Warmth, Lymphangitis Course - Vital Signs Last Recorded V/S: Last Vital Signs Temp 36.5 C 11/25/20 22:20 Pulse 98 11/25/20 22:20 Resp 16 11/25/20 22:20 BP 127/83 11/25/20 22:20 Pulse Ox 94 L 11/25/20 22:20 Departure - Departure Time of Disposition: 22:45 Disposition: Home, Self-Care 01 Condition: Good Clinical Impression: Post-op pain - Discharge Information *PRESCRIPTION DRUG MONITORING PROGRAM REVIEWED*: No *COPY OF PRESCRIPTION DRUG MONITORING REPORT IN PATIENT FABIAN: No Instructions: Wound Check Referrals: Familia Lomax MD [Primary Care Provider] - Additional Instructions: Continue your ibuprofen, Add [place] as needed. Call your doctor(s) on Saturday regarding your status. Sepsis Event Note (ED) - Evaluation Sepsis Screening Result: No Definite Risk - Focused Exam Vital Signs: Vital Signs Temp Pulse Resp BP Pulse Ox 11/25/20 22:20 36.5 C 98 16 127/83 94 L 11/25/20 22:16 36.5 C 98 16 127/83 94 L
== END 2020-11-25 23:03 | disposition home or self-care (01) ==
LOC: JP.ED 21:59
DX: G89.18 Other acute postprocedural pain (principal); M79.642 Pain in left hand; Z72.0 Tobacco use; Z88.1 Allergy status to other antibiotic agents; Z88.5 Allergy status to narcotic agent
CPT/HCPCS: 99283

== ENCOUNTER 2020-12-23 21:42 | Emergency (ER) | payer MEDICAID ==
[2020-12-23 22:19] VITALS: BP 129/88; PULSE 80
--- NOTE | 2020-12-23 23:09 | EDM.PDOC ---
ED HPI GENERAL MEDICAL PROBLEM - General Chief Complaint: Upper Extremity Injury/Pain Stated Complaint: ISSUES WITH HAND Time Seen by Provider: 12/23/20 22:50 Source of Information: Reports: Patient, RN Notes Reviewed History Limitations: Reports: No Limitations, Other ([place] COMPOUND MACHINE OPERATOR reviewed) - History of Present Illness INITIAL COMMENTS - FREE TEXT/NARRATIVE: Vonda presents today for complaints of ongoing right wrist/hand pain that radiates up her left arm. She states the pain has been ongoing for several months. She had carpal tunnel surgery and has had pain ever since. She states she stopped PT because of pain, she has had x-rays, MRI, US and attempted needle aspirations x 2 by orthopedics. She states she has not had any hydrocodone for 3 weeks. She states she cannot take ibuprofen because it causes diarrhea. She denies any recent injury, trauma, fever, chills, nausea, vomiting, change in bowel/bladder or other concerns. - Related Data Allergies Allergy/AdvReac Type Severity Reaction Status Date / Time cephalexin [From Keflex] Allergy Rash Verified 12/23/20 22:32 naproxen Allergy Rash Verified 12/23/20 22:32 Home Meds: Home Meds Zolpidem [Ambien] 5 mg PO BEDTIME PRN 12/04/18 [History] clonazePAM [Clonazepam] 1 tab PO BID PRN 05/09/19 [History] Gabapentin [Neurontin] 300 mg PO BID 04/17/20 [History] Venlafaxine HCl 150 mg PO BID 12/23/20 [History] traZODone 100 mg PO BEDTIME 12/23/20 [History] Past Medical History HEENT History: Reports: Impaired Vision, Other (See Below) Other HEENT History: Severe dental carries. 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, Musculoskeletal History: Reports: Arthritis, Fracture Other Musculoskeletal History: left knee total replacement Neurological History: Reports: Migraines Psychiatric History: Reports: Anxiety, Depression Oncologic (Cancer) History: Reports: None - Infectious Disease History Infectious Disease History: Reports: Chicken Pox, Measles - Past Surgical History Head Surgeries/Procedures: Reports: None HEENT Surgical History: Reports: None Cardiovascular Surgical History: Reports: None Respiratory Surgical History: Reports: None GI Surgical History: Reports: Appendectomy Female Surgical History: Reports: Hysterectomy Endocrine Surgical History: Reports: None Neurological Surgical History: Reports: None Musculoskeletal Surgical History: Reports: Carpal Tunnel, Knee Replacement, Other (See Below) Other Musculoskeletal Surgeries/Procedures:: left knee replacement. right toe surgery. fractures ribs 01/2020 Oncologic Surgical History: Reports: Biopsy of Breast Dermatological Surgical History: Reports: None Social & Family History - Family History Cardiac: Reports: [place] - Tobacco Use Tobacco Use Status *Q: Current Every Day Tobacco User Years of Tobacco use: 40 Packs/Tins Daily: 0.5 - Caffeine Use Caffeine Use: Reports: None Caffeine Use Comment: roman garcía - Recreational Drug Use Recreational Drug Use: No Review of Systems - Review of Systems Review Of Systems: See Below Constitutional: Reports: No Symptoms Eyes: Reports: No Symptoms Ears: Reports: No Symptoms Nose: Reports: No Symptoms Mouth/Throat: Reports: No Symptoms Respiratory: Reports: No Symptoms Cardiovascular: Reports: No Symptoms GI/Abdominal: Reports: No Symptoms Genitourinary: Reports: No Symptoms Musculoskeletal: Reports: Other (left wrist/hand pain radiating up arm, burning sensation. ) Skin: Reports: No Symptoms Neurological: Denies: Numbness, Paresthesia, Tingling, Weakness Psychiatric: Reports: No Symptoms ED EXAM, GENERAL - Physical Exam Exam: See Below Exam Limited By: No Limitations General Appearance: Alert, WD/WN, No Apparent Distress Head: Atraumatic, Normocephalic Respiratory/Chest: No Respiratory Distress, Lungs Clear, Normal Breath Sounds, No Accessory Muscle Use, Chest Non-Tender. No: Crackles, Rales, Rhonchi, Wheezing, Stridor Cardiovascular: Normal Peripheral Pulses, Regular Rate, Rhythm, No Edema, No Gallop, No Murmur, No Rub Peripheral Pulses: 4+: Radial (L), Radial (R) Back Exam: Normal Inspection, Full Range of Motion. No: CVA Tenderness (R), CVA Tenderness (L) Extremities: Normal Inspection, No Pedal Edema, Normal Capillary Refill, Limited Range of Motion (to left wrist/hand due to pain). No: Increased Warmth, Pallor, Redness Neurological: Alert, Oriented, Normal Cognition, Normal Gait, No Motor/Sensory Deficits Psychiatric: Normal Affect, Normal Mood Skin Exam: Warm, Dry, Intact, Normal Color, No Rash. No: Cyanosis, Ecchymosis, Erythema, Increased Warmth, Mottled, Pallor, Petechiae, Rash, Wound/Incision, Zoster-Like Rash Lymphatic: No Adenopathy Course - Vital Signs Last Recorded V/S: Last Vital Signs Temp 36.4 C 12/23/20 22:39 Pulse 80 12/23/20 22:39 Resp 16 12/23/20 22:39 BP 129/88 12/23/20 22:39 Pulse Ox 96 12/23/20 22:39 - Orders/Labs/Meds Labs: Laboratory Tests 12/23/20 Range/Units 23:20 WBC 12.8 H (4.5-11.0) K/uL RBC 4.83 (3.30-5.50) M/uL Hgb 15.8 H D (12.0-15.0) g/dL Hct 47.5 (36.0-48.0) % MCV 98 (80-98) fL MCH 33 H (27-31) pg MCHC 33 (32-36) % Plt Count 344 (150-400) K/uL Neut % (Auto) 55.8 (36-66) % Lymph % (Auto) 36.1 (24-44) % [place] % (Auto) 6.8 H (2-6) % Eos % (Auto) 0.8 L (2-4) % Baso % (Auto) 0.5 (0-1) % No acute findings, patient notified. A print out of [place] COMPOUND MACHINE OPERATOR was reviewed with her. She was advised it is not safe for her or beneficial for her to take additional narcotics with concurrent use of benzodiazepine and zolpidem. Patient describes pain as burning. We will try use of carbamazepine to help with pain control and discharge to home. She is instructed to follow her orthopedic providers recommendations for ROM and care. All of her questions were answered, she is in agreement with plan. Meds: Medications Discontinued Medications Generic Name Dose Route Start Last Admin Trade Name Freq PRN Reason Stop Dose Admin Carbamazepine 100 mg 12/23/20 23:19 Carbamazepine 100 Mg/5 Ml Susp Ml 450 Ml Bottle PO 12/23/20 23:20 ONETIME ONE Carbamazepine not available here in facility, patient offered a ketorolac IM injection, she declined. - Re-Assessments/Exams Free Text/Narrative Re-Assessment/Exam: 12/23/20 23:20 [place] COMPOUND MACHINE OPERATOR reveiwed, patient stated she hasnot had any hydrocodone for the past three weeks. Per COMPOUND MACHINE OPERATOR she filled hydrocodone 5/325mg #4 tabs on 12/12/2020, #20 tabs hydrocodone 5/325mg on 12/09/2020 and #8 tabs hydrocodone 5/325mg on 12/07/2020. Additional previous fills on 11/26/2020, 11/16/2020, 11/09/2020, 10/12/2020 and back to 04/18/2020. Departure - Departure Time of Disposition: 23:42 Disposition: Home, Self-Care 01 Condition: Good Clinical Impression: Chronic pain of left wrist - Discharge Information *PRESCRIPTION DRUG MONITORING PROGRAM REVIEWED*: Yes *COPY OF PRESCRIPTION DRUG MONITORING REPORT IN PATIENT FABIAN: Yes Instructions: Managing Pain Without Opioids, Chronic Pain, Adult Referrals: Familia Lomax MD [Primary Care Provider] - Forms: ED Department Discharge Additional Instructions: You have been evaluated and treated for ongoing pain of your left wrist status post carpal tunnel surgery many weeks ago. Use of NSAIDs, acetaminophen, hydrocodone have not controlled your pain well. Try use of carbamazepine 100mg by mouth twice per day for carpal tunnel/chronic wrist pain. Follow up with orthopedics as scheduled. Follow orthopedic recommendations for movement and use of your left hand/wrist. Return for any worsening, issues or concerns. Sepsis Event Note (ED) - Evaluation Sepsis Screening Result: No Definite Risk - Focused Exam Vital Signs: Vital Signs Temp Pulse Resp BP Pulse Ox 12/23/20 22:39 36.4 C 80 16 129/88 96 12/23/20 22:17 36.4 C 80 16 129/88 96 - Assessment/Plan Assessment:: Chronic pain of left wrist No acute findings, patient notified. Patient originally reported she has not had hydrocodone for 3 weeks. [place] COMPOUND MACHINE OPERATOR reveiwed, patient stated she has not had any hydrocodone for the past three weeks. Per COMPOUND MACHINE OPERATOR she filled hydrocodone 5/325mg #4 tabs on 12/12/2020, #20 tabs hydrocodone 5/325mg on 12/09/2020 and #8 tabs hydrocodone 5/325mg on 12/07/2020. Additional previous fills on 11/26/2020, 11/16/2020, 11/09/2020, 10/12/2020 and back to 04/18/2020. A print out of [place] COMPOUND MACHINE OPERATOR was reviewed with her. She was advised it is not safe for her or beneficial for her to take additional narcotics with concurrent use of benzodiazepine and zolpidem. Patient describes pain as burning. We will try use of carbamazepine to help with pain control and discharge to home. She is instructed to follow her orthopedic providers recommendations for ROM and care. All of her questions were answered, she is in agreement with plan. Plan: Patient evaluated and treated for ongoing pain of your left wrist status post carpal tunnel surgery many weeks ago. Use of NSAIDs, acetaminophen, hydrocodone have not controlled her pain well. Try use of carbamazepine 100mg by mouth twice per day for carpal tunnel/chronic wrist pain. Follow up with orthopedics as scheduled. Follow orthopedic recommendations for movement and use of left hand/wrist. Return for any worsening, issues or concerns.
[2020-12-23] MEDS ORDERED: carBAMazepine 100 MG/5 ML Susp ML 450 ML Bottle PO ONE (23:19)
== END 2020-12-24 | disposition home or self-care (01) ==
LOC: JP.ED 21:42
DX: G89.29 Other chronic pain (principal); M25.532 Pain in left wrist; M19.90 Unspecified osteoarthritis, unspecified site; Z72.0 Tobacco use; Z88.1 Allergy status to other antibiotic agents; Z88.6 Allergy status to analgesic agent; Z79.899 Other long term (current) drug therapy
CPT/HCPCS: 36415; 85025; 99283; A9270-GY

== ENCOUNTER 2021-01-18 14:21 | Emergency (ER) | payer MEDICAID ==
--- NOTE | 2021-01-18 15:00 | EDM.PDOC ---
ED HPI GENERAL MEDICAL PROBLEM - General Chief Complaint: Respiratory Problem Stated Complaint: FROM CLINIC Time Seen by Provider: 01/18/21 14:49 Source of Information: Reports: Patient, Old Records History Limitations: Reports: No Limitations - History of Present Illness INITIAL COMMENTS - FREE TEXT/NARRATIVE: 60-year-old female with comorbidities and multiple medications was seen in the doctor's office today because she developed a cough 4 days ago which is persistent nonproductive followed by headache which has been persistent throbbing the front part of her brain or head for the last 2 days and was evaluated. Apparently felt to have pneumonia and parenthetically a nodule was noted in the chest with recommendation for CT at a later date. Laboratory was reviewed and the patient was started on a prescription for antibiotics and to be sent home and then noted by the PMD to have a calcium of over 12 and sent in here for fluids and evaluation of the elevated calcium. She described to me her cough history and headache and generally not feeling well. On review of systems I did not find much except for the cough but when the urine is retrieved by the nurse she notes it is very cloudy. She did note any urinary symptoms to me. knees head chest Pain Score (Numeric/FACES): 8 - Related Data Allergies Allergy/AdvReac Type Severity Reaction Status Date / Time cephalexin [From Keflex] Allergy Rash Verified 01/18/21 14:45 naproxen Allergy Rash Verified 01/18/21 14:45 Home Meds: Home Meds Zolpidem [Ambien] 5 mg PO BEDTIME PRN 12/04/18 [History] clonazePAM [Clonazepam] 1 tab PO BID PRN 05/09/19 [History] Gabapentin [Neurontin] 300 mg PO BID 04/17/20 [History] Venlafaxine HCl 150 mg PO BID 12/23/20 [History] traZODone 100 mg PO BEDTIME 12/23/20 [History] Past Medical History HEENT History: Reports: Impaired Vision, Other (See Below) Other HEENT History: Severe dental carries. 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, Musculoskeletal History: Reports: Arthritis, Fracture Other Musculoskeletal History: left knee total replacement Neurological History: Reports: Migraines Psychiatric History: Reports: Anxiety, Depression Oncologic (Cancer) History: Reports: None - Infectious Disease History Infectious Disease History: Reports: Chicken Pox, Measles - Past Surgical History Head Surgeries/Procedures: Reports: None HEENT Surgical History: Reports: None Cardiovascular Surgical History: Reports: None Respiratory Surgical History: Reports: None GI Surgical History: Reports: Appendectomy Female Surgical History: Reports: Hysterectomy Endocrine Surgical History: Reports: None Neurological Surgical History: Reports: None Musculoskeletal Surgical History: Reports: Carpal Tunnel, Knee Replacement, Other (See Below) Other Musculoskeletal Surgeries/Procedures:: left knee replacement. right toe surgery. fractures ribs 01/2020 Oncologic Surgical History: Reports: Biopsy of Breast Dermatological Surgical History: Reports: None Social & Family History - Family History Cardiac: Reports: [place] - Tobacco Use Tobacco Use Status *Q: Current Every Day Tobacco User Years of Tobacco use: 13 Packs/Tins Daily: 0.5 - Caffeine Use Caffeine Use: Reports: None Caffeine Use Comment: roman garcía - Recreational Drug Use Recreational Drug Use: No ED ROS GENERAL - Review of Systems Review Of Systems: Comprehensive ROS is negative, except as noted in HPI. ED EXAM, GENERAL - Physical Exam Exam: See Below Free Text/Narrative:: Alert cooperative female lying on the gurney with periodic coarse cough nonproductive in nature noted to be tachycardic vital signs otherwise okay HEENT eyes ears nose and throat appear to be normal face is nontender hearing is okay scalp and skull are nontender Neck is supple normal range of motion chest has coarse rhonchi and rattles throughout without retractions. Regular rate and rhythm at a rapid pace. Abdomen soft active bowel sounds slight tender in the epigastric area Abdomen Extremities no deformity or edema scars noted of the knees from prior knee replacements Neurologic physiologic DTR and tone Exam Limited By: No Limitations Course - Vital Signs Text/Narrative:: Patient presents with a high calcium from an office visit lab report of 12+. She also gives me the history of her headaches cough and the CT which showed some nodule for later evaluation. She would like me to CT her chest now which I think is reasonable and that she does have possible pneumonia. She also may have urinary tract infection based upon the appearance of her urine. She did not get any antibiotics were prescribed in the office today. I was going to give her cephalosporins but she is allergic to Keflex. I then looked Zosyn but there was question about cross-reactivity with Keflex. I looked at Cipro but there is a interaction with her trazodone or other medications that could be a problem. Seem like the last risk was with the Zosyn and so that has been ordered and observation is carefully while initiating that. No penicillin history is noted. She feels badly and think she would like to stay if possible About 6:00 PM and she is feeling better. Urine shows some bacteria but no nitrites or leukocyte esterases. The CAT scan of her chest does not show any changes although not been there before or notable pneumonias. We have no beds available here. She does not really need to stay. She will be discharged to get the antibiotics prescribed by her doctor earlier today and return here if necessary and follow-up with her physician Patient did get Zosyn without any ill side effects or interactions with Keflex prescription allergy Last Recorded V/S: Last Vital Signs Temp 36.5 C 01/18/21 14:40 Pulse 66 01/18/21 17:48 Resp 20 01/18/21 14:40 BP 102/58 L 01/18/21 17:48 Pulse Ox 92 L 01/18/21 17:48 - Orders/Labs/Meds Orders: Active Orders 24 hr Category Date Time Status CULTURE BLOOD [BC] Stat Lab 01/18/21 16:00 Received CULTURE URINE [RM] Stat Lab 01/18/21 15:54 Received Iopamidol [Isovue-300 (61%)] Med 01/18/21 16:15 Active 100 ml IV . DIRECTED Piperacillin/Tazobactam [Zosyn] 3.375 gm Med 01/18/21 16:00 Active Sodium Chloride 0.9% [Normal Saline] 50 ml IV ONETIME Sodium Chloride 0.9% [Normal Saline] 80 ml Med 01/18/21 16:15 Active IV ASDIRECTED EKG 12 Lead [EK] Stat Ther 01/18/21 15:52 Ordered Medication Orders Piperacillin Sod/Tazobactam (Sod 3.375 gm/ Sodium Chloride) 50 mls @ 100 mls/hr IV ONETIME KEITH Last Admin: 01/18/21 16:17 Dose: 100 mls/hr Documented by: PREILOR Sodium Chloride (Normal Saline) 80 mls @ 3 mls/sec IV ASDIRECTED KEITH Last Admin: 01/18/21 16:40 Dose: 3 mls/sec Documented by: ALVERTO Iopamidol (Iopamidol 612 Mg/Ml 100 Ml Bottle) 100 ml IV . DIRECTED KEITH Last Admin: 01/18/21 16:40 Dose: 100 ml Documented by: ALVERTO Labs: Laboratory Tests 01/18/21 01/18/21 01/18/21 Range/Units 15:55 15:56 16:00 Lactic Acid 1.1 (0.4-2.0) mmol/L C-Reactive Protein 0.83 H (0.0-0.3) mg/dL Urine Color Yellow (YELLOW) Urine Appearance Cloudy A (CLEAR) Urine pH 7.0 (5.0-8.0) Ur Specific Ackley 1.015 (1.008-1.030) Urine Protein Negative (NEGATIVE) mg/dL Urine Glucose (UA) Negative (NEGATIVE) mg/dL Urine Ketones Negative (NEGATIVE) mg/dL Urine Occult Blood Negative (NEGATIVE) Urine Nitrite Negative (NEGATIVE) Urine Bilirubin Negative (NEGATIVE) Urine Urobilinogen 0.2 (0.2-1.0) EU/dL Ur Leukocyte Esterase Negative (NEGATIVE) Urine RBC Not seen (0-5) Urine WBC 0-5 (0-5) Ur Epithelial Cells Few Amorphous Sediment Not seen Urine Bacteria Many Urine Mucus Not seen Meds: Medications Generic Name Dose Route Start Last Admin Trade Name Freq PRN Reason Stop Dose Admin Piperacillin Sod/Tazobactam 50 mls @ 100 mls/hr 01/18/21 16:00 01/18/21 16:17 Sod 3.375 gm/ Sodium Chloride IV 100 mls/hr ONETIME KEITH Administration Sodium Chloride 80 mls @ 3 mls/sec 01/18/21 16:15 01/18/21 16:40 Normal Saline IV 3 mls/sec ASDIRECTED KEITH Administration Iopamidol 100 ml 01/18/21 16:15 01/18/21 16:40 Iopamidol 612 Mg/Ml 100 Ml Bottle IV 100 ml . DIRECTED KEITH Administration Discontinued Medications Generic Name Dose Route Start Last Admin Trade Name Freq PRN Reason Stop Dose Admin Droperidol 0.625 mg 01/18/21 16:35 01/18/21 16:47 Droperidol 5 Mg/2 Ml Sdv IVPUSH 01/18/21 16:36 0.625 mg ONETIME ONE Administration Sodium Chloride 1,000 mls @ 1,000 mls/hr 01/18/21 15:40 01/18/21 16:15 Normal Saline IV 01/18/21 16:39 1,000 mls/hr .BOLUS ONE Administration Departure - Departure Time of Disposition: 18:25 Disposition: Home, Self-Care 01 Condition: Good Clinical Impression: Pneumonia - Discharge Information Referrals: Familia Lomax MD [Primary Care Provider] - Forms: ED Department Discharge Additional Instructions: Follow-up with your physician tomorrow next day for any continuing or worse symptoms or return here. Take antibiotics as prescribed by Sepsis Event Note (ED) - Focused Exam Vital Signs: Vital Signs Temp Pulse Resp BP Pulse Ox 01/18/21 17:48 66 102/58 L 92 L 01/18/21 17:21 67 95/57 L 93 L 01/18/21 16:39 78 123/78 01/18/21 14:40 36.5 C 102 H 20 127/77 94 L - My Orders Last 24 Hours: My Active Orders 01/18/21 15:52 EKG 12 Lead [EK] Stat 01/18/21 15:54 CULTURE URINE [RM] Stat 01/18/21 16:00 CULTURE BLOOD [BC] Stat Piperacillin/Tazobactam [Zosyn] 3.375 gm Sodium Chloride 0.9% [Normal Saline] 50 ml IV ONETIME 01/18/21 16:15 Iopamidol [Isovue-300 (61%)] 100 ml IV . DIRECTED Sodium Chloride 0.9% [Normal Saline] 80 ml IV ASDIRECTED - Assessment/Plan Last 24 Hours: My Active Orders 01/18/21 15:52 EKG 12 Lead [EK] Stat 01/18/21 15:54 CULTURE URINE [RM] Stat 01/18/21 16:00 CULTURE BLOOD [BC] Stat Piperacillin/Tazobactam [Zosyn] 3.375 gm Sodium Chloride 0.9% [Normal Saline] 50 ml IV ONETIME 01/18/21 16:15 Iopamidol [Isovue-300 (61%)] 100 ml IV . DIRECTED Sodium Chloride 0.9% [Normal Saline] 80 ml IV ASDIRECTED
[2021-01-18] MEDS ORDERED: Sodium Chloride 0.9% 1,000 ML IV ONE (15:40)
[2021-01-18] MEDS ORDERED: Piperacillin/Tazobactam 3.375 GM in Sodium Chloride 0.9% 50 ML IV SCH (16:00)
[2021-01-18] MEDS ORDERED: Sodium Chloride 0.9% 80 ML IV SCH (16:15)
[2021-01-18] MEDS ORDERED: Iopamidol 612 MG/ML 100 ML Bottle IV SCH (16:15)
--- NOTE | 2021-01-18 17:48 | CRLCT ---
For Patients: As a result of the Century Cures Act, medical imaging exams and procedure reports are released immediately into your electronic medical record. You may view this report before your referring provider. If you have questions, please contact your health care provider. Indication: Possible pneumonia on chest x-ray and lung mass Technique: Contrast enhanced CT chest with 100 mL Isovue-300 Comparison: CT chest 04/08/2020 Findings: Slightly 1.7 x 2.3 centimeter pleural-based left upper lobe mass without significant change measured on series 3, image 56 apical fibrotic change. Basilar atelectasis. No effusion. In the right superior neck just posterior to the trachea again seen is a 2 x 1.9 centimeters slightly heterogeneous lesion shows little change from 04/08/2020 as well. Mildly prominent mediastinal hilar lymph nodes. The heart size is normal. There is no pericardial effusion. Low-attenuation lesion in the left hepatic lobe also on changed. Thickening of both adrenal glands unchanged no discrete nodule no suspicious bony lesions are seen. Cyst in the left kidney Impression: 1. 1.7 x 2.3 centimeter pleural-based left upper lobe mass showing little change from 03/2020. Could consider PET-CT and continued follow-up. 2. 2 x 1.9 cm lesion within the right posterior neck unchanged as well from the prior study.This may represent an exophytic thyroid nodule. Follow up recommended. Please note that all CT scans at this facility use dose modulation, iterative reconstruction, and/or weight-based dosing when appropriate to reduce radiation dose to as low as reasonably achievable. Dictated by Elise Oliva MD @ 01/18/2021 5:34:17 PM (Electronically Signed)
[2021-01-18 17:49] VITALS: BP 102/58; PULSE 66
== END 2021-01-18 18:29 | disposition home or self-care (01) ==
LOC: JP.ED 14:21
DX: J18.9 Pneumonia, unspecified organism (principal); Z88.1 Allergy status to other antibiotic agents; Z88.5 Allergy status to narcotic agent; Z72.0 Tobacco use
CPT/HCPCS: 36415; 71260; 81001; 83605; 86140; 87040; 87086; 87088; 87186; 93005; 96365; 96375; 99284; J1790; J2543; J7030; Q9967

== ENCOUNTER 2021-04-01 15:52 | Emergency (ER) | payer MEDICAID ==
[2021-04-01 16:09] VITALS: BP 131/84; PULSE 87
--- NOTE | 2021-04-01 16:39 | EDM.PDOC ---
ED HPI GENERAL MEDICAL PROBLEM - General Chief Complaint: Back Pain or Injury Stated Complaint: FALL WITH LOWER BACK PAIN Time Seen by Provider: 04/01/21 16:20 Source of Information: Reports: Patient History Limitations: Reports: No Limitations - History of Present Illness INITIAL COMMENTS - FREE TEXT/NARRATIVE: 60-year-old female slipped on the ice landing on her lower back and knees 3 days ago, injuring her knees and her back. She was seen at the walk-in clinic, x- rays were done which were negative and she was given 6 hydrocodone. She has Toradol at home which is not helping, and had some muscle relaxers but "threw them away because they made her feel sick". She was told to come to the emergency room if she needed more pain control through the weekend. Onset: Gradual (Pain started gradually over 6 to 8 hours after falling) Location: Reports: Back (Especially lower back) Quality: Reports: Ache, Burning Worsens with: Reports: Other (More pain with ambulation), Movement Associated Symptoms: Reports: Malaise. Denies: Chest Pain, Cough, Shortness of Breath Bilateral Lower Back Pain Score (Numeric/FACES): 9 - Related Data Allergies Allergy/AdvReac Type Severity Reaction Status Date / Time cephalexin [From Keflex] Allergy Rash Verified 01/18/21 14:45 naproxen Allergy Rash Verified 01/18/21 14:45 Home Meds: Home Meds Zolpidem [Ambien] 5 mg PO BEDTIME PRN 12/04/18 [History] clonazePAM [Clonazepam] 1 tab PO BID PRN 05/09/19 [History] Gabapentin [Neurontin] 300 mg PO BID 04/17/20 [History] Venlafaxine HCl 150 mg PO BID 12/23/20 [History] traZODone 100 mg PO BEDTIME 12/23/20 [History] Acetaminophen/HYDROcodone [HYDROcodone-Acetaminophen 5-325 MG *] 1 tab PO Q4H PRN 04/01/21 [History] Past Medical History HEENT History: Reports: Impaired Vision, Other (See Below) Other HEENT History: Severe dental carries. 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, Musculoskeletal History: Reports: Arthritis, Fracture Other Musculoskeletal History: left knee total replacement Neurological History: Reports: Migraines Psychiatric History: Reports: Anxiety, Depression Oncologic (Cancer) History: Reports: None - Infectious Disease History Infectious Disease History: Reports: Chicken Pox, Measles - Past Surgical History Head Surgeries/Procedures: Reports: None HEENT Surgical History: Reports: None Cardiovascular Surgical History: Reports: None Respiratory Surgical History: Reports: None GI Surgical History: Reports: Appendectomy Female Surgical History: Reports: Hysterectomy Endocrine Surgical History: Reports: None Neurological Surgical History: Reports: None Musculoskeletal Surgical History: Reports: Carpal Tunnel, Knee Replacement, Other (See Below) Other Musculoskeletal Surgeries/Procedures:: left knee replacement. right toe surgery. fractures ribs 01/2020 Oncologic Surgical History: Reports: Biopsy of Breast Dermatological Surgical History: Reports: None Social & Family History - Family History Cardiac: Reports: [place] - Tobacco Use Tobacco Use Status *Q: Current Every Day Tobacco User Years of Tobacco use: 20 Packs/Tins Daily: 0.2 - Caffeine Use Caffeine Use: Reports: None Caffeine Use Comment: roman garcía ED ROS GENERAL - Review of Systems Review Of Systems: See Below Constitutional: Reports: Malaise. Denies: Fever, Chills HEENT: Reports: No Symptoms Respiratory: Reports: No Symptoms Cardiovascular: Reports: No Symptoms GI/Abdominal: Reports: No Symptoms : Reports: No Symptoms Musculoskeletal: Reports: Other (Also some bilateral knee pain which is improving) Skin: Denies: Bruising Neurological: Denies: Headache Psychiatric: Reports: No Symptoms ED EXAM,LOWER BACK PAIN/INJURY - Physical Exam Exam: See Below Exam Limited By: No Limitations General Appearance: Alert, No Apparent Distress (Looks uncomfortable but not distressed) Eye Exam: Bilateral Eye: Normal Inspection Head: Atraumatic Neck: Supple, Non-Tender Respiratory/Chest: Lungs Clear Cardiovascular: Regular Rate, Rhythm GI/Abdominal: Soft, Non-Tender Back Exam: Other (Lower back is very tender to palpation along the paralumbar muscles bilaterally, also complaining of some vertebral percussion tenderness) Extremities: Other (Some pulling sensation in the lower back with movement of the lower extremities passively) Neurological: Alert, No Motor/Sensory Deficits (No neurologic deficits, patient is able to ambulate) Psychiatric: Flat Affect Skin Exam: Warm, Decubitus Course - Vital Signs Last Recorded V/S: Last Vital Signs Temp 97.7 F 04/01/21 16:05 Pulse 87 04/01/21 16:05 Resp 16 04/01/21 16:05 BP 131/84 04/01/21 16:05 Pulse Ox 96 04/01/21 16:05 - Re-Assessments/Exams Free Text/Narrative Re-Assessment/Exam: 04/02/21 07:29 A [employer] search was done and the patient has only had 6 hydrocodone in the last couple of months despite good chart saying she is on a "pain contract". The patient denies she is on a pain contract at this time. She was given 8 hydrocodone for extra pain control over the next 48 hours, and any further narcotics must be obtained from her primary provider which she understands. She needs to increase activity as tolerated and continue with anti-inflammatories, she has Toradol at home. Recheck at the clinic in 5 to 7 days if not improving satisfactorily, a physical therapy consult may be warranted. Departure - Departure Time of Disposition: 16:42 Disposition: Home, Self-Care 01 Clinical Impression: Contusion of lower back Qualifiers: Encounter type: subsequent encounter Qualified Code(s): S30.0XXD - Contusion of lower back and pelvis, subsequent encounter - Discharge Information Instructions: Contusion, [id number] Referrals: Familia Lomax MD [Primary Care Provider] - Forms: ED Department Discharge Care Plan Goals: Continue with Toradol, increase activity as tolerated, and use hydrocodone sparingly over the next 2 days and recheck at the clinic if not improving satisfactorily. Sepsis Event Note (ED) - Evaluation Sepsis Screening Result: No Definite Risk
== END 2021-04-01 17:12 | disposition home or self-care (01) ==
LOC: JP.ED 15:52
DX: S30.0XXA Contusion of lower back and pelvis, initial encounter (principal); Z88.1 Allergy status to other antibiotic agents; Z88.6 Allergy status to analgesic agent; Z72.0 Tobacco use; W00.0XXA Fall on same level due to ice and snow, initial encounter
CPT/HCPCS: 99283

== ENCOUNTER 2021-04-13 18:12 | Emergency (ER) | payer MEDICAID ==
[2021-04-13 18:27] VITALS: BP 104/72; PULSE 111
--- NOTE | 2021-04-13 18:44 | EDM.PDOC ---
ED HPI GENERAL MEDICAL PROBLEM - General Chief Complaint: Neurological Problem Stated Complaint: DISORIENTED Time Seen by Provider: 04/13/21 18:16 Source of Information: Reports: Patient History Limitations: Reports: No Limitations - History of Present Illness INITIAL COMMENTS - FREE TEXT/NARRATIVE: Vonda is a 60-year-old female presenting to the ED with her daughter by private vehicle for evaluation of altered mental status (disorientation) last 3 days. Vonda's children have been trying to get a hold of her for the last 3 days and the family drove into [place] and with the assistance of law enforcement gained access to Vonda's apartment. They found her to be disheveled with food in her hair and disorganized. She has a history significant for mental illness for which she takes Seroquel 50 mg twice daily and a penchant for narcotic prescription medications with a history of overuse in the past. The kids are concerned that she may be overusing her narcotic pain meds. The patient reportedly has had increased episodes of falling stating that she feels off balance and there are fresh abrasions to the knees and left laurent. In addition to the disorientation, the patient also has a cough that is minimally productive. She does smoke a pack of cigarettes a day. She denies any fever, chills, headache, sore throat, significant nasal congestion or rhinorrhea, s hortness of breath, nausea, vomiting, or diarrhea. She does state that she feels off balance causing her falls. - Related Data Allergies Allergy/AdvReac Type Severity Reaction Status Date / Time cephalexin [From Keflex] Allergy Rash Verified 04/13/21 18:30 naproxen Allergy Rash Verified 04/13/21 18:30 Home Meds: Home Meds Zolpidem [Ambien] 5 mg PO BEDTIME PRN 12/04/18 [History] clonazePAM [Clonazepam] 1 tab PO BID PRN 05/09/19 [History] Gabapentin [Neurontin] 300 mg PO BID 04/17/20 [History] Venlafaxine HCl 150 mg PO BID 12/23/20 [History] traZODone 100 mg PO BEDTIME 12/23/20 [History] Acetaminophen/HYDROcodone [HYDROcodone-Acetaminophen 5-325 MG *] 1 tab PO Q4H PRN 04/01/21 [History] QUEtiapine [SEROquel] 25 mg PO BID 04/13/21 [History] Past Medical History HEENT History: Reports: Impaired Vision, Other (See Below) Other HEENT History: Severe dental carries. 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 SETTER History: Reports: Endometriosis, Musculoskeletal History: Reports: Arthritis, Fracture Other Musculoskeletal History: left knee total replacement Neurological History: Reports: Migraines Psychiatric History: Reports: Anxiety, Depression Oncologic (Cancer) History: Reports: None - Infectious Disease History Infectious Disease History: Reports: Chicken Pox, Measles - Past Surgical History Head Surgeries/Procedures: Reports: None HEENT Surgical History: Reports: None Cardiovascular Surgical History: Reports: None Respiratory Surgical History: Reports: None GI Surgical History: Reports: Appendectomy Female Surgical History: Reports: Hysterectomy Endocrine Surgical History: Reports: None Neurological Surgical History: Reports: None Musculoskeletal Surgical History: Reports: Carpal Tunnel, Knee Replacement, Other (See Below) Other Musculoskeletal Surgeries/Procedures:: left knee replacement. right toe surgery. fractures ribs 01/2020 Oncologic Surgical History: Reports: Biopsy of Breast Dermatological Surgical History: Reports: None Social & Family History - Family History Cardiac: Reports: IA - Caffeine Use Caffeine Use: Reports: None Caffeine Use Comment: roman ALVARADO GENERAL - Review of Systems Review Of Systems: See Below Constitutional: Reports: Chills HEENT: Reports: No Symptoms Respiratory: Reports: Cough Cardiovascular: Reports: No Symptoms Endocrine: Reports: No Symptoms GI/Abdominal: Reports: No Symptoms : Reports: No Symptoms Musculoskeletal: Reports: No Symptoms Skin: Reports: Wound (Abrasions to both knees and left anterior laurent) Neurological: Reports: Confusion, Gait Disturbance (Problems with balance causing repeated falls) Psychiatric: Reports: No Symptoms Hematologic/Lymphatic: Reports: No Symptoms Immunologic: Reports: No Symptoms - Physical Exam Exam: See Below Exam Limited By: No Limitations General Appearance: Alert, Anxious Eye Exam: Bilateral Eye: EOMI, PERRL Nose: Normal Inspection, Normal Mucosa Throat/Mouth: Normal Inspection, Normal Oropharynx, Normal Voice, No Airway Compromise Head Exam: Atraumatic, Normocephalic Neck: Normal Inspection, Supple, Non-Tender. No: Carotid Bruit, Lymphadenopathy (R), Lymphadenopathy (L) Respiratory/Chest: No Respiratory Distress, No Accessory Muscle Use, Rhonchi (Bibasilar) Cardiovascular: Normal Peripheral Pulses, Regular Rate, Rhythm, No Murmur GI/Abdominal: Normal Bowel Sounds, Soft, Non-Tender Neuro Exam (Abbreviated): Alert, Oriented, No Motor/Sensory Deficits, Slow to Respond Back Exam: Normal Inspection Extremities: Normal Inspection, Normal Range of Motion, No Pedal Edema, Normal Capillary Refill Psychiatric: Normal Affect, Normal Mood Skin Exam: Warm, Dry, Normal Color, No Rash, Wound/Incision (To bilateral knees and left lower laurent) Course - Vital Signs Last Recorded V/S: Last Vital Signs Temp 36.8 C 04/13/21 18:44 Pulse 111 H 04/13/21 18:44 Resp 15 04/13/21 18:44 BP 104/72 04/13/21 18:44 Pulse Ox 95 04/13/21 18:44 - Orders/Labs/Meds Orders: Active Orders 24 hr Category Date Time Status Head wo Cont [CT] Stat Exams 04/13/21 18:16 Taken COVID-19/FLU A+B/RSV [MOLEC] Stat Lab 04/13/21 18:44 Ordered CULTURE URINE [RM] Stat Lab 04/13/21 19:34 Ordered D-DIMER QUANTITATIVE [COAG] Stat Lab 04/13/21 18:28 Received PROCALCITONIN [CHEM] Stat Lab 04/13/21 18:28 Received Isolation [COMM] Stat Oth 04/13/21 18:19 Ordered Labs: Laboratory Tests 04/13/21 04/13/21 04/13/21 Range/Units 18:28 18:28 18:28 WBC 5.0 (4.5-11.0) K/uL RBC 4.80 (3.30-5.50) M/uL Hgb 15.5 H (12.0-15.0) g/dL Hct 47.4 (36.0-48.0) % MCV 99 H (80-98) fL MCH 32 H (27-31) pg MCHC 33 (32-36) % Plt Count 174 (150-400) K/uL Neut % (Auto) 52.1 (36-66) % Lymph % (Auto) 35.2 (24-44) % Coleman % (Auto) 12.3 H (2-6) % Eos % (Auto) 0.0 L (2-4) % Baso % (Auto) 0.4 (0-1) % Sodium 140 (140-148) mmol/L Potassium 3.3 L (3.6-5.2) mmol/L Chloride 103 (100-108) mmol/L Carbon Dioxide 29 (21-32) mmol/L Anion Gap 11.3 (5.0-14.0) mmol/L BUN 5 L D (7-18) mg/dL Creatinine 0.8 (0.6-1.0) mg/dL Est Cr Clr Drug Dosing 73.63 mL/min Estimated GFR (MDRD) > 60 (>60) Glucose 122 H (74-106) mg/dL Lactic Acid 1.1 (0.4-2.0) mmol/L Calcium 10.5 H (8.5-10.1) mg/dL Ferritin 343 (8-388) ng/ml Total Bilirubin 0.3 (0.2-1.0) mg/dL AST 42 H (15-37) U/L ALT 46 (12-78) U/L Alkaline Phosphatase 124 H (46-116) U/L Lactate Dehydrogenase 169 (82-234) U/L Total Protein 6.9 (6.4-8.2) g/dL Albumin 3.4 (3.4-5.0) g/dL Globulin 3.5 (2.3-3.5) g/dL Albumin/Globulin Ratio 1.0 L (1.2-2.2) Urine Color (YELLOW) Urine Appearance (CLEAR) Urine pH (5.0-8.0) Ur Specific Jackson (1.008-1.030) Urine Protein (NEGATIVE) mg/dL Urine Glucose (UA) (NEGATIVE) mg/dL Urine Ketones (NEGATIVE) mg/dL Urine Occult Blood (NEGATIVE) Urine Nitrite (NEGATIVE) Urine Bilirubin (NEGATIVE) Urine Urobilinogen (0.2-1.0) EU/dL Ur Leukocyte Esterase (NEGATIVE) Urine RBC (0-5) Urine WBC (0-5) Ur Epithelial Cells Amorphous Sediment Urine Bacteria Urine Mucus Urine Opiates Screen (NEGATIVE) Ur Oxycodone Screen (NEGATIVE) Urine Methadone Screen (NEGATIVE) Ur Propoxyphene Screen (NEGATIVE) Acetaminophen 0.2 L (10.0-30.0) ug/mL Ur Barbiturates Screen (NEGATIVE) Ur Tricyclics Screen (NEGATIVE) Ur Phencyclidine Scrn (NEGATIVE) Ur Amphetamine Screen (NEGATIVE) U Methamphetamines Scrn (NEGATIVE) Urine MDMA Screen (NEGATIVE) U Benzodiazepines Scrn (NEGATIVE) U Cocaine Metab Screen (NEGATIVE) U Marijuana (THC) Screen (NEGATIVE) Ethyl Alcohol mg/dL 04/13/21 04/13/21 04/13/21 Range/Units 18:28 18:50 18:50 WBC (4.5-11.0) K/uL RBC (3.30-5.50) M/uL Hgb (12.0-15.0) g/dL Hct (36.0-48.0) % MCV (80-98) fL MCH (27-31) pg MCHC (32-36) % Plt Count (150-400) K/uL Neut % (Auto) (36-66) % Lymph % (Auto) (24-44) % Coleman % (Auto) (2-6) % Eos % (Auto) (2-4) % Baso % (Auto) (0-1) % Sodium (140-148) mmol/L Potassium (3.6-5.2) mmol/L Chloride (100-108) mmol/L Carbon Dioxide (21-32) mmol/L Anion Gap (5.0-14.0) mmol/L BUN (7-18) mg/dL Creatinine (0.6-1.0) mg/dL Est Cr Clr Drug Dosing mL/min Estimated GFR (MDRD) (>60) Glucose (74-106) mg/dL Lactic Acid (0.4-2.0) mmol/L Calcium (8.5-10.1) mg/dL Ferritin (8-388) ng/ml Total Bilirubin (0.2-1.0) mg/dL AST (15-37) U/L ALT (12-78) U/L Alkaline Phosphatase (46-116) U/L Lactate Dehydrogenase (82-234) U/L Total Protein (6.4-8.2) g/dL Albumin (3.4-5.0) g/dL Globulin (2.3-3.5) g/dL Albumin/Globulin Ratio (1.2-2.2) Urine Color Yellow (YELLOW) Urine Appearance Cloudy A (CLEAR) Urine pH 6.5 (5.0-8.0) Ur Specific Jackson 1.020 (1.008-1.030) Urine Protein 30 H (NEGATIVE) mg/dL Urine Glucose (UA) Negative (NEGATIVE) mg/dL Urine Ketones Trace H (NEGATIVE) mg/dL Urine Occult Blood Trace-intact H (NEGATIVE) Urine Nitrite Positive H (NEGATIVE) Urine Bilirubin Negative (NEGATIVE) Urine Urobilinogen 0.2 (0.2-1.0) EU/dL Ur Leukocyte Esterase Small H (NEGATIVE) Urine RBC 0-5 (0-5) Urine WBC 50-75 H (0-5) Ur Epithelial Cells Few Amorphous Sediment Not seen Urine Bacteria Many Urine Mucus Not seen Urine Opiates Screen Presumptive positive H (NEGATIVE) Ur Oxycodone Screen Presumptive positive H (NEGATIVE) Urine Methadone Screen Negative (NEGATIVE) Ur Propoxyphene Screen Negative (NEGATIVE) Acetaminophen (10.0-30.0) ug/mL Ur Barbiturates Screen Negative (NEGATIVE) Ur Tricyclics Screen Negative (NEGATIVE) Ur Phencyclidine Scrn Negative (NEGATIVE) Ur Amphetamine Screen Negative (NEGATIVE) U Methamphetamines Scrn Negative (NEGATIVE) Urine MDMA Screen Negative (NEGATIVE) U Benzodiazepines Scrn Presumptive positive H (NEGATIVE) U Cocaine Metab Screen Negative (NEGATIVE) U Marijuana (THC) Screen Negative (NEGATIVE) Ethyl Alcohol < 3 mg/dL - Radiology Interpretation Free Text/Narrative:: I reviewed the images of the CT of the head without contrast as well as the report. The report is as follows: Final Report: Indication: Disorientation, been following for the last few days Technique: Volumetric multidetector CT images of the head were obtained without the administration of low osmolar intravenous contrast. Comparison: None available Findings: There is no intra-axial or extra-axial fluid collection. There is no mass effect or midline shift. There is global cortical atrophy somewhat greater than expected for age predominantly in the cerebral vertices and temporal lobes. There is asymmetrical prominence of the efryc-gslvoly-hnml-left temporal horns with moderate dilatation of the right temporal horn. There is likely a posterior fossa arachnoid cyst. There are chronic small vessel disease changes in the subcortical and periventricular white matter without lost mullen-white differentiation. The orbits and their contents are grossly within normal limits. The bony calvarium is grossly intact. There is moderate chronic mucosal thickening with scattered bubbly secretions and air-fluid levels. The mastoid air cells are well aerated. Impression: Global cortical atrophy somewhat greater than expected for age with mild prominence of the right greater than left temporal horn. These findings can be associated with chronic ETOH abuse. Correlate with clinical history. Otherwise, no definite acute intracranial abnormality. Acute on chronic sinusitis. Please note that all CT scans at this facility use dose modulation, iterative reconstruction, and/or weight-based dosing when appropriate to reduce radiation dose to as low as reasonably achievable. Dictated by Charles Blackmon MD @ 04/13/2021 7:44:46 PM - Re-Assessments/Exams Free Text/Narrative Re-Assessment/Exam: 04/13/21 19:43 I reviewed the patient's labs showing a normal CBC with a leukocyte count of 5.0, hemoglobin of 15.5 and a platelet count of 174,000. Her comprehensive metabolic panel shows a sodium 140, potassium 3.3, chloride of 103, bicarbonate of 29, BUN of 5 with a creatinine of 0.8 and a glucose of 122. Her calcium was slightly elevated at 10.5. AST, ALT and alkaline phosphatase are within normal limits. Venous lactic acid is 1.1, LDH is 169, ferritin is 343, ethanol is less than 3 and acetaminophen is 0.2. Urinalysis shows positive nitrites and leukocyte esterase with 50-75 WBCs and 0-5 RBCs consistent with a significant urinary tract infection. Urine drug screen is positive for opiates, oxycodone and benzodiazepines. It appears the patient is prescribed hydrocodone but not oxycodone so I will have to investigate where the oxycodone is coming from. This is likely pressure oxycodone as she has a low acetaminophen level making it less likely that this is Percocet. 04/13/21 19:55 the patient is positive for COVID-19. Source likely the combination of Covid, UTI, and narcotic medications contributing to her confusion and increased falling. The monoclonal antibody therapy has been ordered and they will contact her from the [facility] to perform that tomorrow. We will put her on Bactrim for her urinary tract infection 1 double strength tablet twice daily for 7 days. This was sent out to the [facility]. Indications to return to the ED were discussed and the patient is discharged at this time Departure - Departure Time of Disposition: 20:11 Disposition: Home, Self-Care 01 Clinical Impression: Disorientation, COVID-19, Opiate dependence, continuous Urinary tract infection Qualifiers: Urinary tract infection type: acute cystitis Hematuria presence: without hematuria Qualified Code(s): N30.00 - Acute cystitis without hematuria - Discharge Information Instructions: 10 Things You Can Do to Manage Your COVID-19 Symptoms at Home - [facility] (11/04/2020), Urinary Tract Infection, Adult, COVID-19: How to Protect Yourself and Others - [facility] Referrals: Familia Lomax MD [Primary Care Provider] - Forms: ED Department Discharge Care Plan Goals: Your work-up today has shown that you 1st off have an excess amount of oxycodone in your urine flow, you also have a urinary tract infection and COVID-19 all of which can be contributing to your confusion and increased falls. I have arranged for you to get the monoclonal antibody therapy. You will be contacted tomorrow to arrange this. For the urinary tract infection we are going to start you on Bactrim 1 tablet twice daily for 7 days. A urine culture is pending and if it shows that you are resistant to this will be changed to an appropriate antibiotic. If you develop increasing shortness of breath please return to the ED for reevaluation as COVID-19 can progress to develop a severe pneumonitis causing low oxygen. Please quarantine for the next 10 to 14 days with COVID-19. Sepsis Event Note (ED) - Focused Exam Vital Signs: Vital Signs Temp Pulse Resp BP Pulse Ox 04/13/21 18:44 36.8 C 111 H 15 104/72 95 04/13/21 18:23 36.8 C 111 H 15 104/72 95 - Problem List & Annotations (1) COVID-19 SNOMED Code(s): 624567580 Code(s): U07.1 - COVID-19 Status: Acute Priority: High Current Visit: Yes (2) Disorientation SNOMED Code(s): 70853350 Code(s): R41.0 - DISORIENTATION, UNSPECIFIED Status: Acute Priority: High Current Visit: Yes (3) Opiate dependence, continuous SNOMED Code(s): 717247233 Code(s): F11.20 - OPIOID DEPENDENCE, UNCOMPLICATED Status: Acute Priority: High Current Visit: Yes (4) Urinary tract infection SNOMED Code(s): 08090178 Code(s): N39.0 - URINARY TRACT INFECTION, SITE NOT SPECIFIED Status: Acute Priority: High Current Visit: Yes Qualifiers: Urinary tract infection type: acute cystitis Hematuria presence: without hematuria Qualified Code(s): N30.00 - Acute cystitis without hematuria - Problem List Review Problem List Initiated/Reviewed/Updated: Yes - My Orders Last 24 Hours: My Active Orders 04/13/21 18:16 Head wo Cont [CT] Stat 04/13/21 18:19 Isolation [COMM] Stat 04/13/21 18:28 D-DIMER QUANTITATIVE [COAG] Stat PROCALCITONIN [CHEM] Stat 04/13/21 18:44 COVID-19/FLU A+B/RSV [MOLEC] Stat 04/13/21 19:34 CULTURE URINE [RM] Stat - Assessment/Plan Last 24 Hours: My Active Orders 04/13/21 18:16 Head wo Cont [CT] Stat 04/13/21 18:19 Isolation [COMM] Stat 04/13/21 18:28 D-DIMER QUANTITATIVE [COAG] Stat PROCALCITONIN [CHEM] Stat 04/13/21 18:44 COVID-19/FLU A+B/RSV [MOLEC] Stat 04/13/21 19:34 CULTURE URINE [RM] Stat
[2021-04-13 19:30] LABS: ACETAMINOPHEN 0.2 ug/mL (10.0-30.0)
--- NOTE | 2021-04-13 19:47 | CRLCT ---
For Patients: As a result of the Cures Act, medical imaging exams and procedure reports are released immediately into your electronic medical record. You may view this report before your referring provider. If you have questions, please contact your health care provider. Indication: Disorientation, been following for the last few days Technique: Volumetric multidetector CT images of the head were obtained without the administration of low osmolar intravenous contrast. Comparison: None available Findings: There is no intra-axial or extra-axial fluid collection. There is no mass effect or midline shift. There is global cortical atrophy somewhat greater than expected for age predominantly in the cerebral vertices and temporal lobes. There is asymmetrical prominence of the lkvcw-eyhskoq-pjcf-left temporal horns with moderate dilatation of the right temporal horn. There is likely a posterior fossa arachnoid cyst. There are chronic small vessel disease changes in the subcortical and periventricular white matter without lost mullen-white differentiation. The orbits and their contents are grossly within normal limits. The bony calvarium is grossly intact. There is moderate chronic mucosal thickening with scattered bubbly secretions and air-fluid levels. The mastoid air cells are well aerated. Impression: Global cortical atrophy somewhat greater than expected for age with mild prominence of the right greater than left temporal horn. These findings can be associated with chronic ETOH abuse. Correlate with clinical history. Otherwise, no definite acute intracranial abnormality. Acute on chronic sinusitis. Please note that all CT scans at this facility use dose modulation, iterative reconstruction, and/or weight-based dosing when appropriate to reduce radiation dose to as low as reasonably achievable. Dictated by Charles Blackmon MD @ 04/13/2021 7:44:46 PM (Electronically Signed)
[2021-04-13 19:49] LABS: CORONAVIRUS COVID-19 NAA POSITIVE (NEGATIVE)
== END 2021-04-13 20:22 | disposition home or self-care (01) ==
LOC: JP.ED 18:12
DX: U07.1 COVID-19 (principal); R41.0 Disorientation, unspecified; F11.20 Opioid dependence, uncomplicated; N30.00 Acute cystitis without hematuria; G43.909 Migraine, unspecified, not intractable, without status migrainosus; Z88.1 Allergy status to other antibiotic agents; Z88.6 Allergy status to analgesic agent; Z79.899 Other long term (current) drug therapy
CPT/HCPCS: 0241U; 36415; 70450; 80053; 80143; 80305; 80307; 81001; 82728; 83605; 83615; 84145; 85025; 85379; 87086; 87088; 87186; 99285

== ENCOUNTER 2021-05-09 10:42 | Inpatient (IN) | payer MEDICARE, MEDICAID ==
[2021-05-09] MEDS ORDERED: Sodium Chloride 0.9% 1,000 ML IV ONE (12:24)
[2021-05-09] MEDS ORDERED: Potassium Chloride 20 MEQ Tab.ER PO ONE ×2 (12:25→16:00)
[2021-05-09] MEDS ORDERED: Polyethylene Glycol 3350 Powder 17 GM Packet PO PRN (15:35)
[2021-05-09] MEDS ORDERED: Sodium Chloride 0.9% 10 ML Syringe FLUSH PRN (15:35)
[2021-05-09] MEDS ORDERED: Ondansetron 4 MG/2 ML SDV IV PRN (15:35)
[2021-05-09] MEDS: Sodium Chloride 0.9% 1,000 ML IV SCH ×2 (16:06→23:30)
[2021-05-09] MEDS: Enoxaparin 40 MG/0.4 ML Syringe SUBCUT SCH (16:30)
[2021-05-09] MEDS ORDERED: Nicotine Polacrilex 2 MG Gum CHEW PRN (17:14)
[2021-05-09] MEDS: QUEtiapine 25 MG Tab PO SCH (20:16)
[2021-05-09] MEDS: Gabapentin 300 MG Cap PO SCH (20:17)
[2021-05-09] MEDS: Nicotine 21 MG/24 Hr Patch TRDERM SCH (20:17)
[2021-05-09] MEDS: Venlafaxine 75 MG Tab PO SCH (20:18)
[2021-05-10] MEDS: Sodium Chloride 0.9% 1,000 ML IV SCH (07:44)
[2021-05-10] MEDS: Magnesium Sulfate/Water 2 GM in Premix Bag 1 BAG IV SCH ×2 (08:58→14:53)
[2021-05-10] MEDS: QUEtiapine 25 MG Tab PO SCH ×2 (08:58→21:40)
[2021-05-10] MEDS: Magnesium Oxide 400 MG Tab PO SCH ×2 (08:58→21:41)
[2021-05-10] MEDS: Gabapentin 300 MG Cap PO SCH ×2 (08:58→21:40)
[2021-05-10] MEDS: Venlafaxine 75 MG Tab PO SCH ×2 (08:58→21:39)
[2021-05-10] MEDS ORDERED: Gadoteridol 279.3 MG/ML 15 ML SDV IV SCH (15:00)
[2021-05-10] MEDS: Enoxaparin 40 MG/0.4 ML Syringe SUBCUT SCH (15:09)
[2021-05-10] MEDS: Nicotine 21 MG/24 Hr Patch TRDERM SCH (17:09)
[2021-05-11] MEDS: Gabapentin 300 MG Cap PO SCH ×2 (08:27→21:00)
[2021-05-11] MEDS: Magnesium Oxide 400 MG Tab PO SCH ×2 (08:27→21:00)
[2021-05-11] MEDS: QUEtiapine 25 MG Tab PO SCH ×2 (08:28→21:00)
[2021-05-11] MEDS: Venlafaxine 75 MG Tab PO SCH ×2 (08:28→21:00)
[2021-05-11] MEDS ORDERED: Potassium Chloride 20 MEQ Tab.ER PO ONE ×2 (09:00→17:00)
[2021-05-11] MEDS: Enoxaparin 40 MG/0.4 ML Syringe SUBCUT SCH (16:29)
[2021-05-11] MEDS: Nicotine 21 MG/24 Hr Patch TRDERM SCH (17:15)
[2021-05-12] MEDS: Venlafaxine 75 MG Tab PO SCH ×2 (09:43→21:24)
[2021-05-12] MEDS: QUEtiapine 25 MG Tab PO SCH ×2 (09:43→21:24)
[2021-05-12] MEDS: Gabapentin 300 MG Cap PO SCH ×2 (09:44→21:24)
[2021-05-12] MEDS: Magnesium Oxide 400 MG Tab PO SCH ×2 (09:45→21:24)
[2021-05-12] MEDS: Enoxaparin 40 MG/0.4 ML Syringe SUBCUT SCH (16:31)
[2021-05-12] MEDS: Nicotine 21 MG/24 Hr Patch TRDERM SCH (18:08)
[2021-05-12] MEDS: Acetaminophen 325 MG Tab PO PRN (19:36)
[2021-05-12] MEDS ORDERED: Zolpidem 5 MG Tab PO ONE (20:55)
[2021-05-12] MEDS ORDERED: traZODone 50 MG Tab PO ONE (20:55)
[2021-05-13] MEDS: Sodium Chloride 0.9% 1,000 ML IV SCH ×2 (04:55→18:00)
[2021-05-13] MEDS: Gabapentin 300 MG Cap PO SCH ×2 (08:19→20:02)
[2021-05-13] MEDS: Magnesium Oxide 400 MG Tab PO SCH ×2 (08:19→20:02)
[2021-05-13] MEDS: Venlafaxine 75 MG Tab PO SCH ×2 (08:19→20:02)
[2021-05-13] MEDS: QUEtiapine 25 MG Tab PO SCH ×2 (08:20→20:02)
[2021-05-13] MEDS: Enoxaparin 40 MG/0.4 ML Syringe SUBCUT SCH (15:20)
[2021-05-13] MEDS: Nicotine 21 MG/24 Hr Patch TRDERM SCH (18:21)
[2021-05-13] MEDS: Acetaminophen 325 MG Tab PO PRN (19:56)
[2021-05-14] MEDS: Sodium Chloride 0.9% 1,000 ML IV SCH (07:34)
[2021-05-14] MEDS: Magnesium Oxide 400 MG Tab PO SCH ×2 (08:38→20:00)
[2021-05-14] MEDS: Gabapentin 300 MG Cap PO SCH ×2 (08:38→20:00)
[2021-05-14] MEDS: Venlafaxine 75 MG Tab PO SCH ×2 (08:38→20:00)
[2021-05-14] MEDS: QUEtiapine 25 MG Tab PO SCH ×2 (08:38→20:00)
[2021-05-14] MEDS ORDERED: Potassium Chloride 20 MEQ Tab.ER PO ONE (09:15)
[2021-05-14] MEDS: Enoxaparin 40 MG/0.4 ML Syringe SUBCUT SCH (16:19)
[2021-05-14] MEDS: Nicotine 21 MG/24 Hr Patch TRDERM SCH (17:21)
[2021-05-15] MEDS: Gabapentin 300 MG Cap PO SCH ×2 (09:03→21:02)
[2021-05-15] MEDS: QUEtiapine 25 MG Tab PO SCH ×2 (09:03→21:02)
[2021-05-15] MEDS: Venlafaxine 75 MG Tab PO SCH ×2 (09:03→21:02)
[2021-05-15] MEDS: Magnesium Oxide 400 MG Tab PO SCH ×2 (09:03→21:02)
[2021-05-15 12:48] LABS: CORONAVIRUS COVID-19 NAA NEGATIVE (NEGATIVE)
[2021-05-15] MEDS: Nicotine 21 MG/24 Hr Patch TRDERM SCH (17:22)
[2021-05-16] MEDS: Magnesium Oxide 400 MG Tab PO SCH ×2 (08:20→20:08)
[2021-05-16] MEDS: Venlafaxine 75 MG Tab PO SCH ×2 (08:20→20:08)
[2021-05-16] MEDS: Gabapentin 300 MG Cap PO SCH ×2 (08:20→20:08)
[2021-05-16] MEDS: QUEtiapine 25 MG Tab PO SCH ×2 (08:20→20:08)
[2021-05-16] MEDS ORDERED: Sodium Chloride 0.9% 500 ML IV SCH (11:45)
[2021-05-16] MEDS: Calcitonin (Salmon) Nasal Spray 3.7 ML Bottle NAS SCH (12:03)
[2021-05-16] MEDS ORDERED: Furosemide 40 MG/4 ML VIAL IVPUSH ONE (13:00)
[2021-05-16] MEDS: Acetaminophen 325 MG Tab PO PRN ×2 (16:30→20:48)
[2021-05-16] MEDS: Nicotine 21 MG/24 Hr Patch TRDERM SCH (17:11)
[2021-05-17] MEDS ORDERED: Sodium Chloride 0.9% 500 ML IV SCH ×3 (08:15→09:15)
[2021-05-17] MEDS: Venlafaxine 75 MG Tab PO SCH ×2 (08:54→20:20)
[2021-05-17] MEDS: Magnesium Oxide 400 MG Tab PO SCH ×2 (08:55→20:20)
[2021-05-17] MEDS: Cholecalciferol (Vitamin D3) 50,000 Unit Cap PO SCH (08:56)
[2021-05-17] MEDS: Calcitonin (Salmon) Nasal Spray 3.7 ML Bottle NAS SCH (08:56)
[2021-05-17] MEDS: Gabapentin 300 MG Cap PO SCH ×2 (08:56→20:20)
[2021-05-17] MEDS: QUEtiapine 25 MG Tab PO SCH ×2 (08:56→20:20)
[2021-05-17] MEDS ORDERED: Furosemide 40 MG/4 ML VIAL IVPUSH ONE ×2 (09:00→16:00)
[2021-05-17] MEDS ORDERED: Sodium Chloride 0.9% 1,000 ML IV SCH (15:00)
[2021-05-17] MEDS: Nicotine 21 MG/24 Hr Patch TRDERM SCH (17:02)
[2021-05-18] MEDS: Magnesium Oxide 400 MG Tab PO SCH ×2 (08:51→21:23)
[2021-05-18] MEDS: Gabapentin 300 MG Cap PO SCH ×2 (08:52→21:23)
[2021-05-18] MEDS: QUEtiapine 25 MG Tab PO SCH ×2 (08:52→21:23)
[2021-05-18] MEDS: Calcitonin (Salmon) Nasal Spray 3.7 ML Bottle NAS SCH (08:52)
[2021-05-18] MEDS: Venlafaxine 75 MG Tab PO SCH ×2 (08:56→21:23)
[2021-05-18] MEDS: Potassium Chloride 20 MEQ, Lidocaine 1% 2 ML in Sodium Chloride 0.9% 100 ML IV SCH ×3 (09:09→14:44)
[2021-05-18] MEDS: Nicotine 21 MG/24 Hr Patch TRDERM SCH (18:30)
[2021-05-18] MEDS: Dextrose 5%-Lactated Ringers 1,000 ML IV SCH (23:37)
[2021-05-19] MEDS ORDERED: fentaNYL 250 MCG/5 ML SDV ONE (07:53)
[2021-05-19] MEDS ORDERED: Neostigmine Methylsulfate 1 MG/ML 5 ML Syringe ONE (07:54)
[2021-05-19] MEDS ORDERED: Propofol 200 MG/20 ML SDV ONE (07:54)
[2021-05-19] MEDS ORDERED: Dexamethasone 4 MG/ML SDV ONE (07:54)
[2021-05-19] MEDS ORDERED: Succinylcholine 200 MG/10 ML MDV ONE (07:54)
[2021-05-19] MEDS ORDERED: Glycopyrrolate 0.2 MG/ML 5 ML MDV ONE (07:54)
[2021-05-19] MEDS ORDERED: Ondansetron 4 MG/2 ML SDV ONE (07:54)
[2021-05-19] MEDS ORDERED: Rocuronium 50 MG/5 ML Vial ONE ×2 (07:54→10:54)
[2021-05-19] MEDS ORDERED: fentaNYL 100 MCG/2 ML SDV ONE (11:55)
[2021-05-19] MEDS: Dextrose 5%-Lactated Ringers 1,000 ML IV SCH (13:22)
[2021-05-19] MEDS: Magnesium Oxide 400 MG Tab PO SCH ×2 (13:24→21:39)
[2021-05-19] MEDS: Gabapentin 300 MG Cap PO SCH ×2 (13:24→21:39)
[2021-05-19] MEDS: Calcitonin (Salmon) Nasal Spray 3.7 ML Bottle NAS SCH (13:24)
[2021-05-19] MEDS: Venlafaxine 75 MG Tab PO SCH ×2 (13:24→21:39)
[2021-05-19] MEDS: Cholecalciferol (Vitamin D3) 50,000 Unit Cap PO SCH (13:25)
[2021-05-19] MEDS: QUEtiapine 25 MG Tab PO SCH ×2 (13:25→21:40)
[2021-05-19] MEDS: Acetaminophen 325 MG Tab PO PRN (13:29)
[2021-05-19] MEDS ORDERED: Calcium Carbonate 500 MG Tab.Chew PO PRN (13:50)
[2021-05-19] MEDS ORDERED: Cholecalciferol (Vitamin D3) 50,000 Unit Cap PO ONE (15:30)
[2021-05-19] MEDS: ceFAZolin 2 GM in Premix Bag 1 BAG IV SCH ×2 (16:02→22:53)
[2021-05-19] MEDS: Nicotine 21 MG/24 Hr Patch TRDERM SCH (17:52)
[2021-05-19] MEDS: Acetaminophen 325 MG Tab PO SCH (19:43)
[2021-05-20] MEDS: Dextrose 5%-Lactated Ringers 1,000 ML IV SCH (01:37)
[2021-05-20] MEDS: Acetaminophen 325 MG Tab PO SCH ×4 (02:49→19:55)
[2021-05-20] MEDS: ceFAZolin 2 GM in Premix Bag 1 BAG IV SCH (07:48)
[2021-05-20] MEDS ORDERED: Dextrose 5%-Lactated Ringers 1,000 ML IV SCH (08:15)
[2021-05-20] MEDS ORDERED: Potassium Chloride 20 MEQ Tab.ER PO ONE (08:30)
[2021-05-20] MEDS: Venlafaxine 75 MG Tab PO SCH ×2 (08:39→21:55)
[2021-05-20] MEDS: Magnesium Oxide 400 MG Tab PO SCH ×2 (08:39→21:56)
[2021-05-20] MEDS: Gabapentin 300 MG Cap PO SCH ×2 (08:39→21:57)
[2021-05-20] MEDS: Polyethylene Glycol 3350 Powder 17 GM Packet PO SCH (08:40)
[2021-05-20] MEDS: QUEtiapine 25 MG Tab PO SCH ×2 (08:40→21:56)
[2021-05-20] MEDS: Calcium Carbonate 500 MG Tab.Chew PO SCH ×3 (08:41→21:57)
[2021-05-20] MEDS: Cholecalciferol (Vitamin D3) 50,000 Unit Cap PO SCH (08:42)
[2021-05-20] MEDS: Docusate Sodium 100 MG Cap PO SCH ×2 (08:44→21:55)
[2021-05-20] MEDS: Bisacodyl 5 MG Tab PO SCH ×2 (08:45→21:56)
[2021-05-20] MEDS: Magnesium Sulfate/Water 2 GM in Premix Bag 1 BAG IV SCH ×2 (09:30→15:40)
[2021-05-20] MEDS: Potassium Phos in 0.9 % NaCl 15 MMOL in Premix Bag 1 BAG IV SCH ×6 (12:57→19:53)
[2021-05-20] MEDS: Nicotine 21 MG/24 Hr Patch TRDERM SCH (18:13)
[2021-05-21] MEDS: Magnesium Sulfate/Water 2 GM in Premix Bag 1 BAG IV SCH ×5 (00:30→21:41)
[2021-05-21] MEDS: Acetaminophen 325 MG Tab PO SCH ×4 (02:27→21:35)
[2021-05-21] MEDS: Venlafaxine 75 MG Tab PO SCH ×2 (09:18→21:36)
[2021-05-21] MEDS: Magnesium Oxide 400 MG Tab PO SCH ×2 (09:18→21:35)
[2021-05-21] MEDS: Polyethylene Glycol 3350 Powder 17 GM Packet PO SCH (09:19)
[2021-05-21] MEDS: QUEtiapine 25 MG Tab PO SCH ×2 (09:19→21:36)
[2021-05-21] MEDS: Cholecalciferol (Vitamin D3) 50,000 Unit Cap PO SCH (09:19)
[2021-05-21] MEDS: Calcium Carbonate 500 MG Tab.Chew PO SCH ×3 (09:19→22:40)
[2021-05-21] MEDS: Gabapentin 300 MG Cap PO SCH ×2 (09:19→21:36)
[2021-05-21] MEDS: Nicotine 21 MG/24 Hr Patch TRDERM SCH (17:10)
[2021-05-22] MEDS: Magnesium Sulfate/Water 2 GM in Premix Bag 1 BAG IV SCH ×2 (02:43→10:00)
[2021-05-22] MEDS: Acetaminophen 325 MG Tab PO SCH ×4 (02:43→20:21)
[2021-05-22] MEDS: Cholecalciferol (Vitamin D3) 50,000 Unit Cap PO SCH (09:59)
[2021-05-22] MEDS: Venlafaxine 75 MG Tab PO SCH ×2 (09:59→20:22)
[2021-05-22] MEDS: Calcium Carbonate 500 MG Tab.Chew PO SCH ×3 (09:59→20:22)
[2021-05-22] MEDS: QUEtiapine 25 MG Tab PO SCH ×2 (10:00→20:22)
[2021-05-22] MEDS: Polyethylene Glycol 3350 Powder 17 GM Packet PO SCH (10:00)
[2021-05-22] MEDS: Gabapentin 300 MG Cap PO SCH ×2 (10:00→20:22)
[2021-05-22] MEDS: Magnesium Oxide 400 MG Tab PO SCH ×2 (10:03→20:22)
[2021-05-22] MEDS: Nicotine 21 MG/24 Hr Patch TRDERM SCH (18:04)
[2021-05-23] MEDS: Acetaminophen 325 MG Tab PO SCH ×4 (02:47→20:04)
[2021-05-23] MEDS: Magnesium Oxide 400 MG Tab PO SCH ×3 (08:13→20:04)
[2021-05-23] MEDS: Gabapentin 300 MG Cap PO SCH ×2 (08:13→20:06)
[2021-05-23] MEDS: Polyethylene Glycol 3350 Powder 17 GM Packet PO SCH (08:13)
[2021-05-23] MEDS: Venlafaxine 75 MG Tab PO SCH ×2 (08:13→20:05)
[2021-05-23] MEDS: QUEtiapine 25 MG Tab PO SCH ×2 (08:13→20:06)
[2021-05-23] MEDS: Cholecalciferol (Vitamin D3) 50,000 Unit Cap PO SCH (08:13)
[2021-05-23] MEDS: Calcium Carbonate 500 MG Tab.Chew PO SCH ×3 (08:14→20:04)
[2021-05-23 14:27] LABS: HEMOGLOBIN A1C 6.2 % (4.5-6.2)
[2021-05-23] MEDS: ALPRAZolam 0.25 MG Tab PO PRN (15:07)
[2021-05-23] MEDS: Nicotine 21 MG/24 Hr Patch TRDERM SCH (17:59)
[2021-05-24] MEDS: Acetaminophen 325 MG Tab PO SCH ×4 (03:11→21:46)
[2021-05-24] MEDS: ALPRAZolam 0.25 MG Tab PO PRN ×4 (07:35→23:39)
[2021-05-24] MEDS: Polyethylene Glycol 3350 Powder 17 GM Packet PO SCH (08:30)
[2021-05-24] MEDS: Calcium Carbonate 500 MG Tab.Chew PO SCH ×3 (08:31→21:46)
[2021-05-24] MEDS: Venlafaxine 75 MG Tab PO SCH ×2 (08:31→21:47)
[2021-05-24] MEDS: Cholecalciferol (Vitamin D3) 50,000 Unit Cap PO SCH (08:31)
[2021-05-24] MEDS: QUEtiapine 25 MG Tab PO SCH ×2 (08:31→21:47)
[2021-05-24] MEDS: Magnesium Oxide 400 MG Tab PO SCH ×3 (08:31→21:47)
[2021-05-24] MEDS: Gabapentin 300 MG Cap PO SCH ×2 (08:31→21:47)
[2021-05-24] MEDS ORDERED: Potassium Chloride 20 MEQ Tab.ER PO ONE (09:00)
[2021-05-24] MEDS: Nicotine 21 MG/24 Hr Patch TRDERM SCH (18:06)
[2021-05-25] MEDS: Acetaminophen 325 MG Tab PO SCH ×3 (03:22→13:29)
[2021-05-25] MEDS: ALPRAZolam 0.25 MG Tab PO PRN ×2 (07:38→13:27)
[2021-05-25] MEDS: Polyethylene Glycol 3350 Powder 17 GM Packet PO SCH (08:43)
[2021-05-25] MEDS: Magnesium Oxide 400 MG Tab PO SCH ×2 (08:47→13:30)
[2021-05-25] MEDS: Venlafaxine 75 MG Tab PO SCH (08:47)
[2021-05-25] MEDS: Gabapentin 300 MG Cap PO SCH (08:48)
[2021-05-25] MEDS: Cholecalciferol (Vitamin D3) 50,000 Unit Cap PO SCH (08:49)
[2021-05-25] MEDS: QUEtiapine 25 MG Tab PO SCH (08:49)
[2021-05-25] MEDS: Calcium Carbonate 500 MG Tab.Chew PO SCH ×2 (08:49→13:30)
[2021-05-25 15:06] VITALS: BP 110/68; PULSE 72
== END 2021-05-25 15:07 | DRG 627 ==
LOC: JP.ED 10:42 → JP.MS 14:34 → UNDOADMIN 15:20 → JP.MS 15:20
PROVIDERS: ADMIT Hospitalist; ATTEND Hospitalist
PROC: 009U3ZZ Drainage of Spinal Canal, Percutaneous Approach (ICD-10-PCS; 2021-05-09)
PROC: 0GBN0ZZ Excision of Right Inferior Parathyroid Gland, Open Approach (ICD-10-PCS; principal; 2021-05-19)
PROC: 0HB4XZZ Excision of Neck Skin, External Approach (ICD-10-PCS; 2021-05-19)
DX: E21.0 Primary hyperparathyroidism (principal); R41.0 Disorientation, unspecified; R53.1 Weakness; E83.42 Hypomagnesemia; E87.6 Hypokalemia; D35.1 Benign neoplasm of parathyroid gland; E83.52 Hypercalcemia; Z20.822 Contact with and (suspected) exposure to COVID-19; H54.7 Unspecified visual loss; Z96.652 Presence of left artificial knee joint; U09.9 Post COVID-19 condition, unspecified; M19.90 Unspecified osteoarthritis, unspecified site; F41.9 Anxiety disorder, unspecified; F32.A Depression, unspecified; L98.9 Disorder of the skin and subcutaneous tissue, unspecified; F17.210 Nicotine dependence, cigarettes, uncomplicated; Z88.1 Allergy status to other antibiotic agents; Z79.899 Other long term (current) drug therapy; Z90.710 Acquired absence of both cervix and uterus; Z90.49 Acquired absence of other specified parts of digestive tract; Z88.8 Allergy status to other drugs, medicaments and biological substances
CPT/HCPCS: 0241U; 36415; 70450; 70553; 71046; 76536; 78070; 80048; 80053; 80305; 80307; 81001; 82140; 82306; 82803; 82945; 83036; 83735; 83970; 84100; 84157; 84443; 85025; 85027; 85379; 86140; 87070; 87205; 88305; 89050; 97110; 97112; 97140; 97163; 97165; 97530; 99285; A9270-GY; A9500; A9579; J0330; J0690; J1100; J1650; J1940; J2020; J2405; J2704; J2710; J3010; J3475; J3480; J3490; J7030; J7040; J7121

== ENCOUNTER 2021-10-12 08:21 | Day surgery (SDC) | payer MEDICARE, MEDICAID ==
[2021-10-12 08:52] VITALS: PULSE 83
[2021-10-12] MEDS ORDERED: Sodium Chloride 0.9% 10 ML Syringe FLUSH ONE (09:00)
[2021-10-12 09:46] VITALS: BP 114/68
== END 2021-10-12 09:55 | disposition home or self-care (01) ==
LOC: JP.SDS 08:21
PROVIDERS: ATTEND Ophthalmology
DX: H25.11 Age-related nuclear cataract, right eye (principal); E66.9 Obesity, unspecified; Z88.8 Allergy status to other drugs, medicaments and biological substances; Z68.21 Body mass index [BMI] 21.0-21.9, adult

== ENCOUNTER 2021-11-16 08:15 | Day surgery (SDC) | payer MEDICARE, MEDICAID ==
[2021-11-16 08:43] VITALS: PULSE 91
[2021-11-16] MEDS ORDERED: Sodium Chloride 0.9% 10 ML Syringe FLUSH PRN (09:00)
[2021-11-16 09:08] VITALS: BP 115/77
== END 2021-11-16 09:15 | disposition home or self-care (01) ==
LOC: JP.SDS 08:15
PROVIDERS: ATTEND Ophthalmology
DX: H25.12 Age-related nuclear cataract, left eye (principal); Z88.8 Allergy status to other drugs, medicaments and biological substances
CPT/HCPCS: 66984; J3490; V2632

== ENCOUNTER 2023-12-02 20:46 | Inpatient (IN) | payer MEDICAID ==
[2023-12-02 22:02] LABS: BASOPHILS ABSOLUTE AUTO 0.05 K/uL (0.00-0.10); BASOPHILS PERCENT AUTO 0.2 % (0.1-1.3); HEMATOCRIT 43.1 % (34.3-46.0); HEMOGLOBIN 14.7 g/dL (11.2-15.5); IMMATURE GRAN ABSOLUTE AUTO 0.17 K/uL (0.00-0.23); IMMATURE GRAN PERCENT AUTO 0.7 % (0.0-0.7); LYMPHOCYTES ABSOLUTE AUTO 3.09 K/uL (0.8-3.3); LYMPHOCYTES PERCENT AUTO 13.4 % (11.4-47.7); MEAN CORPUSCULAR HEMOGLOBIN 33.8 pg (31.6-35.5); MEAN CORPUSCULAR HGB CONC 34.1 g/dL (31.6-35.5); MEAN CORPUSCULAR VOLUME 99.1 fL (81.4-99.0); MONOCYTES ABSOLUTE AUTO 1.21 K/uL (0.20-0.90); MONOCYTES PERCENT AUTO 5.2 % (3.3-12.6); NEUTROPHILS ABSOLUTE AUTO 18.57 K/uL (1.0-7.6); NEUTROPHILS PERCENT AUTO 80.5 % (40.0-78.1); PLATELET COUNT,PLT 557 K/uL (130-375); RED BLOOD CELL COUNT 4.35 M/uL (3.77-5.24); WHITE BLOOD CELL COUNT,WBC 23.1 K/uL (3.2-11.0)
[2023-12-02 22:03] LABS: EOSINOPHILS ABSOLUTE AUTO 0.01 K/uL (0.00-0.40)
[2023-12-02 22:15] LABS: ALBUMIN 3.1 g/dL (3.4-5.0); ALKALINE PHOSPHATASE 125 U/L (46-116); ASPARTATE AMNIOTRANSFERASE,AST 21 U/L (15-37); BILIRUBIN TOTAL 0.2 mg/dL (0.2-1.0); BLOOD UREA NITROGEN,BUN 5 mg/dL (7-18); C-REACTIVE PROTEIN 1.37 mg/dL (<0.50); CALCIUM 9.3 mg/dL (8.5-10.1); CARBON DIOXIDE,CO2 20 mmol/L (21-32); CHLORIDE,CL 97 mmol/L (100-108); CREATININE 1.1 mg/dL (0.6-1.0); EST CRCL DRUG DOSING (CG) 51.57 mL/min; ESTIMATED GFR 57 mL/min (>60); GLUCOSE RANDOM 155 mg/dL (74-106); PROTEIN TOTAL,TP 7.9 g/dL (6.4-8.2); SODIUM,NA 141 mmol/L (140-148)
[2023-12-02 22:23] LABS: A/G RATIO 0.7 (1.2-2.2); ANION GAP 26.4 mmol/L (5.0-14.0); POTASSIUM,K 2.4 mmol/L (3.6-5.2)
[2023-12-02 22:30] LABS: ALANINE AMINOTRANSFERASE,ALT 24 U/L (12-78)
[2023-12-02] MEDS: Sodium Chloride 0.9% 1,000 ML IV SCH (22:30)
[2023-12-02] MEDS: Ketorolac 15 MG/ML SDV IVPUSH ONE (22:31)
[2023-12-02] MEDS: Ondansetron 4 MG/2 ML SDV IVPUSH ONE (22:31)
[2023-12-02] MEDS: HYDROmorphone 0.5 MG/0.5 ML Syringe IVPUSH ONE (22:31)
[2023-12-02 23:46] LABS: APPEARANCE,URINE SLIGHTLY CLOUDY (CLEAR); BILIRUBIN,URINE NEGATIVE (NEGATIVE); COLOR,URINE YELLOW (YELLOW); GLUCOSE,URINE NEGATIVE (NEGATIVE); KETONES,URINE 15 mg/dL (NEGATIVE); LEUKOCYTE ESTERASE,URINE TRACE (NEGATIVE); NITRITE,URINE NEGATIVE (NEGATIVE); OCCULT BLOOD,URINE NEGATIVE (NEGATIVE); PH,URINE 5.5 (5.0-8.0); PROTEIN,URINE NEGATIVE (NEGATIVE); UROBILINOGEN,URINE 0.2 EU/dL (0.2-1.0)
[2023-12-03] MEDS: Sodium Chloride 0.9% 80 ML IV STA (00:13)
[2023-12-03] MEDS: Iopamidol 612 MG/ML 100 ML Bottle IV STA (00:13)
[2023-12-03 00:14] LABS: RBC,URINE 0-5 (0-5)
[2023-12-03 00:15] LABS: AMORPHOUS SEDIMENT,URINE NOT SEEN; BACTERIA,URINE MODERATE; EPITHELIAL CELLS,URINE FEW; MUCUS,URINE FEW
[2023-12-03] MEDS: Piperacillin/Tazobactam 4.5 GM in Sodium Chloride 0.9% 100 ML IV ONE (00:39)
[2023-12-03] MEDS: HYDROmorphone 0.5 MG/0.5 ML Syringe IVPUSH ONE (00:55)
[2023-12-03] MEDS: Potassium Chloride 10 MEQ in Premix Bag 1 BAG IV ONE (01:06)
[2023-12-03] MEDS: Sodium Chloride 0.9% 1,000 ML IV SCH ×3 (01:30→08:18)
[2023-12-03] MEDS: Iopamidol 755 Mg/ML 100 ML Bottle IV STA (02:50)
[2023-12-03] MEDS: Sodium Chloride 0.9% 100 ML IV STA (02:51)
[2023-12-03] MEDS: Vancomycin 2 GM in Sodium Chloride 0.9% 500 ML IV ONE (04:27)
[2023-12-03] MEDS: Potassium Chloride 20 MEQ Tab.ER PO ONE ×3 (04:43→14:55)
[2023-12-03] MEDS: Nicotine 21 MG/24 Hr Patch TRDERM SCH (05:32)
[2023-12-03] MEDS: Water For Injection, Sterile 40 ML ONE (05:36)
[2023-12-03] MEDS ORDERED: Bisacodyl 5 MG Tab PO PRN (06:12)
[2023-12-03] MEDS ORDERED: Naloxone 0.4 MG/ML SDV IVPUSH PRN (06:12)
[2023-12-03] MEDS ORDERED: Ondansetron 4 MG/2 ML SDV IV PRN (06:12)
[2023-12-03] MEDS ORDERED: Acetaminophen 325 MG Tab PO PRN (06:12)
[2023-12-03] MEDS ORDERED: Albuterol 0.083% 2.5 MG/3 ML Neb Soln NEB PRN (06:12)
[2023-12-03] MEDS: Piperacillin/Tazobactam 4.5 GM in Sodium Chloride 0.9% 100 ML IV SCH (06:40)
[2023-12-03] MEDS: HYDROmorphone 1 MG/ML Syringe IVPUSH PRN (07:16)
[2023-12-03] MEDS: Gabapentin 300 MG Cap PO SCH (08:25)
[2023-12-03] MEDS: Enoxaparin 40 MG/0.4 ML Syringe SUBCUT SCH (08:25)
[2023-12-03] MEDS: Calcium Carbonate 500 MG Tab.Chew PO SCH (08:25)
[2023-12-03] MEDS: atorvaSTATin 20 MG Tab PO SCH (08:25)
[2023-12-03] MEDS: QUEtiapine 25 MG Tab PO SCH (08:25)
[2023-12-03] MEDS: Furosemide 20 MG Tab PO SCH (08:26)
[2023-12-03] MEDS: Magnesium Oxide 400 MG Tab PO SCH ×2 (08:26→14:54)
[2023-12-03] MEDS: Venlafaxine 75 MG Cap.ER PO SCH (08:26)
[2023-12-03] MEDS: Pantoprazole 40 MG Vial IVPUSH SCH (08:27)
[2023-12-03] MEDS: ClonazePAM 1 MG Tab PO SCH (08:28)
[2023-12-03 08:32] LABS: CALCIUM 7.3 mg/dL (8.5-10.1); CREATININE 0.8 mg/dL (0.6-1.0); EST CRCL DRUG DOSING (CG) 70.9 mL/min; MAGNESIUM 1.3 mg/dL (1.8-2.4)
[2023-12-03] MEDS ORDERED: Vancomycin 1 GM SDV IV SCH (09:00)
[2023-12-03] MEDS: Piperacillin/Tazobactam/Dext 4.5 GM in Premix Bag 1 BAG IV SCH (14:11)
[2023-12-03] MEDS: Magnesium Sulfate/Water 2 GM in Premix Bag 1 BAG IV SCH (16:32)
[2023-12-03 17:30] LABS: CALCIUM 7.6 mg/dL (8.5-10.1); CREATININE 0.7 mg/dL (0.6-1.0); EST CRCL DRUG DOSING (CG) 81.03 mL/min; POTASSIUM,K 3.4 mmol/L (3.6-5.2)
[2023-12-03 17:32] LABS: ANION GAP 12.4 mmol/L (5.0-14.0)
[2023-12-03] MEDS: Donepezil 10 MG Tab PO SCH (22:05)
[2023-12-03] MEDS: Melatonin 3 MG Tab PO SCH (22:06)
[2023-12-04] MEDS: oxyCODONE 5 MG Tab PO PRN (02:36)
[2023-12-04 05:26] LABS: BASOPHILS ABSOLUTE AUTO 0.03 K/uL (0.00-0.10); BASOPHILS PERCENT AUTO 0.2 % (0.1-1.3); EOSINOPHILS ABSOLUTE AUTO 0.11 K/uL (0.00-0.40); EOSINOPHILS PERCENT AUTO 0.7 % (0.0-5.4); HEMATOCRIT 34.3 % (34.3-46.0); HEMOGLOBIN 11.3 g/dL (11.2-15.5); IMMATURE GRAN ABSOLUTE AUTO 0.08 K/uL (0.00-0.23); IMMATURE GRAN PERCENT AUTO 0.5 % (0.0-0.7); LYMPHOCYTES ABSOLUTE AUTO 3.35 K/uL (0.8-3.3); LYMPHOCYTES PERCENT AUTO 21.7 % (11.4-47.7); MEAN CORPUSCULAR HEMOGLOBIN 33.4 pg (31.6-35.5); MEAN CORPUSCULAR HGB CONC 32.9 g/dL (31.6-35.5); MEAN CORPUSCULAR VOLUME 101.5 fL (81.4-99.0); MONOCYTES ABSOLUTE AUTO 0.91 K/uL (0.20-0.90); MONOCYTES PERCENT AUTO 5.9 % (3.3-12.6); NEUTROPHILS ABSOLUTE AUTO 10.98 K/uL (1.0-7.6); PLATELET COUNT,PLT 386 K/uL (130-375); RED BLOOD CELL COUNT 3.38 M/uL (3.77-5.24); WHITE BLOOD CELL COUNT,WBC 15.5 K/uL (3.2-11.0)
[2023-12-04 05:52] LABS: ANION GAP 11.4 mmol/L (5.0-14.0); CALCIUM 8.3 mg/dL (8.5-10.1); CREATININE 0.6 mg/dL (0.6-1.0); EST CRCL DRUG DOSING (CG) 94.54 mL/min; POTASSIUM,K 3.4 mmol/L (3.6-5.2)
[2023-12-04] MEDS: Potassium Chloride 20 MEQ Tab.ER PO ONE ×2 (08:39→13:32)
[2023-12-04] MEDS: Polyethylene Glycol 3350 Powder 17 GM Packet PO ONE (13:34)
[2023-12-04] MEDS: LORazepam 2 MG/ML SDV IV PRN (23:23)
[2023-12-05 05:38] LABS: BASOPHILS ABSOLUTE AUTO 0.03 K/uL (0.00-0.10); BASOPHILS PERCENT AUTO 0.2 % (0.1-1.3); EOSINOPHILS ABSOLUTE AUTO 0.11 K/uL (0.00-0.40); EOSINOPHILS PERCENT AUTO 0.9 % (0.0-5.4); HEMATOCRIT 32.6 % (34.3-46.0); IMMATURE GRAN ABSOLUTE AUTO 0.08 K/uL (0.00-0.23); IMMATURE GRAN PERCENT AUTO 0.6 % (0.0-0.7); LYMPHOCYTES ABSOLUTE AUTO 3.61 K/uL (0.8-3.3); LYMPHOCYTES PERCENT AUTO 28.5 % (11.4-47.7); MEAN CORPUSCULAR HEMOGLOBIN 33.6 pg (31.6-35.5); MEAN CORPUSCULAR HGB CONC 33.7 g/dL (31.6-35.5); MEAN CORPUSCULAR VOLUME 99.7 fL (81.4-99.0); MONOCYTES ABSOLUTE AUTO 0.55 K/uL (0.20-0.90); MONOCYTES PERCENT AUTO 4.3 % (3.3-12.6); NEUTROPHILS ABSOLUTE AUTO 8.27 K/uL (1.0-7.6); NEUTROPHILS PERCENT AUTO 65.5 % (40.0-78.1); PLATELET COUNT,PLT 360 K/uL (130-375); RED BLOOD CELL COUNT 3.27 M/uL (3.77-5.24); WHITE BLOOD CELL COUNT,WBC 12.7 K/uL (3.2-11.0)
[2023-12-05 06:05] LABS: CALCIUM 8.6 mg/dL (8.5-10.1); CREATININE 0.7 mg/dL (0.6-1.0); EST CRCL DRUG DOSING (CG) 81.03 mL/min; POTASSIUM,K 3.5 mmol/L (3.6-5.2)
[2023-12-05 06:07] LABS: ANION GAP 9.5 mmol/L (5.0-14.0)
[2023-12-05] MEDS: Magnesium Sulfate/Water 2 GM in Premix Bag 1 BAG IV SCH (10:30)
[2023-12-05] MEDS: Potassium Chloride 20 MEQ Tab.ER PO ONE ×2 (13:26→17:49)
[2023-12-05] MEDS ORDERED: Haloperidol 1 MG Tab PO PRN (14:07)
[2023-12-05] MEDS: Melatonin 3 MG Tab PO SCH (21:22)
[2023-12-06 05:16] LABS: BASOPHILS ABSOLUTE AUTO 0.05 K/uL (0.00-0.10); BASOPHILS PERCENT AUTO 0.5 % (0.1-1.3); EOSINOPHILS ABSOLUTE AUTO 0.18 K/uL (0.00-0.40); EOSINOPHILS PERCENT AUTO 1.7 % (0.0-5.4); HEMATOCRIT 31.8 % (34.3-46.0); HEMOGLOBIN 10.7 g/dL (11.2-15.5); IMMATURE GRAN ABSOLUTE AUTO 0.05 K/uL (0.00-0.23); IMMATURE GRAN PERCENT AUTO 0.5 % (0.0-0.7); LYMPHOCYTES ABSOLUTE AUTO 3.65 K/uL (0.8-3.3); LYMPHOCYTES PERCENT AUTO 35.2 % (11.4-47.7); MEAN CORPUSCULAR HEMOGLOBIN 33.6 pg (31.6-35.5); MEAN CORPUSCULAR HGB CONC 33.6 g/dL (31.6-35.5); MONOCYTES ABSOLUTE AUTO 0.59 K/uL (0.20-0.90); MONOCYTES PERCENT AUTO 5.7 % (3.3-12.6); NEUTROPHILS ABSOLUTE AUTO 5.84 K/uL (1.0-7.6); NEUTROPHILS PERCENT AUTO 56.4 % (40.0-78.1); PLATELET COUNT,PLT 354 K/uL (130-375); RED BLOOD CELL COUNT 3.18 M/uL (3.77-5.24); WHITE BLOOD CELL COUNT,WBC 10.4 K/uL (3.2-11.0)
[2023-12-06 05:39] LABS: ANION GAP 5.3 mmol/L (5.0-14.0); CALCIUM 8.7 mg/dL (8.5-10.1); CREATININE 0.8 mg/dL (0.6-1.0); EST CRCL DRUG DOSING (CG) 70.9 mL/min; POTASSIUM,K 4.2 mmol/L (3.6-5.2)
[2023-12-06] MEDS: Sodium Chloride 0.9% 500 ML IV ONE (05:46)
[2023-12-06] MEDS: Pantoprazole 40 MG Tab.CR PO SCH (08:02)
[2023-12-06] MEDS: Docusate Sodium 100 MG Cap PO PRN (08:12)
[2023-12-06] MEDS: Ciprofloxacin 500 MG Tab PO SCH (21:46)
[2023-12-07 05:18] LABS: BASOPHILS PERCENT AUTO 0.2 % (0.1-1.3); EOSINOPHILS ABSOLUTE AUTO 0.16 K/uL (0.00-0.40); EOSINOPHILS PERCENT AUTO 1.8 % (0.0-5.4); HEMATOCRIT 27.1 % (34.3-46.0); HEMOGLOBIN 9.3 g/dL (11.2-15.5); IMMATURE GRAN ABSOLUTE AUTO 0.06 K/uL (0.00-0.23); IMMATURE GRAN PERCENT AUTO 0.7 % (0.0-0.7); LYMPHOCYTES ABSOLUTE AUTO 3.07 K/uL (0.8-3.3); LYMPHOCYTES PERCENT AUTO 33.7 % (11.4-47.7); MEAN CORPUSCULAR HEMOGLOBIN 34.2 pg (31.6-35.5); MEAN CORPUSCULAR HGB CONC 34.3 g/dL (31.6-35.5); MEAN CORPUSCULAR VOLUME 99.6 fL (81.4-99.0); MONOCYTES ABSOLUTE AUTO 0.49 K/uL (0.20-0.90); MONOCYTES PERCENT AUTO 5.4 % (3.3-12.6); NEUTROPHILS ABSOLUTE AUTO 5.31 K/uL (1.0-7.6); NEUTROPHILS PERCENT AUTO 58.2 % (40.0-78.1); PLATELET COUNT,PLT 374 K/uL (130-375); RED BLOOD CELL COUNT 2.72 M/uL (3.77-5.24); WHITE BLOOD CELL COUNT,WBC 9.1 K/uL (3.2-11.0)
[2023-12-07 05:21] LABS: CALCIUM 9.7 mg/dL (8.5-10.1); CREATININE 0.9 mg/dL (0.6-1.0); EST CRCL DRUG DOSING (CG) 63.03 mL/min; POTASSIUM,K 4.2 mmol/L (3.6-5.2)
[2023-12-07 05:22] LABS: ANION GAP 10.2 mmol/L (5.0-14.0)
[2023-12-07 05:23] LABS: BASOPHILS ABSOLUTE AUTO 0.02 K/uL (0.00-0.10)
[2023-12-07] MEDS: VASCEPA 1 GM PO SCH (08:31)
[2023-12-07 11:16] VITALS: BP 93/55; PULSE 91
== END 2023-12-07 11:35 | disposition home or self-care (01) | DRG 871 ==
LOC: JP.ED 20:46 → JP.ICU 12-03 04:50
PROVIDERS: ADMIT Hospitalist; ATTEND Hospitalist
DX: A41.51 Sepsis due to Escherichia coli [E. coli] (principal); G93.41 Metabolic encephalopathy; F03.94 Unspecified dementia, unspecified severity, with anxiety; F03.93 Unspecified dementia, unspecified severity, with mood disturbance; N30.00 Acute cystitis without hematuria; E87.20 Acidosis, unspecified; K55.9 Vascular disorder of intestine, unspecified; R65.20 Severe sepsis without septic shock; H54.7 Unspecified visual loss; E87.6 Hypokalemia; E86.0 Dehydration; E89.0 Postprocedural hypothyroidism; M19.90 Unspecified osteoarthritis, unspecified site; G43.909 Migraine, unspecified, not intractable, without status migrainosus; J44.9 Chronic obstructive pulmonary disease, unspecified; F17.210 Nicotine dependence, cigarettes, uncomplicated; Z90.89 Acquired absence of other organs; Z88.1 Allergy status to other antibiotic agents; Z88.8 Allergy status to other drugs, medicaments and biological substances; Z90.710 Acquired absence of both cervix and uterus; Z79.84 Long term (current) use of oral hypoglycemic drugs; Z90.49 Acquired absence of other specified parts of digestive tract; Z79.899 Other long term (current) drug therapy; Z98.890 Other specified postprocedural states; Z96.652 Presence of left artificial knee joint; Z98.49 Cataract extraction status, unspecified eye
CPT/HCPCS: 36415; 71045; 71045-26; 74174; 74177; 74181; 74181-26; 76705; 78227; 78227-26; 80048; 80053; 80202; 81001; 82150; 83605; 83690; 83735; 85025; 86140; 87040; 87086; 87088; 87186; 94668; 96361; 96365; 96367; 96375; 96376; 99223; 99232; 99238; 99285; 99285-25; A9270-GY; J1170; J1650; J1885; J2060; J2405; J2470; J2543; J3370; J3475; J3480; J3490; J7030; J7040; J7050; Q9967

== ENCOUNTER 2023-12-08 05:11 | Emergency (ER) | payer MEDICAID ==
[2023-12-08] MEDS: Ketorolac 30 MG/ML SDV IM ONE (06:23)
[2023-12-08] MEDS: HYDROmorphone 1 MG/ML Syringe IM ONE (08:02)
[2023-12-08] MEDS: Acetaminophen/oxyCODONE 325-5 MG Tab PO PRN (09:43)
[2023-12-08 09:48] VITALS: BP 99/44; PULSE 88
== END 2023-12-08 10:48 | disposition home or self-care (01) ==
LOC: JP.ED 05:11
DX: S32.019A Unspecified fracture of first lumbar vertebra, initial encounter for closed fracture (principal); E03.9 Hypothyroidism, unspecified; Z90.49 Acquired absence of other specified parts of digestive tract; Z90.710 Acquired absence of both cervix and uterus; Z79.899 Other long term (current) drug therapy; Z88.1 Allergy status to other antibiotic agents; Z88.8 Allergy status to other drugs, medicaments and biological substances; W19.XXXA Unspecified fall, initial encounter
CPT/HCPCS: 72100; 96372; 99284; A9270; J1170; J1885

== ENCOUNTER 2023-12-14 08:10 | Emergency (ER) | payer MEDICAID ==
[2023-12-14 09:10] VITALS: BP 91/50; PULSE 84
[2023-12-14] MEDS: HYDROmorphone 1 MG/ML Syringe IM ONE (09:35)
== END 2023-12-14 10:17 ==
LOC: JP.ED 08:10
DX: S32.010A Wedge compression fracture of first lumbar vertebra, initial encounter for closed fracture (principal); E03.9 Hypothyroidism, unspecified; F17.200 Nicotine dependence, unspecified, uncomplicated; Z88.8 Allergy status to other drugs, medicaments and biological substances; Z79.899 Other long term (current) drug therapy; Z90.49 Acquired absence of other specified parts of digestive tract; Z90.710 Acquired absence of both cervix and uterus; X50.9XXA Other and unspecified overexertion or strenuous movements or postures, initial encounter
CPT/HCPCS: 96372; 99283; J1170

== ENCOUNTER 2023-12-23 19:26 | Inpatient (IN) | payer MEDICARE, MEDICAID ==
[2023-12-23 20:39] LABS: BASOPHILS ABSOLUTE AUTO 0.05 K/uL (0.00-0.10); BASOPHILS PERCENT AUTO 0.4 % (0.1-1.3); EOSINOPHILS ABSOLUTE AUTO 0.11 K/uL (0.00-0.40); EOSINOPHILS PERCENT AUTO 0.8 % (0.0-5.4); HEMOGLOBIN 13.5 g/dL (11.2-15.5); IMMATURE GRAN ABSOLUTE AUTO 0.06 K/uL (0.00-0.23); IMMATURE GRAN PERCENT AUTO 0.5 % (0.0-0.7); LYMPHOCYTES ABSOLUTE AUTO 5.06 K/uL (0.8-3.3); MEAN CORPUSCULAR HEMOGLOBIN 32.8 pg (31.6-35.5); MEAN CORPUSCULAR HGB CONC 33.8 g/dL (31.6-35.5); MEAN CORPUSCULAR VOLUME 97.3 fL (81.4-99.0); MONOCYTES ABSOLUTE AUTO 0.92 K/uL (0.20-0.90); MONOCYTES PERCENT AUTO 7.1 % (3.3-12.6); NEUTROPHILS ABSOLUTE AUTO 6.79 K/uL (1.0-7.6); NEUTROPHILS PERCENT AUTO 52.2 % (40.0-78.1); PLATELET COUNT,PLT 760 K/uL (130-375); RED BLOOD CELL COUNT 4.11 M/uL (3.77-5.24)
[2023-12-23 20:58] LABS: A/G RATIO 0.6 (1.2-2.2); ALANINE AMINOTRANSFERASE,ALT 22 U/L (12-78); ALBUMIN 2.7 g/dL (3.4-5.0); ALKALINE PHOSPHATASE 143 U/L (46-116); ASPARTATE AMNIOTRANSFERASE,AST 21 U/L (15-37); BILIRUBIN TOTAL 0.2 mg/dL (0.2-1.0); BLOOD UREA NITROGEN,BUN 14 mg/dL (7-18); CALCIUM 9.3 mg/dL (8.5-10.1); CARBON DIOXIDE,CO2 34 mmol/L (21-32); CHLORIDE,CL 98 mmol/L (100-108); EST CRCL DRUG DOSING (CG) 56.72 mL/min; ESTIMATED GFR 64 mL/min (>60); GLUCOSE RANDOM 104 mg/dL (74-106); POTASSIUM,K 3.4 mmol/L (3.6-5.2); PROTEIN TOTAL,TP 7.1 g/dL (6.4-8.2); SODIUM,NA 139 mmol/L (140-148)
[2023-12-23 20:59] LABS: ANION GAP 10.4 mmol/L (5.0-14.0)
[2023-12-23] MEDS: Sodium Chloride 0.9% 1,000 ML IV SCH (21:28)
[2023-12-23] MEDS ORDERED: Naloxone 0.4 MG/ML SDV IVPUSH PRN (21:33)
[2023-12-23 21:36] LABS: BILIRUBIN,URINE NEGATIVE (NEGATIVE); COLOR,URINE YELLOW (YELLOW); GLUCOSE,URINE NEGATIVE (NEGATIVE); KETONES,URINE NEGATIVE (NEGATIVE); LEUKOCYTE ESTERASE,URINE NEGATIVE (NEGATIVE); NITRITE,URINE NEGATIVE (NEGATIVE); OCCULT BLOOD,URINE NEGATIVE (NEGATIVE); PH,URINE 7.5 (5.0-8.0); PROTEIN,URINE NEGATIVE (NEGATIVE); UROBILINOGEN,URINE 0.2 EU/dL (0.2-1.0)
[2023-12-23 21:43] LABS: APPEARANCE,URINE SLIGHTLY CLOUDY (CLEAR); BACTERIA,URINE FEW; EPITHELIAL CELLS,URINE FEW; MUCUS,URINE NOT SEEN; RBC,URINE 0-5 (0-5); WBC,URINE 0-5 (0-5)
[2023-12-23 21:44] LABS: AMORPHOUS SEDIMENT,URINE NOT SEEN
[2023-12-23] MEDS: HYDROmorphone 1 MG/ML Syringe IVPUSH ONE (21:44)
[2023-12-23] MEDS: Vancomycin 2 GM in Sodium Chloride 0.9% 500 ML IV ONE (21:44)
[2023-12-23] MEDS ORDERED: Docusate Sodium 100 MG Cap PO PRN (22:41)
[2023-12-23] MEDS ORDERED: Loperamide 2 MG Cap PO PRN (22:41)
[2023-12-23] MEDS ORDERED: Bisacodyl 5 MG Tab PO PRN (22:41)
[2023-12-23] MEDS: Nicotine 14 MG/24 Hr Patch TRDERM SCH (23:04)
[2023-12-23] MEDS: Gabapentin 300 MG Cap PO SCH (23:04)
[2023-12-23] MEDS: Cyclobenzaprine 10 MG Tab PO SCH (23:04)
[2023-12-23] MEDS: Magnesium Oxide 400 MG Tab PO SCH (23:04)
[2023-12-23] MEDS: Pantoprazole 40 MG Vial IVPUSH SCH (23:05)
[2023-12-24] MEDS: Sodium Chloride 0.9% 1,000 ML IV SCH (01:52)
[2023-12-24 05:21] LABS: HEMOGLOBIN 11.9 g/dL (11.2-15.5); MEAN CORPUSCULAR HEMOGLOBIN 32.8 pg (31.6-35.5); MEAN CORPUSCULAR HGB CONC 33.1 g/dL (31.6-35.5); MEAN CORPUSCULAR VOLUME 99.2 fL (81.4-99.0); RED BLOOD CELL COUNT 3.63 M/uL (3.77-5.24); WHITE BLOOD CELL COUNT,WBC 11.7 K/uL (3.2-11.0)
[2023-12-24 05:38] LABS: CALCIUM 8.2 mg/dL (8.5-10.1); CREATININE 0.7 mg/dL (0.6-1.0); EST CRCL DRUG DOSING (CG) 81.03 mL/min; POTASSIUM,K 3.3 mmol/L (3.6-5.2)
[2023-12-24 05:44] LABS: ANION GAP 10.3 mmol/L (5.0-14.0)
[2023-12-24] MEDS: Acetaminophen/oxyCODONE 325-5 MG Tab PO PRN (07:40)
[2023-12-24] MEDS: Insulin Lispro 100 Unit/ML 3 ML KwikPen SUBCUT SCH (08:09)
[2023-12-24] MEDS: Potassium Chloride 20 MEQ Tab.ER PO ONE (08:34)
[2023-12-24] MEDS: Lidocaine 4% 1 each Patch TOP SCH (08:35)
[2023-12-24] MEDS: Venlafaxine 75 MG Cap.ER PO SCH (08:36)
[2023-12-24] MEDS: QUEtiapine 25 MG Tab PO SCH (08:37)
[2023-12-24] MEDS: Acetaminophen 500 MG Tab PO SCH (08:37)
[2023-12-24] MEDS: atorvaSTATin 20 MG Tab PO SCH (08:37)
[2023-12-24] MEDS: Furosemide 20 MG Tab PO SCH (08:37)
[2023-12-24] MEDS: Calcium Carbonate 500 MG Tab.Chew PO SCH (08:38)
[2023-12-24] MEDS: Enoxaparin 40 MG/0.4 ML Syringe SUBCUT SCH (08:40)
[2023-12-24] MEDS: ClonazePAM 1 MG Tab PO SCH (08:42)
[2023-12-24] MEDS: oxyCODONE 5 MG Tab PO PRN (11:45)
[2023-12-24] MEDS ORDERED: Pantoprazole 40 MG Vial IVPUSH SCH (16:00)
[2023-12-24] MEDS: Zolpidem 5 MG Tab PO SCH (20:51)
[2023-12-24] MEDS: Donepezil 10 MG Tab PO SCH (20:52)
[2023-12-24] MEDS: Melatonin 3 MG Tab PO SCH (20:54)
[2023-12-25 05:57] LABS: HEMATOCRIT 37.8 % (34.3-46.0); HEMOGLOBIN 12.5 g/dL (11.2-15.5); MEAN CORPUSCULAR HEMOGLOBIN 32.9 pg (31.6-35.5); MEAN CORPUSCULAR HGB CONC 33.1 g/dL (31.6-35.5); MEAN CORPUSCULAR VOLUME 99.5 fL (81.4-99.0); RED BLOOD CELL COUNT 3.8 M/uL (3.77-5.24); WHITE BLOOD CELL COUNT,WBC 11.2 K/uL (3.2-11.0)
[2023-12-25 06:11] LABS: ANION GAP 6.1 mmol/L (5.0-14.0); CALCIUM 9.5 mg/dL (8.5-10.1); CREATININE 0.8 mg/dL (0.6-1.0); EST CRCL DRUG DOSING (CG) 70.9 mL/min
[2023-12-26 09:47] VITALS: BP 135/88; PULSE 90
== END 2023-12-26 10:57 | DRG 552 ==
LOC: JP.ED 19:26 → JP.MS 21:49
PROVIDERS: ADMIT Internal Medicine; ATTEND Internal Medicine
DX: M54.50 Low back pain, unspecified (principal); M25.561 Pain in right knee; S32.010A Wedge compression fracture of first lumbar vertebra, initial encounter for closed fracture; F02.83 Dementia in other diseases classified elsewhere, unspecified severity, with mood disturbance; F02.84 Dementia in other diseases classified elsewhere, unspecified severity, with anxiety; E03.9 Hypothyroidism, unspecified; Z87.891 Personal history of nicotine dependence; E87.20 Acidosis, unspecified; Z88.1 Allergy status to other antibiotic agents; R78.81 Bacteremia; Z66 Do not resuscitate; H54.7 Unspecified visual loss; E11.9 Type 2 diabetes mellitus without complications; G30.9 Alzheimer's disease, unspecified; G43.909 Migraine, unspecified, not intractable, without status migrainosus; E89.0 Postprocedural hypothyroidism; R29.6 Repeated falls; E87.6 Hypokalemia; D72.829 Elevated white blood cell count, unspecified; J44.9 Chronic obstructive pulmonary disease, unspecified; F17.210 Nicotine dependence, cigarettes, uncomplicated; Z96.653 Presence of artificial knee joint, bilateral; E21.3 Hyperparathyroidism, unspecified; E78.00 Pure hypercholesterolemia, unspecified; M19.90 Unspecified osteoarthritis, unspecified site; R41.3 Other amnesia; Z88.8 Allergy status to other drugs, medicaments and biological substances; Z79.899 Other long term (current) drug therapy; Z87.11 Personal history of peptic ulcer disease; Z85.43 Personal history of malignant neoplasm of ovary; Z98.49 Cataract extraction status, unspecified eye; Z90.49 Acquired absence of other specified parts of digestive tract; Z90.710 Acquired absence of both cervix and uterus; Z98.890 Other specified postprocedural states; Z99.81 Dependence on supplemental oxygen; X58.XXXA Exposure to other specified factors, initial encounter
CPT/HCPCS: 36415; 71045; 71045-26; 73562-26-RT; 73562-RT; 80048; 80053; 81001; 82947; 83605; 84145; 85025; 85027; 87040; 87086; 96374; 96375; 97110-GO; 97110-GP; 97161-GP; 97165-GO; 97530-GP; 97535-GO; 99223; 99233; 99239; 99284-25; 99285; A9270-GY; J1170; J1650; J1815; J2470; J3370; J7030; J7040; J7050